=== PATIENT | female | born 1980 | race Hispanic/Latino ===

== ENCOUNTER 2018-10-26 09:06 | Emergency (ER) | payer SELFPAY ==
[2018-10-26 09:58] LABS: Absolute Lymphocytes (CBC) 1.9 K/uL (0.7-4.9); Absolute Monocytes 0.5 K/uL (0.1-1.3); Absolute Neutrophil 3.2 K/uL (1.8-8.0); Basophils % 0.5 % (0-1.3); Eosinophils % 2.7 % (0-4.4); Hematocrit 41.4 % (36.0-45.0); Lymphocytes % 33.4 % (15.3-44.8); MPV 6.9 fL (7.6-11.3); Monocytes % 7.8 % (3.3-12.3)
[2018-10-26 10:04] LABS: Urine Blood 2+ (NEG); Urine Glucose NEGATIVE (NEG); Urine Protein NEGATIVE (NEG); Urine Specific Gravity 1.025 (1.005-1.030); Urine pH 5.5 (5.0-7.0)
[2018-10-26] MEDS ORDERED: NA CHLORIDE 0.9% 1,000 ML ONE (10:11)
[2018-10-26] MEDS ORDERED: ONDANSETRON 4 MG/2 ML VIAL ONE (10:11)
[2018-10-26 10:15] LABS: ALT/SGPT 63 U/L (12-78); AST/SGOT 22 U/L (15-37); Albumin 4.3 g/dL (3.4-5.0); Alkaline Phosphatase 85 U/L (45-117); BUN Blood Urea Nitrogen 15 mg/dL (7-18); Bicarbonate 26 mmol/L (21-32); Bilirubin Direct < 0.1 mg/dL (0-0.2); Bilirubin Total 0.3 mg/dL (0.2-1.0); Glucose Level 91 mg/dL (74-106); Lipase 52 U/L (73-393); Potassium 3.7 mmol/L (3.5-5.1); Sodium Level 138 mmol/L (136-145)
[2018-10-26 10:16] LABS: Urine Bacteria 20-50 /HPF (<20); Urine Culture Reflex Order REFLEXED
--- NOTE | 2018-10-26 10:40 | RAD REPORT ---
EXAM DESCRIPTION: CTAbdomen Pelvis W Contrast - 10/26/2018 10:31 am CLINICAL HISTORY: Abdominal pain. ABD PAIN COMPARISON: Abdomen Pelvis W Contrast dated 08/23/2017 TECHNIQUE: Biphasic CT imaging of the abdomen and pelvis was performed with 100 ml non-ionic IV cont rast. All CT scans are performed using dose optimization technique as appropriate and may include automated exposure control or mA/KV adjustment according to patient size. FINDINGS: The lung bases are clear. The liver demonstrates diffuse fatty infiltration. The spleen, pancreas, adrenal glands and kidneys a re within normal limits. Small renal cysts are present bilaterally. No bowel obstruction, free air, free fluid or abscess. The appendix is normal. No evidence of signi ficant lymphadenopathy. Prominent L5-S1 degenerative changes. IMPRESSION: No acute intra-abdominal or pelvic finding. Mild fatty liver.
--- NOTE | 2018-10-26 11:13 | ER ---
Nurse's Notes [facility] Name: Mirna Allen Age: 37 yrs Sex: Female : 1980 Arrival Date: 10/26/2018 Time: 09:08 Bed 19 Private MD: None, None Diagnosis: Diarrhea, unspecified;Urinary tract infection, site not specified;Unspecified abdominal pain Presentation: 10/26 09:27 Presenting complaint: Patient states: abd pain and diarrhea since yesterday. Transition ss of care: patient was not received from another setting of care. Onset of symptoms was October 25, 2018. Risk Assessment: Do you want to hurt yourself or someone else? Patient reports no desire to harm self or others. Initial Sepsis Screen: Does the patient meet any 2 criteria? No. Patient's initial sepsis screen is negative. Does the patient have a suspected source of infection? No. Patient's initial sepsis screen is negative. Care prior to arrival: None. 09:27 Method Of Arrival: Ambulatory ss 09:27 Acuity: WILLIAM 3 ss Historical: - Allergies: 09:45 No Known Allergies; ss - Home Meds: 09:45 None [Active]; ss - PMHx: 09:45 None; ss - PSHx: 09:45 Tubal ligation; ss - Immunization history:: Adult Immunizations up to date. - Social history:: Smoking status: Patient/guardian denies using tobacco. - Ebola Screening: : Patient denies exposure to infectious person Patient denies travel to an Ebola-affected area in the 21 days before illness onset. Screenin:46 Abuse screen: Denies threats or abuse. Denies injuries from another. Nutritional ss screening: No deficits noted. Tuberculosis screening: No symptoms or risk factors identified. Never had TB. Fall Risk None identified. Assessment: 09:45 General: Appears uncomfortable, Behavior is calm, cooperative, Denies fever, feeling ss ill, fatigue, chills. Pain: Complains of pain in abdomen diffusely Pain currently is 8 out of 10 on a pain scale. Quality of pain is described as aching, Is continuous. Neuro: Level of Consciousness is awake, alert, obeys commands, Oriented to person, place, time, situation. Cardiovascular: Capillary refill < 3 seconds is brisk in bilateral fingers. Respiratory: Airway is patent Respiratory effort is even, unlabored, Respiratory pattern is regular, symmetrical. GI: Bowel sounds present X 4 quads. Abd is soft and non tender X 4 quads. Reports diarrhea, nausea. : No signs and/or symptoms were reported regarding the genitourinary system. Denies burning with urination, urinary frequency. EENT: Oral mucosa is moist. Throat is clear. Derm: Skin is intact, is healthy with good turgor, Skin is dry, Skin is pink, warm \T\ dry. normal. Musculoskeletal: Circulation, motion, and sensation intact. Range of motion: intact in all extremities, Swelling absent. 10:30 Reassessment: Patient appears in no apparent distress at this time. No changes from previously documented assessment. Patient and/or family updated on plan of care and expected duration. Pain level reassessed. 11:30 Reassessment: Patient appears in no apparent distress at this time. Patient and/or ss family updated on plan of care and expected duration. Pain level reassessed. Patient is alert, oriented x 3, equal unlabored respirations, skin warm/dry/pink. Patient states feeling better. Patient states symptoms have improved. Vital Signs: 09:30 BP 126 / 93; Pulse 87; Resp 16; Temp 98.3(O); Pulse Ox 100% on R/A; Weight 65.77 kg; ss Height 4 ft. 11 in. (149.86 cm); Pain 8/10; 11:46 BP 109 / 71; Pulse 65; Resp 15; Pulse Ox 100% on R/A; Pain 5/10; ss 09:30 Body Mass Index 29.29 (65.77 kg, 149.86 cm) ED Course: 09:08 Patient arrived in ED. mr 09:08 None, None is Private Physician. mr 09:24 Poli Alexander NP is PHCP. pm1 09:24 Dmitri Garcia MD is Attending Physician. pm1 09:28 Triage completed. ss 09:30 Arm band placed on right wrist. ss 09:42 Alma Adam, CASTRO is Primary Nurse. ss 09:46 Patient has correct armband on for positive identification. ss 09:46 Inserted saline lock: 20 gauge in right antecubital area, using aseptic technique. Blood collected. 10:27 CT completed. Patient tolerated procedure well. Patient moved to CT via wheelchair. [id number] Patient moved back from CT. 10:28 Urine collected: clean catch specimen, cloudy. mh5 10:32 CT Abd/Pelvis - W/Contrast: IV contrast only In Process Unspecified. EDMS 11:48 No provider procedures requiring assistance completed. IV discontinued, intact, ss bleeding controlled, No redness/swelling at site. Pressure dressing applied. Administered Medications: 10:09 Drug: NS 0.9% 1000 ml Route: IV; Rate: 1000 ml; Site: right antecubital; ss 11:48 Follow up: IV Status: Completed infusion ss 10:09 Drug: Zofran 4 mg Route: IVP; Site: right antecubital; ss 10:56 Follow up: Response: No adverse reaction; Nausea is decreased ss 11:13 Drug: TORadol 30 mg Route: IVP; Site: right antecubital; ss 11:50 Follow up: Response: No adverse reaction; Pain is decreased ss 11:15 Drug: Rocephin 1 grams Route: IV; Rate: calculated rate; Site: right antecubital; ss 11:15 Follow up: IV Status: Completed infusion ss Outcome: 11:12 Discharge ordered by . pm1 11:48 Discharged to home ambulatory, with family. ss 11:48 Condition: good 11:48 Discharge instructions given to patient, family, Instructed on discharge instructions, follow up and referral plans. medication usage, Demonstrated understanding of instructions, follow-up care, medications, Prescriptions given X 3. 11:49 Patient left the ED. ss Addendum: 10/29/2018 07:35 Addendum: Culture Results: Positive urine culture. No further action required. Bacteria s s sensitive to prescribed antibiotic. Signatures: Dispatcher [employer] EDIA XiaoCarla reyes Shelby, RN RN ss Poli Alexander, DARSHAN SOFTWARE QUALITY ASSURANCE ENGINEER pm1 Angelica Alcala Ramiro Anderson, Mirna jg6
--- NOTE | 2018-10-26 11:13 | EDPHYS ---
Physician Documentation [facility] Name: Mirna Allen Age: 37 yrs Sex: Female : 1980 Arrival Date: 10/26/2018 Time: 09:08 Bed 19 Private MD: None, None ED Physician Dmitri Garcia HPI: 10/26 11:07 This 37 yrs old Female presents to ER via Ambulatory with complaints of pm1 Abdominal Pain. 11:07 The patient presents with abdominal pain that is diffuse. Onset: The symptoms/episode pm1 began/occurred yesterday. The symptoms do not radiate. Associated signs and symptoms: Pertinent positives: diarrhea, nausea, Pertinent negatives: blood in stools, chest pain, dysuria, fever, headache, shortness of breath, vomiting. The symptoms are described as crampy. Modifying factors: The symptoms are alleviated by nothing, the symptoms are aggravated by bowel movement - diarrhea. Severity of pain: in the emergency department the pain is actually worse. The patient has not experienced similar symptoms in the past. The patient has not recently seen a physician. Historical: - Allergies: 09:45 No Known Allergies; ss - Home Meds: 09:45 None [Active]; ss - PMHx: 09:45 None; ss - PSHx: 09:45 Tubal ligation; ss - Immunization history:: Adult Immunizations up to date. - Social history:: Smoking status: Patient/guardian denies using tobacco. - Ebola Screening: : Patient denies exposure to infectious person Patient denies travel to an Ebola-affected area in the 21 days before illness onset. ROS: 11:07 Constitutional: Negative for fever, chills, and weight loss, Eyes: Negative for injury, pm1 pain, redness, and discharge, ENT: Negative for injury, pain, and discharge, Neck: Negative for injury, pain, and swelling, Cardiovascular: Negative for chest pain, palpitations, and edema, Respiratory: Negative for shortness of breath, cough, wheezing, and pleuritic chest pain. 11:07 Back: Negative for injury and pain, : Negative for injury, bleeding, discharge, and swelling, MS/Extremity: Negative for injury and deformity, Skin: Negative for injury, rash, and discoloration, Neuro: Negative for headache, weakness, numbness, tingling, and seizure. 11:07 Abdomen/GI: Positive for abdominal pain, nausea, diarrhea, abdominal cramps, Negative for vomiting, hematemesis. Exam: 11:07 Constitutional: This is a well developed, well nourished patient who is awake, alert, pm1 and in no acute distress. Head/Face: Normocephalic, atraumatic. Eyes: Pupils equal round and reactive to light, extra-ocular motions intact. Lids and lashes normal. Conjunctiva and sclera are non-icteric and not injected. Cornea within normal limits. Periorbital areas with no swelling, redness, or edema. ENT: Nares patent. No nasal discharge, no septal abnormalities noted. Tympanic membranes are normal and external auditory canals are clear. Oropharynx with no redness, swelling, or masses, exudates, or evidence of obstruction, uvula midline. Mucous membranes moist. Neck: Trachea midline, no thyromegaly or masses palpated, and no cervical lymphadenopathy. Supple, full range of motion without nuchal rigidity, or vertebral point tenderness. No Meningismus. Chest/axilla: Normal chest wall appearance and motion. Nontender with no deformity. No lesions are appreciated. Cardiovascular: Regular rate and rhythm with a normal S1 and S2. No gallops, murmurs, or rubs. No pulse deficits. Respiratory: Lungs have equal breath sounds bilaterally, clear to auscultation and percussion. No rales, rhonchi or wheezes noted. No increased work of breathing, no retractions or nasal flaring. Back: No spinal tenderness. No costovertebral tenderness. Full range of motion. Skin: Warm, dry with normal turgor. Normal color with no rashes, no lesions, and no evidence of cellulitis. MS/ Extremity: Pulses equal, no cyanosis. Neurovascular intact. Full, normal range of motion. 11:07 Abdomen/GI: Inspection: abdomen appears normal, Bowel sounds: normal, Palpation: soft, mild abdominal tenderness, in the abdomen diffusely, mass, is not appreciated, rebound tenderness, is not appreciated. 11:07 Neuro: Orientation: is normal, Motor: is normal. Vital Signs: 09:30 BP 126 / 93; Pulse 87; Resp 16; Temp 98.3(O); Pulse Ox 100% on R/A; Weight 65.77 kg; ss Height 4 ft. 11 in. (149.86 cm); Pain 8/10; 11:46 BP 109 / 71; Pulse 65; Resp 15; Pulse Ox 100% on R/A; Pain 5/10; ss 09:30 Body Mass Index 29.29 (65.77 kg, 149.86 cm) ss MDM: 09:27 Patient medically screened. pm1 09:27 Patient medically screened. nam 11:07 Data reviewed: vital signs. Data interpreted: Pulse oximetry: on room air is 100 %. pm1 Interpretation: normal. Counseling: I had a detailed discussion with the patient and/or guardian regarding: the historical points, exam findings, and any diagnostic results supporting the discharge/admit diagnosis, lab results, radiology results, the need for outpatient follow up, to return to the emergency department if symptoms worsen or persist or if there are any questions or concerns that arise at home. 10/26 09:28 Order name: Basic Metabolic Panel; Complete Time: 10:19 pm10/26 09:28 Order name: CBC with Diff; Complete Time: 10:11 pm10/26 09:28 Order name: Creatinine for Radiology; Complete Time: 10:19 pm10/26 09:28 Order name: Hepatic Function; Complete Time: 10:19 pm10/26 09:28 Order name: Lipase; Complete Time: 10:19 pm10/26 09:53 Order name: Urine Microscopic Only; Complete Time: 10:19 pm10/26 09:56 Order name: Urine Dipstick--Ancillary (enter results); Complete Time: 10:19 bd 10/26 09:56 Order name: Urine --Ancillary (enter results); Complete Time: 10:19 bd 10/26 10:02 Order name: CT Abd/Pelvis - W/Contrast: IV contrast only; Complete Time: 10:43 pm1 10/26 10:17 Order name: Urine Culture EDMS 10/26 09:28 Order name: IV Saline Lock; Complete Time: 09:53 pm10/26 09:28 Order name: Labs collected and sent; Complete Time: 09:53 pm10/26 09:28 Order name: Urine Dipstick-Ancillary (obtain specimen); Complete Time: 09:53 pm1 10/26 09:28 Order name: Urine Test (obtain specimen); Complete Time: 09:53 pm1 Administered Medications: 10:09 Drug: NS 0.9% 1000 ml Route: IV; Rate: 1000 ml; Site: right antecubital; ss 11:48 Follow up: IV Status: Completed infusion ss 10:09 Drug: Zofran 4 mg Route: IVP; Site: right antecubital; ss 10:56 Follow up: Response: No adverse reaction; Nausea is decreased ss 11:13 Drug: TORadol 30 mg Route: IVP; Site: right antecubital; ss 11:50 Follow up: Response: No adverse reaction; Pain is decreased ss 11:15 Drug: Rocephin 1 grams Route: IV; Rate: calculated rate; Site: right antecubital; ss 11:15 Follow up: IV Status: Completed infusion ss Disposition: 11:57 Co-signature as Attending Physician, Dmitri Garcia MD I agree with the assessment and nam plan of care. Disposition: 10/26/18 11:12 Discharged to Home. Impression: Unspecified abdominal pain, Diarrhea, unspecified, Urinary tract infection, site not specified. - Condition is Stable. - Discharge Instructions: Abdominal Pain, Adult, Food Choices to Help Relieve Diarrhea, Adult, Diarrhea, Adult, Urinary Tract Infection, Adult. - Prescriptions for Bentyl 20 mg Oral Tablet - take 1 tablet by ORAL route every 6 hours As needed; 20 tablet. Zofran 4 mg Oral Tablet - take 1 tablet by ORAL route every 12 hours As needed; 20 tablet. Bactrim DS 800- 160 mg Oral Tablet - take 1 tablet by ORAL route every 12 hours for 10 days; 20 tablet. - Work release form, Family Work Release, Medication Reconciliation Form, Thank You Letter, Antibiotic Education, Prescription Opioid Use form. - Follow up: Emergency Department; When: As needed; Reason: Worsening of condition. Follow up: Private Physician; When: 2 - 3 days; Reason: Recheck today's complaints, Continuance of care, Re-evaluation by your physician. - Problem is new. - Symptoms have improved. Signatures: Dispatcher [employer] Dmitri Alford MD MD cha Smirch, Shelby, RN RN ss Poli Alexander, DARSHAN GERIATRIC NURSE pm1 Corrections: (The following items were deleted from the chart) 11:49 11:12 10/26/2018 11:12 Discharged to Home. Impression: Unspecified abdominal ss painDiarrhea, unspecified; Urinary tract infection, site not specified. Condition is Stable. Forms are Medication Reconciliation Form, Thank You Letter, Antibiotic Education, Prescription Opioid Use. Follow up: Emergency Department; When: As needed; Reason: Worsening of condition. Follow up: Private Physician; When: 2 - 3 days; Reason: Recheck today's complaints, Continuance of care, Re-evaluation by your physician. Problem is new. Symptoms have improved. pm1
[2018-10-26] MEDS ORDERED: CEFTRIAXONE/SWI 1gm 1 GM/10 ML SYR ONE (11:14)
[2018-10-26] MEDS ORDERED: KETOROLAC 30 MG/ML INJ ONE (11:14)
== END 2018-10-26 11:49 | disposition home or self-care (01) ==
LOC: ER 09:06
DX: N39.0 Urinary tract infection, site not specified (principal); R19.7 Diarrhea, unspecified
CPT/HCPCS: 36415; 74177; 80048; 80076; 81003; 81015; 81025; 83690; 85025; 87077; 87086; 87088; 87186; 96361; 96374; 96375; 99284; J0696; J2405; J7030; Q9967

== ENCOUNTER 2018-11-14 07:56 | Emergency (ER) | payer SELFPAY ==
[2018-11-14] MEDS ORDERED: DEXAMETHASONE 10 MG/ML VIAL ONE (08:26)
[2018-11-14] MEDS ORDERED: KETOROLAC 30 MG/ML INJ ONE (08:26)
--- NOTE | 2018-11-14 08:28 | EDPHYS ---
Physician Documentation [facility] Name: Mirna Allen Age: 37 yrs Sex: Female : 1980 Arrival Date: 11/14/2018 Time: 07:59 Bed 5 Private MD: ED Physician Fortino Tidwell HPI: 11/14 08:17 This 37 yrs old Female presents to ER via Ambulatory with complaints of Low rn Back Pain, Leg Pain. 08:17 The patient presents with pain that is acute. The symptoms are located in the low back. rn The pain radiates to the right leg. Onset: The symptoms/episode began/occurred 2 day(s) ago. Modifying factors: The patient symptoms are alleviated by specific position, the patient symptoms are aggravated by any movement. Severity of symptoms: At their worst the symptoms were mild, in the emergency department the symptoms are unchanged. The patient has not experienced similar symptoms in the past. Reports Wednesday began with right lower back pain, now back pain has resolved but is experiencing right leg pain, feels "cold" and tingling. Fell recently but did not injure back. No bowel/bladder issues. No chest pain/abd pain. No weakness of affected leg. Reports chronic back pain. . Historical: - Allergies: 08:02 No Known Allergies; ss - Home Meds: 08:02 None [Active]; ss - PMHx: 08:02 None; ss - PSHx: 08:02 Tubal ligation; ss - Immunization history:: Adult Immunizations up to date. - Social history:: Smoking status: Patient uses tobacco products, smokes one-half pack cigarettes per day. - Ebola Screening: : Patient denies exposure to infectious person Patient denies travel to an Ebola-affected area in the 21 days before illness onset. - Family history:: not pertinent. - Hospitalizations: : No recent hospitalization is reported. ROS: 08:17 Constitutional: Negative for fever, chills, and weight loss, Eyes: Negative for injury, rn pain, redness, and discharge, Neck: Negative for injury, pain, and swelling, Cardiovascular: Negative for chest pain, palpitations, and edema, Respiratory: Negative for shortness of breath, cough, wheezing, and pleuritic chest pain, Abdomen/GI: Negative for abdominal pain, nausea, vomiting, diarrhea, and constipation, Back: Negative for injury and pain, MS/Extremity: + right leg pain Skin: Negative for injury, rash, and discoloration, Neuro: Negative for headache, weakness, and seizure. Exam: 08:17 Constitutional: This is a well developed, well nourished patient who is awake, alert, rn appears uncomfortable, ambulatory to room Head/Face: Normocephalic, atraumatic. Eyes: Pupils equal round and reactive to light, extra-ocular motions intact. Lids and lashes normal. Conjunctiva and sclera are non-icteric and not injected. Cornea within normal limits. Periorbital areas with no swelling, redness, or edema. Abdomen/GI: soft, non-tender Back: No spinal tenderness. No costovertebral tenderness. Full range of motion. Skin: Warm, dry with normal turgor. Normal color with no rashes, no lesions, and no evidence of cellulitis. MS/ Extremity: Pulses equal, no cyanosis. Neurovascular intact. Full, normal range of motion. Equal circumference. Neuro: Awake and alert, GCS 15, oriented to person, place, time, and situation. Cranial nerves II-XII grossly intact. Motor strength 5/5 in all extremities. Sensory grossly intact. Cerebellar exam normal. Normal gait. Vital Signs: 08:02 BP 125 / 86; Pulse 104; Resp 18; Temp 97.6(TE); Pulse Ox 98% on R/A; Weight 63.5 kg; ss Height 5 ft. 11 in. (180.34 cm); Pain 8/10; 08:02 Body Mass Index 19.53 (63.50 kg, 180.34 cm) MDM: 08:04 Patient medically screened. rn 08:26 Differential diagnosis: arthritis, strain, sciatica. Data reviewed: vital signs, nurses rn notes, and as a result, I will discharge patient. Counseling: I had a detailed discussion with the patient and/or guardian regarding: the historical points, exam findings, and any diagnostic results supporting the discharge/admit diagnosis, the need for outpatient follow up, to return to the emergency department if symptoms worsen or persist or if there are any questions or concerns that arise at home. Special discussion: I discussed with the patient/guardian in detail that at this point there is no indication for admission to the hospital. It is understood, however, that if the symptoms persist or worsen the patient needs to return immediately for re-evaluation. Based on the history and exam findings, there is no indication for further emergent testing or inpatient evaluation. I discussed with the patient/guardian the need to see the back specialist for further evaluation of the symptoms. I discussed with the patient/guardian the need to see the primary care provider for further evaluation of the symptoms. Administered Medications: 08: Drug: TORadol 60 mg Route: IM; Site: left gluteus; aa5 08:40 Follow up: Response: No adverse reaction; Pain is decreased aa5 08:19 Drug: Decadron 10 mg Route: IM; Site: right gluteus; aa5 08:40 Follow up: Response: No adverse reaction; Pain is decreased aa5 Disposition: 11/14/18 08:27 Discharged to Home. Impression: Radiculopathy, lumbosacral region. - Condition is Stable. - Discharge Instructions: Lumbosacral Radiculopathy. - Prescriptions for Cyclobenzaprine 10 mg Oral Tablet - take 1 tablet by ORAL route every 8-12 hours As needed; 20 tablet. Diclofenac Sodium 75 mg Oral Tablet, Delayed Release (E.C.) - take 1 tablet by ORAL route 2 times per day; 20 tablet. Medrol (Rusty) 4 mg Oral Tablets, Dose Pack - take 1 tablet by ORAL route as directed - follow package instructions; 1 packet. - Work release form, Medication Reconciliation Form, Thank You Letter, Antibiotic Education, Prescription Opioid Use form. - Follow up: Private Physician; When: As needed; Reason: Recheck today's complaints, Re-evaluation by your physician. - Problem is new. - Symptoms have improved. Signatures: Fortino Tidwell MD MD rn Calderon, Audri, RN RN aa5 Alma Adam RN RN ss Corrections: (The following items were deleted from the chart) 08:46 08:27 11/14/2018 08:27 Discharged to Home. Impression: Radiculopathy, lumbosacral aa5 region. Condition is Stable. Forms are Medication Reconciliation Form, Thank You Letter, Antibiotic Education, Prescription Opioid Use. Follow up: Private Physician; When: As needed; Reason: Recheck today's complaints, Re-evaluation by your physician. Problem is new. Symptoms have improved. rn
--- NOTE | 2018-11-14 08:28 | ER ---
Nurse's Notes [facility] Name: Mirna Allen Age: 37 yrs Sex: Female : 1980 Arrival Date: 11/14/2018 Time: 07:59 Bed 5 Private MD: Diagnosis: Radiculopathy, lumbosacral region Presentation: 11/14 08:01 Presenting complaint: Patient states: Pain to R buttock that radiates down R leg began ss 2 days ago. Transition of care: patient was not received from another setting of care. Onset of symptoms was November 12, 2018. Risk Assessment: Do you want to hurt yourself or someone else? Patient reports no desire to harm self or others. Initial Sepsis Screen: Does the patient meet any 2 criteria? No. Patient's initial sepsis screen is negative. Does the patient have a suspected source of infection? No. Patient's initial sepsis screen is negative. Care prior to arrival: None. 08:01 Method Of Arrival: Ambulatory ss 08:01 Acuity: WILLIAM 4 ss Historical: - Allergies: 08:02 No Known Allergies; ss - Home Meds: 08:02 None [Active]; ss - PMHx: 08:02 None; ss - PSHx: 08:02 Tubal ligation; ss - Immunization history:: Adult Immunizations up to date. - Social history:: Smoking status: Patient uses tobacco products, smokes one-half pack cigarettes per day. - Ebola Screening: : Patient denies exposure to infectious person Patient denies travel to an Ebola-affected area in the 21 days before illness onset. - Family history:: not pertinent. - Hospitalizations: : No recent hospitalization is reported. Screenin:15 Abuse screen: Denies threats or abuse. Nutritional screening: No deficits noted. aa5 Tuberculosis screening: No symptoms or risk factors identified. Fall Risk None identified. Assessment: 08:15 General: Appears uncomfortable, Behavior is calm, cooperative. Pain: Complains of pain aa5 in right gluteus mariely Pain radiates to right leg Pain currently is 8 out of 10 on a pain scale. Quality of pain is described as sharp, shooting, Pain began 2-3 days ago. Is continuous. Neuro: Level of Consciousness is awake, alert, obeys commands, Oriented to person, place, time, situation. Cardiovascular: Patient's skin is warm and dry. Respiratory: Airway is patent Respiratory effort is even, unlabored, Respiratory pattern is regular, symmetrical. GI: No signs and/or symptoms were reported involving the gastrointestinal system. : No signs and/or symptoms were reported regarding the genitourinary system. EENT: No signs and/or symptoms were reported regarding the EENT system. Derm: Skin is pink, warm \T\ dry. Musculoskeletal: Range of motion: intact in all extremities. 08:43 Reassessment: Patient is alert, oriented x 3, equal unlabored respirations, skin aa5 warm/dry/pink. Patient states feeling better. Vital Signs: 08:02 BP 125 / 86; Pulse 104; Resp 18; Temp 97.6(TE); Pulse Ox 98% on R/A; Weight 63.5 kg; ss Height 5 ft. 11 in. (180.34 cm); Pain 8/10; 08:02 Body Mass Index 19.53 (63.50 kg, 180.34 cm) ED Course: 07:59 Patient arrived in ED. rg4 08:02 Triage completed. ss 08:02 Arm band placed on right wrist. ss 08:03 Fortino Tidwell MD is Attending Physician. rn 08:04 Zahida Barber RN is Primary Nurse. aa5 08:15 Patient has correct armband on for positive identification. Bed in low position. Call aa5 light in reach. Side rails up X 1. 08:43 No provider procedures requiring assistance completed. Patient did not have IV access aa5 during this emergency room visit. Administered Medications: 08:19 Drug: TORadol 60 mg Route: IM; Site: left gluteus; aa5 08:40 Follow up: Response: No adverse reaction; Pain is decreased aa5 08:19 Drug: Decadron 10 mg Route: IM; Site: right gluteus; aa5 08:40 Follow up: Response: No adverse reaction; Pain is decreased aa5 Outcome: 08:27 Discharge ordered by . rn 08:43 Discharged to home ambulatory. aa5 08:43 Condition: improved 08:43 Discharge instructions given to patient, Instructed on discharge instructions, follow up and referral plans. medication usage, Demonstrated understanding of instructions, follow-up care, medications, Prescriptions given X 3. 08:46 Patient left the ED. aa5 Signatures: Fortino Tidwell MD MD rn Calderon, Audri, RN RN aa5 Alma Adam, CASTRO RN Nuzhat Perry 4
== END 2018-11-14 08:46 | disposition home or self-care (01) ==
LOC: ER 07:56
DX: M54.17 Radiculopathy, lumbosacral region (principal); F17.210 Nicotine dependence, cigarettes, uncomplicated
CPT/HCPCS: 96372; 99283; J1100

== ENCOUNTER 2019-03-05 09:47 | Emergency (ER) | payer OTHER, SELFPAY ==
[2019-03-05] MEDS ORDERED: ACETAMINOPHEN 325 MG TABLET ONE (10:39)
[2019-03-05] MEDS ORDERED: IBUPROFEN 400 MG TAB ONE (10:39)
[2019-03-05 10:50] LABS: Urine Blood 2+ (NEG); Urine Glucose NEGATIVE (NEG); Urine Protein NEGATIVE (NEG); Urine Specific Gravity >1.030 (1.005-1.030); Urine pH 5.5 (5.0-7.0)
--- NOTE | 2019-03-05 11:29 | RAD REPORT ---
EXAM DESCRIPTION: RAD - Knee Left 3 View - 03/05/2019 11:17 am CLINICAL HISTORY: Left knee pain COMPARISON: None. FINDINGS: No fracture, dislocation or periosteal reaction.No joint effusion seen. No joint space [place] rowing. No soft tissue abnormality. IMPRESSION: Negative left knee. Clinical concerns for internal derangement or occult bony injury could be further assessed with MR im aging.
--- NOTE | 2019-03-05 11:35 | EDPHYS ---
Physician Documentation [facility] Name: Mirna Allen Age: 38 yrs Sex: Female : 1980 Arrival Date: 03/05/2019 Time: 09:51 Bed 18 Private MD: FLORA Physician Dmitri Garcia HPI: 03/05 10:15 This 38 yrs old Female presents to ER via Ambulatory with complaints of Knee cp Injury. 10:15 The patient presents with an injury, pain, that is acute, swelling, tenderness. The cp complaints affect the left knee. Context: The problem was sustained at work, resulted from fall after stepping off lift that was 2-3 feet off ground at work. Patient reports she landed directly onto knee, the patient is not able to bear weight, must have assistance. Onset: The symptoms/episode began/occurred just prior to arrival. Associated signs and symptoms: Pertinent negatives numbness. Historical: - Allergies: 09:58 No Known Allergies; ss - Home Meds: 09:58 None [Active]; ss - PMHx: 09:58 None; ss - PSHx: 09:58 Tubal ligation; ss - Immunization history:: Adult Immunizations up to date. - Social history:: Smoking status: Patient/guardian denies using tobacco. - Ebola Screening: : Patient denies exposure to infectious person Patient denies travel to an Ebola-affected area in the 21 days before illness onset. ROS: 10:22 Constitutional: Negative for chills, fever, poor PO intake. cp 10:22 Cardiovascular: Negative for chest pain. 10:22 Respiratory: Negative for cough, shortness of breath, wheezing. 10:22 Abdomen/GI: Negative for abdominal pain, nausea, vomiting, and diarrhea. 10:22 MS/extremity: Positive for pain, tenderness, of the left knee. 10:22 Neuro: Negative for numbness. 10:22 All other systems are negative. Exam: 10:30 Constitutional: The patient appears in no acute distress, alert, awake, non-toxic, well cp developed, well nourished. 10:30 Head/Face: Normocephalic, atraumatic. cp 10:30 Eyes: Periorbital structures: appear normal, Conjunctiva: normal, Lids and lashes: appear normal, bilaterally. 10:30 ENT: External ear(s): are unremarkable, Nose: is normal, Mouth: is normal. 10:30 Chest/axilla: Inspection: normal. 10:30 Cardiovascular: Rate: normal, Rhythm: regular. 10:30 Respiratory: the patient does not display signs of respiratory distress, Respirations: normal, no use of accessory muscles, no retractions, no splinting, no tachypnea. 10:30 Abdomen/GI: Inspection: abdomen appears normal. 10:30 Musculoskeletal/extremity: Extremities: grossly normal except: noted in the left knee: pain, swelling, tenderness, There is no evidence of deformity, ROM: limited passive range of motion due to pain, in the left knee, Perfusion: the extremity is normally perfused throughout, Sensation intact. Vital Signs: 09:58 BP 110 / 83; Pulse 89; Resp 15; Temp 98.4(O); Pulse Ox 100% on R/A; Weight 65.77 kg; ss Height 4 ft. 11 in. (149.86 cm); Pain 10/10; 09:58 Body Mass Index 29.29 (65.77 kg, 149.86 cm) ss Procedures: 11:55 Splinting: Splint applied to left knee using knee immobilizer, applied by nurse. cp Examined by me, post splint application: neurovascular intact, Patient tolerated well. 11:55 Crutch training provided to patient and/or family. Return demonstration given. cp MDM: 09:57 Patient medically screened. nam 10:30 Differential diagnosis: dislocation, closed fracture, contusion. cp 11:35 Data reviewed: vital signs, nurses notes, radiologic studies, plain films. cp 11:35 Test interpretation: by ED physician or midlevel provider: xrays of left knee negative cp for fracture. Counseling: I had a detailed discussion with the patient and/or guardian regarding: the historical points, exam findings, and any diagnostic results supporting the discharge/admit diagnosis, radiology results, the need for outpatient follow up, a family practitioner, to return to the emergency department if symptoms worsen or persist or if there are any questions or concerns that arise at home. Response to treatment: the patient's symptoms have mildly improved after treatment, and as a result, I will discharge patient. 03/05 10:34 Order name: Urine Dipstick--Ancillary (enter results); Complete Time: 11:26 bd 03/05 11:25 Interpretation: Normal except: UBLD 2+; U NIT POSITIVE. cp 03/05 10:34 Order name: Urine --Ancillary (enter results); Complete Time: 11:26 bd 03/05 10:13 Order name: XRAY Knee LEFT 3 view; Complete Time: 11:30 cp 03/05 11:30 Interpretation: Report reviewed. cp 03/05 11:32 Order name: Crutches; Complete Time: 12:00 cp 03/05 11:32 Order name: Knee Immobilizer; Complete Time: 12:00 cp Administered Medications: 10:38 Drug: Ibuprofen 800 mg Route: PO; em 12:02 Follow up: Response: No adverse reaction; Pain is decreased em 10:38 Drug: Tylenol 650 mg Route: PO; em 12:02 Follow up: Response: No adverse reaction; Pain is decreased em Disposition: 12:15 Chart complete. 03/06 07:18 Co-signature as Attending Physician, Dmitri Garcia MD I agree with the assessment and nam plan of care. Disposition: 03/05/19 11:35 Discharged to Home. Impression: Pain in left knee - from fall. - Condition is Stable. - Discharge Instructions: Knee Immobilizer, Knee Pain. - Prescriptions for Naprosyn 500 mg Oral Tablet - take 1 tablet by ORAL route 2 times per day take with food; 20 tablet. - Work release form, Medication Reconciliation Form, Thank You Letter, Antibiotic Education, Prescription Opioid Use form. - Follow up: Nelson Carrizales MD; When: 2 - 3 days; Reason: Recheck today's complaints. - Problem is new. - Symptoms have improved. Signatures: Dispatcher [employer] Dmitri Alford MD MD cha Munoz, Edgar, [employer] MACHINE OPERATOR [employer] MACHINE OPERATOR Alma De Jesus RN RN Dmitri Gan PA PA cp Corrections: (The following items were deleted from the chart) 03/05 12:03 11:35 03/05/2019 11:35 Discharged to Home. Impression: Pain in left knee - from fall. em Condition is Stable. Forms are Medication Reconciliation Form, Thank You Letter, Antibiotic Education, Prescription Opioid Use. Follow up: Nelson Carrizales; When: 2 - 3 days; Reason: Recheck today's complaints. Problem is new. Symptoms have improved. cp
--- NOTE | 2019-03-05 11:35 | ER ---
Nurse's Notes [facility] Name: Mirna Allen Age: 38 yrs Sex: Female : 1980 Arrival Date: 03/05/2019 Time: 09:51 Bed 18 Private MD: Diagnosis: Pain in left knee-from fall Presentation: 03/05 09:56 Presenting complaint: Patient states: Fell off of lift at work 2-3 feet onto L knee. ss C/o L knee pain. No swelling noted. Transition of care: patient was not received from another setting of care. Onset of symptoms was March 05, 2019. Risk Assessment: Do you want to hurt yourself or someone else? Patient reports no desire to harm self or others. Initial Sepsis Screen: Does the patient meet any 2 criteria? No. Patient's initial sepsis screen is negative. Does the patient have a suspected source of infection? No. Patient's initial sepsis screen is negative. Care prior to arrival: None. 09:56 Method Of Arrival: Ambulatory ss 09:56 Acuity: WILLIAM 4 ss Historical: - Allergies: 09:58 No Known Allergies; ss - Home Meds: 09:58 None [Active]; ss - PMHx: 09:58 None; ss - PSHx: 09:58 Tubal ligation; ss - Immunization history:: Adult Immunizations up to date. - Social history:: Smoking status: Patient/guardian denies using tobacco. - Ebola Screening: : Patient denies exposure to infectious person Patient denies travel to an Ebola-affected area in the 21 days before illness onset. Screenin:03 Abuse screen: Denies threats or abuse. Nutritional screening: No deficits noted. em Tuberculosis screening: No symptoms or risk factors identified. Fall Risk None identified. Assessment: 10:04 General: Appears in no apparent distress. comfortable. Pain: Complains of pain in left em knee Pain currently is 10 out of 10 on a pain scale. Neuro: Level of Consciousness is awake, alert, obeys commands, Oriented to person, place, time, situation. Cardiovascular: Capillary refill < 3 seconds Patient's skin is warm and dry. Respiratory: Airway is patent Respiratory effort is even, unlabored, Respiratory pattern is regular, symmetrical. Derm: Skin is intact, is healthy with good turgor, Skin is pink, warm \T\ dry. Musculoskeletal: Capillary refill < 3 seconds, Range of motion: limited in left knee. 10:50 General: I agree with the previous assessment. Pt c/o L knee pain. NAD at this time. . ss 11:10 Reassessment: x-ray at bedside. Vital Signs: 09:58 BP 110 / 83; Pulse 89; Resp 15; Temp 98.4(O); Pulse Ox 100% on R/A; Weight 65.77 kg; ss Height 4 ft. 11 in. (149.86 cm); Pain 10; 09:58 Body Mass Index 29.29 (65.77 kg, 149.86 cm) ED Course: 09:51 Patient arrived in ED. as 09:56 Dmitri Slaughter PA is PHCP. cp 09:56 Dmitri Garcia MD is Attending Physician. cp 09:58 Triage completed. ss 09:58 Angel Medina LVN is Primary Nurse. em 09:58 Arm band placed on right wrist. ss 10:03 Patient has correct armband on for positive identification. Placed in gown. Bed in low em position. Call light in reach. 11:17 XRAY Knee LEFT 3 view In Process Unspecified. EDMS 11:34 Nelson Carrizales MD is Referral Physician. cp Administered Medications: 10:38 Drug: Ibuprofen 800 mg Route: PO; em 12:02 Follow up: Response: No adverse reaction; Pain is decreased em 10:38 Drug: Tylenol 650 mg Route: PO; em 12:02 Follow up: Response: No adverse reaction; Pain is decreased em Outcome: 11:35 Discharge ordered by . cp 12:03 Patient left the ED. em Signatures: Dispatcher [employer] EDMS Angel Medina LVN LVN em Amanda Alcala Shelby, RN RN Dmitri Slaughter PA PA cp
== END 2019-03-05 12:03 | disposition home or self-care (01) ==
LOC: ER 09:47
DX: M25.562 Pain in left knee (principal); W17.89XA Other fall from one level to another, initial encounter; Y93.89 Activity, other specified; Y92.89 Other specified places as the place of occurrence of the external cause; Y99.8 Other external cause status
CPT/HCPCS: 81003; 81025; 99283

== ENCOUNTER 2019-06-12 20:40 | Emergency (ER) | payer OTHER ==
[2019-06-12] MEDS ORDERED: KETOROLAC 30 MG/ML INJ ONE (21:11)
[2019-06-12] MEDS ORDERED: CYCLOBENZAPRINE 10 MG TAB ONE (21:11)
--- NOTE | 2019-06-12 21:25 | EDPHYS ---
Physician Documentation [facility] Name: Mirna Allen Age: 38 yrs Sex: Female : 1980 Arrival Date: 06/12/2019 Time: 20:44 Bed 14 Private MD: ED Physician Jd Miranda HPI: 06/13 01:34 This 38 yrs old Female presents to ER via Ambulatory with complaints of tw4 Shoulder Pain, Back Pain. 01:34 The patient or guardian complains of decreased range of motion, deformity. right tw4 shoulder. Context: The problem was sustained at an unknown site. Onset: The symptoms/episode began/occurred 2 week(s) ago. Modifying factors: the symptoms are alleviated by nothing. The symptoms are aggravated by nothing. Severity of symptoms: At their worst the symptoms were moderate, in the emergency department the symptoms are unchanged. The patient has not experienced similar symptoms in the past. Historical: - Allergies: 06/12 22:06 No Known Allergies; ea - Home Meds: 22:06 None [Active]; ea - Immunization history:: Adult Immunizations up to date. - Social history:: Smoking status: Patient uses tobacco products, smokes one pack cigarettes per day. - Ebola Screening: : No symptoms or risks identified at this time No symptoms or risks identified at this time. ROS: 06/13 01:34 Constitutional: Negative for fever, chills, and weight loss, Eyes: Negative for injury, tw4 pain, redness, and discharge, ENT: Negative for injury, pain, and discharge, Cardiovascular: Negative for chest pain, palpitations, and edema, Respiratory: Negative for shortness of breath, cough, wheezing, and pleuritic chest pain, Abdomen/GI: Negative for abdominal pain, nausea, vomiting, diarrhea, and constipation, Skin: Negative for injury, rash, and discoloration, Neuro: Negative for headache, weakness, numbness, tingling, and seizure. MS/extremity: Positive for pain, tenderness, of the anterior aspect of right shoulder. Exam: 01:34 Constitutional: This is a well developed, well nourished patient who is awake, alert, tw4 and in no acute distress. Head/Face: Normocephalic, atraumatic. Chest/axilla: Normal chest wall appearance and motion. Nontender with no deformity. No lesions are appreciated. Cardiovascular: Regular rate and rhythm with a normal S1 and S2. No gallops, murmurs, or rubs. Normal PMI, no JVD. No pulse deficits. Respiratory: Lungs have equal breath sounds bilaterally, clear to auscultation and percussion. No rales, rhonchi or wheezes noted. No increased work of breathing, no retractions or nasal flaring. Abdomen/GI: Soft, non-tender, with normal bowel sounds. No distension or tympany. No guarding or rebound. No evidence of tenderness throughout. Neuro: Awake and alert, GCS 15, oriented to person, place, time, and situation. Cranial nerves II-XII grossly intact. Motor strength 5/5 in all extremities. Sensory grossly intact. Cerebellar exam normal. Normal gait. Psych: Awake, alert, with orientation to person, place and time. Behavior, mood, and affect are within normal limits. 01:34 Musculoskeletal/extremity: Extremities: grossly normal except: noted in the anterior aspect of right shoulder: Vital Signs: 06/12 20:50 BP 142 / 97; Pulse 75; Resp 18; Pulse Ox 98% on R/A; ea 21:30 BP 111 / 81; Pulse 75; Resp 18; Pulse Ox 97% ; ea MDM: 20:55 Patient medically screened. tw4 06/13 01:34 Data reviewed: vital signs, nurses notes. Data interpreted: Pulse oximetry: tw4 Interpretation:. Counseling: I had a detailed discussion with the patient and/or guardian regarding: the historical points, exam findings, and any diagnostic results supporting the discharge/admit diagnosis. Medication response: Toradol markedly relieved the patient's pain. Response to treatment: and as a result, I will discharge patient. Administered Medications: 06/12 21:15 Drug: TORadol 60 mg Route: IM; Site: right gluteus; ea 22:19 Follow up: Response: No adverse reaction; Pain is decreased ea 21:16 Drug: Flexeril 10 mg Route: PO; ea 22:19 Follow up: Response: No adverse reaction; Pain is decreased ea Disposition: 06/12/19 21:24 Discharged to Home. Impression: Other sprain of right shoulder joint. - Condition is Stable. - Discharge Instructions: Shoulder Pain, Shoulder Sprain. - Prescriptions for Ibuprofen 800 mg Oral Tablet - take 1 tablet by ORAL route every 8 hours As needed take with food; 30 tablet. Tramadol 50 mg Oral Tablet - take 1 tablet by ORAL route every 8 hours as needed; 12 tablet. Cyclobenzaprine 5 mg Oral Tablet - take 1 tablet by ORAL route 3 times per day As needed; 15 tablet. - Work release form, Medication Reconciliation Form, Thank You Letter, Antibiotic Education, Prescription Opioid Use form. - Follow up: Private Physician; When: Upon discharge from the Emergency Department; Reason: Recheck today's complaints, Continuance of care. - Problem is new. - Symptoms have improved. Signatures: Char Evans RN RN ea Wadley, Terrence, MD MD tw4 Corrections: (The following items were deleted from the chart) 22:18 21:24 06/12/2019 21:24 Discharged to Home. Impression: Other sprain of right shoulder ea joint. Condition is Stable. Forms are Medication Reconciliation Form, Thank You Letter, Antibiotic Education, Prescription Opioid Use. Follow up: Private Physician; When: Upon discharge from the Emergency Department; Reason: Recheck today's complaints, Continuance of care. Problem is new. Symptoms have improved. tw4
--- NOTE | 2019-06-12 22:19 | ER ---
Nurse's Notes [facility] Name: Mirna Allen Age: 38 yrs Sex: Female : 1980 Arrival Date: 06/12/2019 Time: 20:44 Bed 14 Private MD: Diagnosis: Other sprain of right shoulder joint Presentation: 06/12 21:00 Presenting complaint: Patient states: Report right shoulder pain that has been going on ea for 3 to four weeks, pt reports the pain is at the shoulder, it hurts with movement of the arm. Transition of care: patient was not received from another setting of care. Onset of symptoms was June 12, 2019. Risk Assessment: Do you want to hurt yourself or someone else? Patient reports no desire to harm self or others. Initial Sepsis Screen: Does the patient meet any 2 criteria? No. Patient's initial sepsis screen is negative. Does the patient have a suspected source of infection? No. Patient's initial sepsis screen is negative. Care prior to arrival: None. 21:00 Method Of Arrival: Ambulatory ea 21:00 Acuity: WILLIAM 3 ea Triage Assessment: 21:00 General: Appears uncomfortable, Behavior is calm, cooperative. Pain: Complains of pain ea in anterior aspect of right shoulder and posterior aspect of right shoulder. Musculoskeletal: Circulation, motion, and sensation intact. Historical: - Allergies: 22:06 No Known Allergies; ea - Home Meds: 22:06 None [Active]; ea - Immunization history:: Adult Immunizations up to date. - Social history:: Smoking status: Patient uses tobacco products, smokes one pack cigarettes per day. - Ebola Screening: : No symptoms or risks identified at this time No symptoms or risks identified at this time. Screenin:00 Abuse screen: Denies threats or abuse. Nutritional screening: No deficits noted. ea Tuberculosis screening: No symptoms or risk factors identified. 21:00 Fall Risk None identified. ea Assessment: 22:10 Reassessment: Patient and/or family updated on plan of care and expected duration. Pain ea level reassessed. Patient is alert, oriented x 3, equal unlabored respirations, skin warm/dry/pink. Discharge instruction given to patient, verbalized the understanding of instruction. Pt left ED ambulatory accompanied by family. Tolerating well. Vital Signs: 20:50 BP 142 / 97; Pulse 75; Resp 18; Pulse Ox 98% on R/A; ea 21:30 BP 111 / 81; Pulse 75; Resp 18; Pulse Ox 97% ; ea ED Course: 20:44 Patient arrived in ED. cf2 20:50 Jd Miranda MD is Attending Physician. tw4 21:00 Patient has correct armband on for positive identification. Bed in low position. Call ea light in reach. 21:00 Arm band placed on right wrist. Patient placed in an exam room, on a stretcher, on ea pulse oximetry. 21:01 Char Evans, RN is Primary Nurse. ea 22:04 Triage completed. ea 22:07 No provider procedures requiring assistance completed. Patient did not have IV access ea during this emergency room visit. Administered Medications: 21:15 Drug: TORadol 60 mg Route: IM; Site: right gluteus; ea 22:19 Follow up: Response: No adverse reaction; Pain is decreased ea 21:16 Drug: Flexeril 10 mg Route: PO; ea 22:19 Follow up: Response: No adverse reaction; Pain is decreased ea Outcome: 21:24 Discharge ordered by . tw4 22:15 Discharged to home ambulatory, with family. ea 22:15 Condition: stable 22:15 Discharge instructions given to patient, Instructed on discharge instructions, follow up and referral plans. medication usage, Demonstrated understanding of instructions, follow-up care, medications, Prescriptions given X 3. 22:18 Patient left the ED. ea Signatures: Char Evans RN RN ea Wadley, Terrence, MD MD tw4 Og Davis cf2
[2019-06-12 23:28] VITALS: BP 111/81; O2SAT 97
== END 2019-06-12 22:18 | disposition home or self-care (01) ==
LOC: ER 20:40
DX: S43.491A Other sprain of right shoulder joint, initial encounter (principal); X58.XXXA Exposure to other specified factors, initial encounter; Y93.9 Activity, unspecified; Y92.9 Unspecified place or not applicable; F17.210 Nicotine dependence, cigarettes, uncomplicated
CPT/HCPCS: 96372; 99283

== ENCOUNTER 2019-09-23 11:29 | Emergency (ER) | payer OTHER ==
[2019-09-23] MEDS ORDERED: HYDROCODONE/APAP 10/325 TAB ONE (11:58)
--- NOTE | 2019-09-23 13:37 | RAD REPORT ---
EXAM DESCRIPTION: RAD - Foot Right 3 View - 09/23/2019 12:15 pm CLINICAL HISTORY: PAIN COMPARISON: No comparisons FINDINGS: No fracture, dislocation or periosteal reaction. No acute bone or joint finding. No air or foreign body in the soft tissues. IMPRESSION: Negative right foot examination. Repeat imaging in 7 days could be performed there are continued symptoms concerning for occult fractu re. MR imaging could be performed as well to evaluate for bone bruise or other radiographic occult fi ndings.
--- NOTE | 2019-09-23 13:58 | EDPHYS ---
Physician Documentation [facility] Name: Mirna Allen Age: 38 yrs Sex: Female : 1980 Arrival Date: 09/23/2019 Time: 11:33 Bed 19 Private MD: Dmitri Grubbs HPI: 09/23 11:49 This 38 yrs old Female presents to ER via Wheelchair with complaints of Right pm1 Foot Injury. 11:49 The patient presents with a crush injury, from a heavy object. The complaints affect pm1 the dorsum of right foot. Context: The problem was sustained at work, resulted from metal object that was standings on the floor fell over onto the top of her right foot, the patient can partially bear weight, the patient is able to ambulate, Problem is a result from a previous injury: No. Onset: The symptoms/episode began/occurred just prior to arrival. Modifying factors: The symptoms are alleviated by elevating leg, the symptoms are aggravated by weight bearing. Associated signs and symptoms: Pertinent negatives numbness, tingling. Treatment prior to arrival includes: no previous treatment. The patient has not experienced similar symptoms in the past. 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 tw2 Historical: - Allergies: 11:53 No Known Allergies; ss - Home Meds: 11:53 None [Active]; ss - PMHx: 11:53 None; ss - PSHx: 11:53 Tubal ligation; ss - Immunization history:: Adult Immunizations up to date. - Coronavirus screen:: The patient has NOT traveled to [place] in the past 14 days. - Social history:: Smoking status: Patient denies any tobacco usage or history of. - Ebola Screening: : Patient denies exposure to infectious person Patient denies travel to an Ebola-affected area in the 21 days before illness onset. ROS: 11:49 Constitutional: Negative for fever, chills, and weight loss, Cardiovascular: Negative pm1 for chest pain, palpitations, and edema, Respiratory: Negative for shortness of breath, cough, wheezing, and pleuritic chest pain, Back: Negative for injury and pain. 11:49 Skin: Negative for injury, rash, and discoloration, Neuro: Negative for headache, weakness, numbness, tingling, and seizure. 11:49 MS/extremity: Positive for pain, of the dorsum of right foot, Negative for decreased range of motion, paresthesias, tingling. 11:49 All other systems are negative. Exam: 11:49 Constitutional: This is a well developed, well nourished patient who is awake, alert, pm1 and in no acute distress. Head/Face: Normocephalic, atraumatic. Neck: Trachea midline, no thyromegaly or masses palpated, and no cervical lymphadenopathy. Supple, full range of motion without nuchal rigidity, or vertebral point tenderness. No Meningismus. Chest/axilla: Normal chest wall appearance and motion. Nontender with no deformity. No lesions are appreciated. Cardiovascular: Regular rate and rhythm with a normal S1 and S2. No gallops, murmurs, or rubs. No pulse deficits. Respiratory: Lungs have equal breath sounds bilaterally, clear to auscultation and percussion. No rales, rhonchi or wheezes noted. No increased work of breathing, no retractions or nasal flaring. Skin: Warm, dry with normal turgor. Normal color with no rashes, no lesions, and no evidence of cellulitis. 11:49 Musculoskeletal/extremity: Extremities: grossly normal except: noted in the dorsum of right foot: tenderness, There is no evidence of swelling, noted in the ball of right foot, arch of right foot and heel of right foot: no evidence of swelling, tenderness, patient able to move all right toes FROM, the right foot Sensation intact. Vital Signs: 11:53 BP 126 / 83; Pulse 89; Resp 19; Temp 98.1(TE); Pulse Ox 98% on R/A; Weight 72.57 kg; ss Pain 9/10; 13:04 BP 116 / 81; Pulse 73; Resp 17; Pulse Ox 97% on R/A; tw2 14:29 BP 100 / 55; Pulse 75; Resp 17; Pulse Ox 95% on R/A; Pain 4/10; tw2 MDM: 11:47 Patient medically screened. pm1 12:13 Data reviewed: vital signs. Data interpreted: Pulse oximetry: on room air is 98 %. pm1 Interpretation: normal. 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 09/23 11:49 Order name: Foot Right 3 View XRAY pm1 09/23 14:25 Order name: RAD; Complete Time: 15:28 EDMS 09/23 12:05 Order name: Ice pack; Complete Time: 12:05 tw2 09/23 14:01 Order name: Post-op Orthopedic Shoe; Complete Time: 14:29 pm1 09/23 14:01 Order name: Crutches; Complete Time: 14:29 pm1 Administered Medications: 12:03 Drug: [place] 10 mg-325 mg 1 tabs Route: PO; tw2 13:03 Follow up: Response: No adverse reaction; Pain is decreased; RASS: Drowsy (-1) tw2 Disposition: 09/23/19 13:57 Discharged to Home. Impression: Contusion of right foot. - Condition is Stable. - Discharge Instructions: Foot Contusion, Crutch Use. - Prescriptions for Tylenol- Codeine #3 300-30 mg Oral Tablet - take 2 tablets by ORAL route every 6 hours As needed; 20 tablet. - Work release form, Medication Reconciliation Form, Thank You Letter, Antibiotic Education, Prescription Opioid Use form. - Follow up: Emergency Department; When: As needed; Reason: Worsening of condition. Follow up: Private Physician; When: 2 - 3 days; Reason: Recheck today's complaints, Continuance of care, Re-evaluation by your physician. - Problem is new. - Symptoms have improved. Addendum: 09/25/2019 08:21 Co-signature as Attending Physician, Dmitri Garcia MD I agree with the assessment and c downs plan of care. Signatures: Dispatcher [employer] [facility] Dmitri Garcia MD MD cha Smirch, Shelby RN RN Poli Rubalcava NP INVOICE CODER pm1 Geneva Hurtado RN RN tw2 Corrections: (The following items were deleted from the chart) 09/23 14:30 13:57 09/23/2019 13:57 Discharged to Home. Impression: Contusion of right foot. tw2 Condition is Stable. Forms are Medication Reconciliation Form, Thank You Letter, Antibiotic Education, Prescription Opioid Use. Follow up: Emergency Department; When: As needed; Reason: Worsening of condition. Follow up: Private Physician; When: 2 - 3 days; Reason: Recheck today's complaints, Continuance of care, Re-evaluation by your physician. Problem is new. Symptoms have improved. pm1
--- NOTE | 2019-09-23 13:58 | ER ---
Nurse's Notes [facility] Name: Mirna Allen Age: 38 yrs Sex: Female : 1980 Arrival Date: 09/23/2019 Time: 11:33 Bed 19 Private MD: Diagnosis: Contusion of right foot Presentation: 09/23 11:50 Presenting complaint: Patient states: R foot pain after steel object fell over onto ss foot at work just prior to arrival. No swelling noted. Transition of care: patient was not received from another setting of care. Onset of symptoms was September 23, 2019. Risk Assessment: Do you want to hurt yourself or someone else? Patient reports no desire to harm self or others. Initial Sepsis Screen: Does the patient meet any 2 criteria? No. Patient's initial sepsis screen is negative. Does the patient have a suspected source of infection? No. Patient's initial sepsis screen is negative. Care prior to arrival: None. 11:50 Method Of Arrival: Wheelchair ss 11:50 Acuity: WILLIAM 4 ss Triage Assessment: 11:50 General: Appears in no apparent distress. tw2 13:25 Injury Description: Crush injury. 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 tw2 Historical: - Allergies: 11:53 No Known Allergies; ss - Home Meds: 11:53 None [Active]; ss - PMHx: 11:53 None; ss - PSHx: 11:53 Tubal ligation; ss - Immunization history:: Adult Immunizations up to date. - Coronavirus screen:: The patient has NOT traveled to [place] in the past 14 days. - Social history:: Smoking status: Patient denies any tobacco usage or history of. - Ebola Screening: : Patient denies exposure to infectious person Patient denies travel to an Ebola-affected area in the 21 days before illness onset. Screenin:54 Abuse screen: Denies threats or abuse. Nutritional screening: No deficits noted. tw2 Tuberculosis screening: No symptoms or risk factors identified. Fall Risk None identified. Assessment: 11:50 General: Appears in no apparent distress. slender, well groomed, Behavior is calm, tw2 cooperative, appropriate for age. Pain: Complains of pain in right foot and heel of right foot and arch of right foot and ball of right foot and dorsum of right foot. Neuro: Level of Consciousness is awake, alert, obeys commands, Oriented to person, place, time, situation. Cardiovascular: Patient's skin is warm and dry. Respiratory: Airway is patent Respiratory effort is even, unlabored, Respiratory pattern is regular, symmetrical. GI: No signs and/or symptoms were reported involving the gastrointestinal system. : No signs and/or symptoms were reported regarding the genitourinary system. Musculoskeletal: Circulation, motion, and sensation intact. Swelling present in dorsum of right foot Reports pain in dorsum of right foot. 12:04 Reassessment: xray at bedside at this time. tw2 13:03 Reassessment: Patient appears in no apparent distress at this time. Patient and/or tw2 family updated on plan of care and expected duration. Pain level reassessed. Patient is alert, oriented x 3, equal unlabored respirations, skin warm/dry/pink. Patient states feeling better. 14:29 Reassessment: Patient appears in no apparent distress at this time. Patient and/or tw2 family updated on plan of care and expected duration. Pain level reassessed. Patient is alert, oriented x 3, equal unlabored respirations, skin warm/dry/pink. Patient states feeling better. Vital Signs: 11:53 BP 126 / 83; Pulse 89; Resp 19; Temp 98.1(TE); Pulse Ox 98% on R/A; Weight 72.57 kg; ss Pain 9/10; 13:04 BP 116 / 81; Pulse 73; Resp 17; Pulse Ox 97% on R/A; tw2 14:29 BP 100 / 55; Pulse 75; Resp 17; Pulse Ox 95% on R/A; Pain 4/10; tw2 ED Course: 11:33 Patient arrived in ED. mr 11:46 Poli Alexander, DARSHAN is PHCP. pm1 11:47 Dmitri Garcia MD is Attending Physician. pm1 11:47 Bed in low position. Call light in reach. tw2 11:52 Triage completed. ss 11:53 Geneva Hurtado, CASTRO is Primary Nurse. tw2 11:53 Arm band placed on right wrist. ss 13:59 No provider procedures requiring assistance completed. IV discontinued, intact, tw2 bleeding controlled, No redness/swelling at site. Pressure dressing applied. Administered Medications: 12:03 Drug: [place] 10 mg-325 mg 1 tabs Route: PO; tw2 13:03 Follow up: Response: No adverse reaction; Pain is decreased; RASS: Drowsy (-1) tw2 Outcome: 13:57 Discharge ordered by . pm1 14:29 Discharged to home via wheelchair, with crutches, with significant other. tw2 14:29 Condition: stable 14:29 Discharge instructions given to patient, significant other, Instructed on discharge instructions, follow up and referral plans. no drinking with medication, no driving heavy equipment, medication usage, safety practices, crutch walking, Demonstrated understanding of instructions, follow-up care, medications, crutch walking, ortho shoe Prescriptions given X 1. 14:30 Patient left the ED. tw2 Signatures: Carla Xiao Shelby, RN RN ss Marinas, Patrick, NP ORTHOPAEDIC SURGEON pm1 Geneva Hurtado RN RN tw2
[2019-09-23 14:38] VITALS: TEMP 98.1
[2019-09-23 14:40] VITALS: BP 100/55; O2SAT 95
== END 2019-09-23 14:30 | disposition home or self-care (01) ==
LOC: ER 11:29
DX: S90.31XA Contusion of right foot, initial encounter (principal); W20.8XXA Other cause of strike by thrown, projected or falling object, initial encounter; Y93.89 Activity, other specified; Y92.89 Other specified places as the place of occurrence of the external cause; Y99.0 Civilian activity done for income or pay
CPT/HCPCS: 99283

== ENCOUNTER 2020-02-29 23:35 | Emergency (ER) | payer OTHER, SELFPAY ==
[2020-03-01] MEDS ORDERED: BUPIVACAINE 0.5% PF 10 ML VIAL ONE (00:03)
[2020-03-01] MEDS ORDERED: LIDOCAINE 1% 20 ML MDV ONE (00:03)
--- NOTE | 2020-03-01 01:06 | EDPHYS ---
Physician Documentation [facility] Name: Mirna Allen Age: 39 yrs Sex: Female : 1980 Arrival Date: 02/29/2020 Time: 23:38 Bed 17 Private MD: ED Physician Manuel Gaines HPI: 03/01 00:00 This 39 yrs old Female presents to ER via Ambulatory with complaints of FINGER cp SWELLING, NUMBNESS IN FINGER. 00:00 The patient or guardian reports pain, swelling, tenderness. The complaints affect the cp dorsum and ulna side of nail left index finger. Context: resulted from an unknown cause. 00:00 Onset: The symptoms/episode began/occurred this morning. 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 - Social history:: Smoking status: Patient reports the use of cigarette tobacco products, smokes one pack cigarettes per day. ROS: 03/01 00:05 MS/extremity: Positive for pain, swelling, tenderness, of the distal phalanx left index cp finger, Negative for injury or acute deformity, decreased range of motion. 00:05 Constitutional: Negative for body aches, chills, fever. cp 00:05 All other systems are negative. Exam: 00:10 Head/Face: Normocephalic, atraumatic. cp 00:10 Constitutional: The patient appears in no acute distress, alert, awake, non-toxic, well developed, well nourished. 00:10 Skin: abscess, that is small, of the dorsum and ulna side of nail left index finger, cp with fluctuance, that is mild, cellulitis, that is minimal, on the distal phalanx left index finger. 00:10 Neuro: Motor: is normal, Sensation: pin prick testing is normal. Vital Signs: 02/28 23:46 BP 133 / 87; Pulse 73; Resp 17; Temp 97.8; Pulse Ox 100% on R/A; Weight 72.57 kg; vc Height 4 ft. 11 in. (149.86 cm); Pain 8/10; 03/01 00:00 BP 121 / 94; Pulse 72; Resp 17; Pulse Ox 100% ; vc 01:00 BP 114 / 72; Pulse 71; Resp 18; Pulse Ox 100% on R/A; vc 02/28 23:46 Body Mass Index 32.32 (72.57 kg, 149.86 cm) Procedures: 01:10 I \T\ D: Incision and drainage was performed for an abscess of the dorsum and ulna side cp of nail left index finger Prepped with Betadine, Anesthetized with 5 ccs of 50/50 mixture 1% lidocaine and 0.5% marcaine. Incised with 18 gauge needle. Drained small amount purulent fluid. Dressing: sterile 4x4 gauze, the patient tolerated the procedure well. MDM: 02/28 23:44 Patient medically screened. cp 03/01 01:03 Differential diagnosis: open fracture, closed fracture, contusion, cellulitis, felon, cp abscess. Data reviewed: vital signs, nurses notes, and as a result, I will discharge patient. Response to treatment: the patient's symptoms have markedly improved after treatment. Administered Medications: 00:39 Drug: Lidocaine (1 %) 5 ml {Note: Administered by provider.} Volume: 20 ml; Route: wh Infiltration; 00:39 Drug: Marcaine (0.5 %) 5 ml {Note: Administered by provider.} Volume: 10 ml; Route: wh Infiltration; 01:24 Drug: Bactrim (160 mg-800 mg (DS) 1 tablet Route: PO; 01:26 Follow up: Response: No adverse reaction 01:25 Drug: Ibuprofen 800 mg Route: PO; 01:26 Follow up: Response: No adverse reaction Disposition: 01:30 Chart complete. cp 04:37 Co-signature as Attending Physician, Manuel Gaines MD. [email or web address] Disposition: 03/01/20 01:05 Discharged to Home. Impression: Cutaneous abscess of left upper limb - left index finger. - Condition is Stable. - Discharge Instructions: Paronychia. - Prescriptions for Bactrim DS 800- 160 mg Oral Tablet - take 1 tablet by ORAL route every 12 hours for 7 days; 14 tablet. Naprosyn 500 mg Oral Tablet - take 1 tablet by ORAL route 2 times per day take with food; 20 tablet. - Medication Reconciliation Form, Thank You Letter, Antibiotic Education, Prescription Opioid Use form. - Follow up: Private Physician; When: 1 - 2 days; Reason: Worsening of condition. - Problem is new. - Symptoms have improved. Signatures: Dmitri Slaughter PA PA cp Habalo, Winsy wh Cal[place]ote, Vanessa, RN RN Manuel Brown MD MD [email or web address] Corrections: (The following items were deleted from the chart) 01:27 01:05 03/01/2020 01:05 Discharged to Home. Impression: Cutaneous abscess of left upper wh limb - left index finger. Condition is Stable. Forms are Medication Reconciliation Form, Thank You Letter, Antibiotic Education, Prescription Opioid Use. Follow up: Private Physician; When: 1 - 2 days; Reason: Worsening of condition. Problem is new. Symptoms have improved. cp
--- NOTE | 2020-03-01 01:06 | ER ---
Nurse's Notes [facility] Name: Mirna Allen Age: 39 yrs Sex: Female : 1980 Arrival Date: 02/29/2020 Time: 23:38 Bed 17 Private MD: Diagnosis: Cutaneous abscess of left upper limb-left index finger Presentation: 02/28 23:46 Chief complaint: Patient states: "I woke up this morning and my left finger hurt, it's vc been getting worse and worse. I told my I feel like it's going to explode, not bust but explode. It feels tight, numb and it's throbbing.". Coronavirus screen: Patient denies a cough. Patient denies shortness of breath or difficulty breathing. Patient denies measured and/or subjective temperature greater than 100.4F prior to today's visit. Patient denies travel on a cruise ship or to a country the [facility] currently lists as an affected area. Patient denies contact with known and/or suspected case of COVID-19. Proceed with normal triage. Patient instructed to continue to wear a mask when interacting with others. Patient moved to private room, placed in contact and droplet isolation with eye protection until further assessment. Ebola Screen: No symptoms or risks identified at this time. Initial Sepsis Screen: Does the patient meet any 2 criteria? No. Patient's initial sepsis screen is negative. Does the patient have a suspected source of infection? Yes: Skin breakdown/wound. Risk Assessment: Do you want to hurt yourself or someone else? Patient reports no desire to harm self or others. Onset of symptoms was February 29, 2020. Care prior to arrival: None. 23:46 Method Of Arrival: Ambulatory vc 23:46 Acuity: WILLIAM 3 vc Triage Assessment: 23:50 General: Appears in no apparent distress. comfortable, Behavior is calm, cooperative, vc appropriate for age. Pain: Complains of pain in left index fingernail Pain does not radiate. Pain currently is 8 out of 10 on a pain scale. Quality of pain is described as throbbing, numb, "Tight" Pain began suddenly, Is continuous. 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 - Social history:: Smoking status: Patient reports the use of cigarette tobacco products, smokes one pack cigarettes per day. Screenin:49 Abuse screen: Denies threats or abuse. Nutritional screening: No deficits noted. vc Tuberculosis screening: No symptoms or risk factors identified. Fall Risk None identified. Assessment: 03/01 00:00 General: Appears in no apparent distress. comfortable, Behavior is calm, cooperative, vc appropriate for age. Pain: Complains of pain in left index finger. Neuro: Level of Consciousness is awake, alert, obeys commands, Oriented to person, place, time, situation, Appropriate for age. Cardiovascular: Capillary refill < 3 seconds Patient's skin is warm and dry. Respiratory: Airway is patent Respiratory effort is even, unlabored, Respiratory pattern is regular, symmetrical. GI: No signs and/or symptoms were reported involving the gastrointestinal system. : No signs and/or symptoms were reported regarding the genitourinary system. Derm: Swelling to left index finger to lateral sides of tip. 01:00 Reassessment: Patient appears in no apparent distress at this time. Patient and/or vc family updated on plan of care and expected duration. Pain level reassessed. Patient is alert, oriented x 3, equal unlabored respirations, skin warm/dry/pink. Patient states symptoms have improved. Vital Signs: 02/28 23:46 BP 133 / 87; Pulse 73; Resp 17; Temp 97.8; Pulse Ox 100% on R/A; Weight 72.57 kg; vc Height 4 ft. 11 in. (149.86 cm); Pain 8/10; 03/01 00:00 BP 121 / 94; Pulse 72; Resp 17; Pulse Ox 100% ; vc 01:00 BP 114 / 72; Pulse 71; Resp 18; Pulse Ox 100% on R/A; vc 02/28 23:46 Body Mass Index 32.32 (72.57 kg, 149.86 cm) vc ED Course: 02/28 23:38 Patient arrived in ED. cf2 23:40 Dmitri Slaughter PA is PHCP. cp 23:40 Manuel Gaines MD is Attending Physician. cp 23:49 Triage completed. vc 23:49 Arm band placed on. vc 23:49 Patient has correct armband on for positive identification. Bed in low position. Call light in reach. Pulse ox on. NIBP on. 03/01 00:01 Sanam Coffey is Primary Nurse. 01:26 No provider procedures requiring assistance completed. Patient did not have IV access during this emergency room visit. Administered Medications: 00:39 Drug: Lidocaine (1 %) 5 ml {Note: Administered by provider.} Volume: 20 ml; Route: Infiltration; 00:39 Drug: Marcaine (0.5 %) 5 ml {Note: Administered by provider.} Volume: 10 ml; Route: Infiltration; :24 Drug: Bactrim (160 mg-800 mg (DS) 1 tablet Route: PO; 01:26 Follow up: Response: No adverse reaction 01:25 Drug: Ibuprofen 800 mg Route: PO; 01:26 Follow up: Response: No adverse reaction Outcome: 01:05 Discharge ordered by MD. 01:26 Discharged to home ambulatory. 01:26 Condition: stable 01:26 Discharge instructions given to patient, Instructed on discharge instructions, follow up and referral plans. POC Demonstrated understanding of instructions, follow-up care, medications, POC Prescriptions given X 2. 01:27 Patient left the ED. Signatures: Dmitri Slaughter PA PA cp Habalo, Winsy Og Davis Vanessa, RN RN vc
[2020-03-01] MEDS ORDERED: SMZ./TMP. 800/160 MG TABLET ONE (01:27)
[2020-03-01] MEDS ORDERED: IBUPROFEN 400 MG TAB ONE (01:27)
[2020-03-01 01:33] VITALS: TEMP 97.8; O2SAT 100
[2020-03-01 01:36] VITALS: BP 114/72
== END 2020-03-01 01:27 | disposition home or self-care (01) ==
LOC: ER 23:35
PROC: 0H9GXZZ Drainage of Left Hand Skin, External Approach (ICD-10-PCS; principal; 2020-03-01)
DX: L02.512 Cutaneous abscess of left hand (principal); F17.210 Nicotine dependence, cigarettes, uncomplicated
CPT/HCPCS: 99283

== ENCOUNTER 2021-05-28 04:31 | Emergency (ER) | payer SELFPAY ==
[2021-05-28 05:48] LABS: Urine Blood 3+ (Negative); Urine Glucose Negative (Negative); Urine Protein 1+ (Negative); Urine Specific Gravity >=1.030 (1.005-1.030); Urine pH 5.5 (5.0-7.0)
[2021-05-28 06:02] LABS: Urine Specific Gravity/Preg >1.030 (1.005-1.030)
[2021-05-28 06:48] LABS: Absolute Lymphocytes (CBC) 1.6 K/uL (0.7-4.9); Basophils % 0.4 % (0-1.3); Hematocrit 40.7 % (36.0-45.0); Lymphocytes % 23.7 % (15.3-44.8); MPV 6.9 fL (7.6-11.3); RBC Red Blood Cell Count 4.11 M/uL (3.86-4.86)
[2021-05-28 07:17] LABS: ALT/SGPT 64 U/L (12-78); AST/SGOT 25 U/L (15-37); Alkaline Phosphatase 92 U/L (45-117); BUN Blood Urea Nitrogen 14 mg/dL (7-18); Bicarbonate 25 mmol/L (21-32); Bilirubin Direct < 0.1 mg/dL (0-0.2); Bilirubin Total 0.3 mg/dL (0.2-1.0); Glucose Level 129 mg/dL (74-106); Lipase 34 U/L (73-393); Potassium 3.7 mmol/L (3.5-5.1); Protein, Total 7.9 g/dL (6.4-8.2); Sodium Level 140 mmol/L (136-145)
--- NOTE | 2021-05-28 08:08 | RAD REPORT ---
EXAM DESCRIPTION: CT - Abdomen Pelvis W Contrast - 05/28/2021 7:56 am CLINICAL HISTORY: Abdominal pain COMPARISON: none. TECHNIQUE: Computed axial tomography of the abdomen pelvis was obtained. 100 cc Isovue-300 was admin istered intravenously. Oral contrast was not requested which limits evaluation of bowel. All CT scans are performed using dose optimization technique as appropriate and may include automated exposure control or mA/KV adjustment according to patient size. FINDINGS: Fatty liver. Spleen, pancreas and adrenals unremarkable. Pancreas unremarkable Small left renal cyst. Mild right hydronephrosis. 3 millimeter calculus mid right ureter. There is no evidence of diverticulitis. Nabothian cysts suspected within the cervix. Small umbilical hernia Normal appendix. No evidence of diverticulitis IMPRESSION: 3 millimeter calculus mid right ureter resulting in mild right hydronephrosis
[2021-05-28] MEDS ORDERED: MORPHINE 4 MG/ML SYR ONE (08:09)
[2021-05-28] MEDS ORDERED: ONDANSETRON 4 MG/2 ML VIAL ONE (08:09)
--- NOTE | 2021-05-28 08:27 | ER ---
Nurse's Notes [facility] Name: Mirna Allen Age: 40 yrs Sex: Female : 1980 Arrival Date: 05/28/2021 Time: 04:35 Bed 26 Private MD: Diagnosis: Hydronephrosis with renal and ureteral calculous obstruction Presentation: 05/28 04:49 Chief complaint: Patient states: WOKE UP AT 0200 RT FLANK PAIN THAT RADIATES TO RLQ AND sj1 BACK. REPORTS NAUSEA WITH VOMITING X 1 EPISODE. DENIES DIARRHEA AND URINARY SYMPTOMS. HX OF KIDNEY STONES. Coronavirus screen: Vaccine status: Patient reports receiving the 2nd dose of the covid vaccine. Ebola Screen: No symptoms or risks identified at this time. Initial Sepsis Screen: Does the patient meet any 2 criteria? No. Patient's initial sepsis screen is negative. Does the patient have a suspected source of infection? No. Patient's initial sepsis screen is negative. Risk Assessment: Do you want to hurt yourself or someone else? Patient reports no desire to harm self or others. Onset of symptoms was May 28, 2021 at 02:00. 04:49 Method Of Arrival: Wheelchair sj1 04:49 Acuity: WILLIAM 3 sj1 Triage Assessment: 04:52 General: Appears in no apparent distress. Behavior is cooperative, appropriate for age. sj1 Pain: Complains of pain in RT FLANK Pain radiates to BACK AND RLQ. EENT: No signs and/or symptoms were reported regarding the EENT system. Neuro: No deficits noted. Cardiovascular: No deficits noted. Respiratory: No deficits noted. GI: Reports lower abdominal pain, nausea, vomiting. : Reports urinary frequency, UNABLE TO VOID. Musculoskeletal: Reports pain in back. 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 - Social history:: Smoking status: Patient reports the use of cigarette tobacco products, smokes one pack cigarettes per day. Patient uses alcohol, but reports only rare drinking. Patient/guardian denies using street drugs. Screenin:55 Abuse screen: Denies threats or abuse. Denies injuries from another. Nutritional 1 screening: No deficits noted. Tuberculosis screening: No symptoms or risk factors identified. Fall Risk None identified. Assessment: 05:01 General: Appears distressed, Behavior is cooperative, anxious. cc4 05:01 Pain: Complains of pain in back. cc4 05:01 Pain: Radiates from right flank to right quad of abdomen/back. Pain currently is 10 out cc4 of 10 on a pain scale. Quality of pain is described as sharp, Pain began 3 hours ago. Is continuous. 05:01 Neuro: No deficits noted. Level of Consciousness is awake, alert, obeys commands, cc4 Oriented to person, place, time, situation. 05:01 Cardiovascular: No deficits noted. Cardiovascular: Denies chest pain. Respiratory: No cc4 deficits noted. Airway is patent. GI: No deficits noted. Abdomen is obese, soft/tender right quad of abd. Bowel sounds present X 4 quads. : Reports pain in right flank(s), lower quadrant(s) in lower back Pain is 10 out of 10 on a pain scale. urgency, since 0200. EENT: No deficits noted. No signs and/or symptoms were reported regarding the EENT system. Derm: No deficits noted. No signs and/or symptoms reported regarding the dermatologic system. Musculoskeletal: No deficits noted. Capillary refill < 3 seconds, Range of motion: Slow but equal of BLE. Vital Signs: 04:49 BP 120 / 83; Pulse 79; Resp 18; Temp 98.2(O); Pulse Ox 100% on R/A; Weight 72.57 kg [facility] (R); Height 4 ft. 11 in. (149.86 cm) (R); Pain 10/10; 05:01 BP 126 / 83; Pulse 75; Resp 22; Pulse Ox 100% on R/A; cc4 06:25 BP 111 / 74; Pulse 87; Resp 20; Pulse Ox 100% on R/A; cc4 08:22 BP 100 / 64; Pulse 80; Resp 18; Pulse Ox 100% on R/A; ch5 04:49 Body Mass Index 32.32 (72.57 kg, 149.86 cm) [facility] ED Course: 04:35 Patient arrived in ED. bp1 04:52 Triage completed. sj1 04:52 Arm band placed on left wrist. sj1 04:55 Patient has correct armband on for positive identification. sj1 04:57 Manuel Gaines MD is Attending Physician. mh7 05:09 Yenni Galvan, RN is Primary Nurse. cc4 06:08 Brian Elder PA is PHCP. jr8 06:35 CT Abd/Pelvis - IV Contrast Only Sent. cc4 06:35 Basic Metabolic Panel Sent. cc4 06:35 CBC with Diff Sent. cc4 06:35 Hepatic Function Sent. cc4 06:35 Lipase Sent. cc4 07:56 CT Abd/Pelvis - IV Contrast Only In Process Unspecified. EDMS 08:26 Marques Del Real MD is Referral Physician. jr8 Administered Medications: 07:51 Drug: morphine 4 mg Route: IVP; Site: left antecubital; ch5 08:36 Follow up: Response: Pain is decreased ch5 07:52 Drug: Zofran (Ondansetron) 4 mg Route: IVP; Site: right antecubital; ch5 08:37 Follow up: Response: Pain is decreased ch5 08:26 Drug: Ketorolac 15 mg Route: IVP; Site: right antecubital; ch5 08:37 Follow up: Response: No adverse reaction ch5 Outcome: 08:26 Discharge ordered by . jr8 08:46 Patient left the ED. ch5 Signatures: Dispatcher [employer] EDMS Brian Elder PA PA jr8 Tonya Odom bp1 Manuel Gaines MD MD 7 Alejo Glover, CASTRO RN ch5 Yenni Galvan, RN RN cc4 Michelle Miranda RN RN sj1
--- NOTE | 2021-05-28 08:27 | EDPHYS ---
Physician Documentation [facility] Name: Mirna Allen Age: 40 yrs Sex: Female : 1980 Arrival Date: 05/28/2021 Time: 04:35 Bed 26 Private MD: ED Physician Manuel Gaines HPI: 05/28 08:23 This 40 yrs old Female presents to ER via Wheelchair with complaints of Back jr8 Pain, Flank Pain, Abdominal Pain. 08:23 Onset: The symptoms/episode began/occurred acutely, today. Severity of symptoms: At jr8 their worst the symptoms were moderate, in the emergency department the symptoms are unchanged. The patient has not experienced similar symptoms in the past. The patient has not recently seen a physician. This is a [id number]-year-old female that had sudden onset of right flank pain with radiation to the abdomen that started this morning.. 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 - Social history:: Smoking status: Patient reports the use of cigarette tobacco products, smokes one pack cigarettes per day. Patient uses alcohol, but reports only rare drinking. Patient/guardian denies using street drugs. ROS: 08:23 Eyes: Negative for injury, pain, redness, and discharge, ENT: Negative for injury, jr8 pain, and discharge, Neck: Negative for injury, pain, and swelling, Cardiovascular: Negative for chest pain, palpitations, and edema, Respiratory: Negative for shortness of breath, cough, wheezing, and pleuritic chest pain, MS/Extremity: Negative for injury and deformity, Skin: Negative for injury, rash, and discoloration, Neuro: Negative for headache, weakness, numbness, tingling, and seizure. 08:23 Abdomen/GI: Positive for abdominal pain, Negative for nausea, vomiting, and diarrhea. 08:23 Back: Positive for flank pain, on the right. Exam: 08:23 Constitutional: This is a well developed, well nourished patient who is awake, alert, jr8 and in no acute distress. Cardiovascular: Regular rate and rhythm with a normal S1 and S2. No gallops, murmurs, or rubs. Normal PMI, no JVD. No pulse deficits. Respiratory: Lungs have equal breath sounds bilaterally, clear to auscultation and percussion. No rales, rhonchi or wheezes noted. No increased work of breathing, no retractions or nasal flaring. Abdomen/GI: Soft, non-tender, with normal bowel sounds. No distension or tympany. No guarding or rebound. No evidence of tenderness throughout. Skin: Warm, dry with normal turgor. Normal color with no rashes, no lesions, and no evidence of cellulitis. MS/ Extremity: Pulses equal, no cyanosis. Neurovascular intact. Full, normal range of motion. Neuro: Awake and alert, GCS 15, oriented to person, place, time, and situation. Cranial nerves II-XII grossly intact. Motor strength 5/5 in all extremities. Sensory grossly intact. Cerebellar exam normal. Normal gait. 08:23 Back: pain, that is moderate, of the right flank, ROM is normal, CVA tenderness, that is mild, is noted on the right, vertebral tenderness, is not appreciated. Vital Signs: 04:49 BP 120 / 83; Pulse 79; Resp 18; Temp 98.2(O); Pulse Ox 100% on R/A; Weight 72.57 kg [facility] (R); Height 4 ft. 11 in. (149.86 cm) (R); Pain 10/10; 05:01 BP 126 / 83; Pulse 75; Resp 22; Pulse Ox 100% on R/A; cc4 06:25 BP 111 / 74; Pulse 87; Resp 20; Pulse Ox 100% on R/A; cc4 08:22 BP 100 / 64; Pulse 80; Resp 18; Pulse Ox 100% on R/A; ch5 04:49 Body Mass Index 32.32 (72.57 kg, 149.86 cm) [facility] MDM: 06:08 Patient medically screened. jr8 08:23 Data reviewed: vital signs, nurses notes, lab test result(s), radiologic studies, CT jr8 scan. Data interpreted: Pulse oximetry: on room air is 100 %. Interpretation: normal. Counseling: I had a detailed discussion with the patient and/or guardian regarding: the historical points, exam findings, and any diagnostic results supporting the discharge/admit diagnosis, lab results, radiology results, the need for outpatient follow up, a urologist, to return to the emergency department if symptoms worsen or persist or if there are any questions or concerns that arise at home. ED course: Discussed with patient has positive nitrate and leukocyte in urine. We will put her on antibiotics so she does not become septic. Explained to her that she has a 3 mm stone right side. Should be able to be passed but if she were to have fever, increased pain, vomiting that would not allow her to keep her meds down that she needs to come back to the emergency room for further evaluation and possible stent placement with urology. Otherwise would like her to follow-up with urologist in the next week. Patient go with a plan at this time.. 05/28 05:48 Order name: Urine Dipstick-Ancillary; Complete Time: 06:09 EDMS 05/28 05:51 Order name: Urine --Ancillary (enter results); Complete Time: 06:09 tt3 05/28 06:04 Order name: Basic Metabolic Panel; Complete Time: 07:21 em 05/28 06:04 Order name: CBC with Diff; Complete Time: 07:04 em 05/28 06:04 Order name: Hepatic Function; Complete Time: 07:21 em 05/28 06:04 Order name: Lipase; Complete Time: 07:21 em 05/28 05:49 Order name: Urine Test (obtain specimen); Complete Time: 05:50 cc4 05/28 06:04 Order name: IV Saline Lock; Complete Time: 06:25 em 05/28 06:04 Order name: Labs collected and sent; Complete Time: 06:24 em 05/28 06:24 Order name: CT Abd/Pelvis - IV Contrast Only; Complete Time: 08:19 jr8 Administered Medications: 07:51 Drug: morphine 4 mg Route: IVP; Site: left antecubital; ch5 08:36 Follow up: Response: Pain is decreased ch5 07:52 Drug: Zofran (Ondansetron) 4 mg Route: IVP; Site: right antecubital; ch5 08:37 Follow up: Response: Pain is decreased ch5 08:26 Drug: Ketorolac 15 mg Route: IVP; Site: right antecubital; ch5 08:37 Follow up: Response: No adverse reaction ch5 Disposition Summary: 05/28/21 08:26 Discharge Ordered Location: Home jr8 Problem: new jr8 Symptoms: have improved jr8 Condition: Stable jr8 Diagnosis - Hydronephrosis with renal and ureteral calculous obstruction jr8 Followup: jr8 - With: Marques Del Real MD - When: 1 week - Reason: Recheck today's complaints, Continuance of care, Re-evaluation by your physician Discharge Instructions: - Discharge Summary Sheet jr8 - Kidney Stones jr8 Forms: - Medication Reconciliation Form jr8 - Thank You Letter jr8 - Antibiotic Education jr8 - Prescription Opioid Use jr8 - Work release form ch5 - Family Work Release 5 Prescriptions: - tamsulosin 0.4 mg Oral capsule - take 1 capsule by ORAL route At bedtime; 16 capsule; Refills: 0, Product jr8 Selection Permitted - Cipro 500 mg Oral Tablet - take 1 tablet by ORAL route every 12 hours for 10 days; 20 tablet; Refills: 0, jr8 Product Selection Permitted - Ibuprofen 800 mg Oral Tablet - take 1 tablet by ORAL route every 12 hours As needed take with food; 20 tablet; jr8 Refills: 0, Product Selection Permitted - Zofran 4 mg Oral Tablet - take 1 tablet by ORAL route every 12 hours As needed; 20 tablet; Refills: 0, jr8 Product Selection Permitted Signatures: Dispatcher [employer] Angel Bay RN RN Brian Parish PA PA jr8 Alejo Glover RN RN ch5 Yenni Galvan RN RN cc4 Michelle Miranda RN RN sj1
[2021-05-28] MEDS ORDERED: KETOROLAC 30 MG/ML INJ ONE (08:49)
[2021-05-28 09:01] VITALS: TEMP 98.2; O2SAT 100
[2021-05-28 09:06] VITALS: BP 100/64
== END 2021-05-28 08:46 | disposition home or self-care (01) ==
LOC: ER 04:31
DX: N13.2 Hydronephrosis with renal and ureteral calculous obstruction (principal); F17.210 Nicotine dependence, cigarettes, uncomplicated
CPT/HCPCS: 36415; 74177; 80048; 80076; 81003; 81025; 83690; 85025; J2405; Q9967

== ENCOUNTER 2021-11-10 13:55 | Inpatient (IN) | payer SELFPAY ==
[2021-11-10] MEDS ORDERED: ALTEPLASE 100 ML IV ONE (14:14)
--- NOTE | 2021-11-10 14:20 | RAD REPORT ---
EXAM DESCRIPTION: CT - Ct Stroke Brain Wo Cont - 11/10/2021 2:14 pm CLINICAL HISTORY: Numbness COMPARISON: none TECHNIQUE: Computed axial tomography of the head was obtained. All CT scans are performed using dose optimization technique as appropriate and may include automated exposure control or mA/KV adjustment according to patient size. FINDINGS: An intracranial bleed is not seen . The ventricles are normal in caliber. No extra-axial fluid collection is noted. Fluid within the sinuses/ mastoids is not seen. IMPRESSION: No acute intracranial abnormality is seen. If patient's symptoms persist MRI of the bra in would be recommended. Dr Tidwell of the emergency room was notified at 2:14 p.m. November 10, 2021
[2021-11-10 14:35] LABS: Absolute Lymphocytes (CBC) 2.5 K/uL (0.7-4.9); Hematocrit 37.1 % (36.0-45.0); Lymphocytes % 32.8 % (15.3-44.8); MPV 6.4 fL (7.6-11.3); RBC Red Blood Cell Count 3.83 M/uL (3.86-4.86)
[2021-11-10 14:45] LABS: Protime INR 1.04
[2021-11-10 14:49] LABS: BUN Blood Urea Nitrogen 14 mg/dL (7-18); Bicarbonate 26 mmol/L (21-32); Glucose Level 87 mg/dL (74-106); Potassium 3.3 mmol/L (3.5-5.1); Sodium Level 139 mmol/L (136-145)
--- NOTE | 2021-11-10 16:23 | RAD REPORT ---
EXAM DESCRIPTION: Julito Single View11/10/2021 3:56 pm CLINICAL HISTORY: Malaise/ numbness COMPARISON: none FINDINGS: The lungs appear clear of acute infiltrate. The heart is normal size IMPRESSION: No acute abnormalities displayed
--- NOTE | 2021-11-10 16:38 | RAD REPORT ---
EXAM DESCRIPTION: CTHead angio11/10/2021 4:24 pm CLINICAL HISTORY: cva/ numbness COMPARISON: None TECHNIQUE: CT angiogram of the head was obtained. 3D MIPS reconstruction performed. All CT scans are performed using dose optimization technique as appropriate and may include automated exposure control or mA/KV adjustment according to patient size. FINDINGS: The basilar, internal carotid, anterior cerebral, middle cerebral and posterior cerebral a rteries are normal caliber. An aneurysm is not seen. A significant stenosis is not noted. IMPRESSION: No acute abnormality is displayed
--- NOTE | 2021-11-10 16:46 | ER ---
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 Code stroke called overhead. Coronavirus screen: Vaccine status: Patient reports receiving the 1st dose of the Covid vaccine. Ebola Screen: No symptoms or risks identified at this time. Initial Sepsis Screen: Does the patient meet any 2 criteria? No. Patient's initial sepsis screen is negative. Does the patient have a suspected source of infection? No. Patient's initial sepsis screen is negative. Risk Assessment: Do you want to hurt yourself or someone else? Patient reports no desire to harm self or others. 14:16 Method Of Arrival: Ambulatory 14:16 Acuity: WILLIAM 2 ph 14:18 Onset of symptoms was November 10, 2021 at 13:00. ph Triage Assessment: 14:48 General: Appears in no apparent distress. Behavior is calm, cooperative. 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 - Social history:: Smoking status: Patient reports the use of cigarette tobacco products, smokes one pack cigarettes per day. - Family history:: not pertinent. - Hospitalizations: : No recent hospitalization is reported. Screenin:47 Abuse screen: Denies threats or abuse. Denies injuries from another. Nutritional downs screening: No deficits noted. Tuberculosis screening: No symptoms or risk factors identified. Fall Risk IV access (20 points). Assessment: 14:04 Reassessment: Code stroke called overhead, pt taken to CT via wheelchair by triage ph nurse. 14:46 Pain: Denies pain. 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 19:07 General: Appears in no apparent distress. Behavior is cooperative. Neuro: Level of sm5 Consciousness is awake, alert, obeys commands, Oriented to person, place, time, situation, Crap Game Box Person are equal bilaterally Moves all extremities. Full function Speech is normal, Facial symmetry appears normal, Intact. Cardiovascular: No deficits noted. Capillary refill < 3 seconds Patient's skin is warm and dry. Respiratory: No deficits noted. Airway is patent Trachea midline Respiratory effort is even, unlabored. GI:. 20:56 Reassessment: attempted report to floor, nurse unavailable. [facility] Vital Signs: 14:10 BP 149 / 98; Pulse 83; Resp 19; Pulse Ox 98% ; ww 14:16 BP 141 / 98; Pulse 82; Resp 18; Temp 98.3; Pulse Ox 98% on R/A; Weight 65.77 kg; Height ph 4 ft. 11 in. 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 mr 14:04 Fortino Tidwell MD is Attending Physician. rn 14:16 CT Stroke Brain w/o Contrast In Process Unspecified. EDMS 14:17 Triage completed. ph 14:17 Inserted saline lock: 20 gauge in right antecubital area, using aseptic technique. ww Blood collected. 14:18 Arm band placed on Patient placed in an exam room. ph 14:24 Inserted saline lock: 18 gauge in left antecubital area, using aseptic technique. ww 14:26 Patient has correct armband on for positive identification. Bed in low position. Call ww light in reach. Side rails up X 1. Adult w/ patient. hat presser on. Pulse ox on. NIBP on. 14:27 EKG done. ww 14:29 EKG done, by ED staff, reviewed by Fortino Tidwell MD. mbCandelaria 14:43 Shandra Mercado, RN is Primary Nurse. downs 14:48 Inserted. downs 14:49 No provider procedures requiring assistance completed. downs 15:56 X-ray completed. Portable x-ray completed in exam room. Patient tolerated procedure mh1 well. 15:57 Stroke CXR 1 View In Process Unspecified. EDMS 16:26 CT Head Angio In Process Unspecified. EDMS 16:44 Darrel Clark is Hospitalizing Provider. rn 19:19 Primary Nurse role handed off by Shandra Mercado, CASTRO mw2 19:33 May Arita, CASTRO is Primary Nurse. [facility] 21:46 Patient admitted, IV remains in place. [facility] Administered Medications: 14:43 Drug: ACTIvase (alteplase) {Co-Signature: roz (Jen Davies RN).} Route: IV downs Thrombolytics; Rate: calculated rate; Infused Over: 60 mins; 15:21 Follow up: Response: No adverse reaction downs 16:51 Follow up: Response: No adverse reaction downs 16:51 Follow up: Response: No adverse reaction downs Outcome: 16:45 Decision to Hospitalize by Provider. rn 21:46 Admitted to ICU accompanied by nurse, via stretcher, with chart, Report called to Patience escalante 21:46 Condition: stable 21:46 Instructed on the need for admit. 21:46 [address] ED[address] [facility] NIH Stroke Scale - NIH Stroke Score Date: 11/10/2021 Time: 14:22 Total Score = 7 1a. Level of Consciousness (LOC) - 0(Alert) 1b. Level of Consciousness (LOC) (Month \T\ Age) - 0(Both) 1c. LOC Commands (Open \T\ Closes Eyes/Stave Grader) - 0(Both) 2. Best Gaze (Lateral Gaze Paresis) - 0(Normal) 3. Visual Field Loss - 0(No visual loss) 4. Facial Palsy - 2(Partial paralysis) 5a. Left Arm: Motor (10-second hold) - 2(Drift, some effort against gravity) 5b. Right Arm: Motor (10-second hold) - 0(No drift) 6a. Left Leg: Motor (5-second hold - always test supine) - 2(Drift, some effort against gravity) 6b. Right Leg: Motor (5-second hold - always test supine) - 0(No drift) 7. Limb Ataxia (finger/nose \T\ heel/okeefe - test with eyes open) - 0(Absent) 8. Sensory Loss (pinprick arms/legs/face) - 1(Mild to moderate loss) 9. Best Language: Aphasia (description/naming/reading) - 0(No aphasia) 10. Dysarthria (speech clarity - read or repeat words) - 0(Normal) 11. Extinction and Inattention (visual/tactile/auditory/spatial/personal) - 0(No abnormality) Initials: rn Signatures: Dispatcher [employer] FLORAMS Xiao Carla CasillasNikki 1 Fortino Tidwell MD MD rn Hall, Patricia, RN RN Bao Baldwin [facility] Carla Vines 7 May Arita RN RN 5 Jen Davies RN RN ww Au-StagerShandra RN RN downs Jen courtney
--- NOTE | 2021-11-10 16:46 | EDPHYS ---
Physician Documentation [facility] Name: Mirna Allen Age: 40 yrs Sex: Female : 1980 Arrival Date: 11/10/2021 Time: 14:00 Bed 17 Private MD: ED Physician Fortino Tidwell HPI: 11/10 15:24 This 40 yrs old Female presents to ER via Ambulatory with complaints of rn Swelling Of Tongue, Numbness Of Face, Numbness Of Arm. 15:24 The patient's problem is reported as a facial droop, on left, paresthesias, in left rn upper extremity, in left lower extremity, in left side of face, weakness, in the left upper extremity, in the left lower extremity, in the left side of face. Onset: The symptoms/episode began/occurred 1 hour(s) ago. The symptoms are alleviated by nothing. The symptoms are aggravated by nothing. Associated signs and symptoms: Pertinent positives: headache, Pertinent negatives: abdominal pain, chest pain, seizure, vomiting. Severity of symptoms: At their worst the symptoms were moderate in the emergency department the symptoms are unchanged. The patient has not experienced similar symptoms in the past. The patient has not recently seen a physician. Pt states 1 hour prior to arrival, began with left sided weakness and numbness, + left facial droop, was at work, entirely normal prior to episode. No trauma. Has never happened before. . 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 - Social history:: Smoking status: Patient reports the use of cigarette tobacco products, smokes one pack cigarettes per day. - Family history:: not pertinent. - Hospitalizations: : No recent hospitalization is reported. ROS: 15:24 Constitutional: Negative for fever, chills, and weight loss, Eyes: Negative for injury, rn pain, redness, and discharge, Neck: Negative for injury, pain, and swelling, Cardiovascular: Negative for chest pain, palpitations, and edema, Respiratory: Negative for shortness of breath, cough, wheezing, and pleuritic chest pain, Abdomen/GI: Negative for abdominal pain, nausea, vomiting, diarrhea, and constipation, Back: Negative for injury and pain, MS/Extremity: Negative for injury and deformity, Skin: Negative for injury, rash, and discoloration, Neuro: Negative for seizure Exam: 15:24 Constitutional: This is a well developed, well nourished patient who is awake, alert, rn and in no acute distress. Head/Face: Normocephalic, atraumatic. Eyes: Periorbital areas with no swelling, redness, or edema. ENT: Mucous membranes moist. Neck: No Meningismus. Cardiovascular: Regular rate and rhythm. No pulse deficits. Respiratory: No increased work of breathing, no retractions or nasal flaring. Abdomen/GI: Soft, non-tender Skin: Warm, dry MS/ Extremity: Pulses equal, no cyanosis. Neuro: Awake, alert, tearful, + left lower facial droop, forehead sparing, + LUE and LLE weakness and numbness. Vital Signs: 14:10 BP 149 / 98; Pulse 83; Resp 19; Pulse Ox 98% ; ww 14:16 BP 141 / 98; Pulse 82; Resp 18; Temp 98.3; Pulse Ox 98% on R/A; Weight 65.77 kg; Height ph 4 ft. 11 in. (149.86 cm); 14:18 BP 140 / 92; Pulse 96; Resp 17; Pulse Ox 98% ; ww 14:27 Weight 75.5 kg; ww 15:00 BP 143 / 91; Pulse 75; Resp 18; Pulse Ox 99% on R/A; downs 16:00 BP 139 / 94; Pulse 79; Resp 18; Pulse Ox 100% on R/A; downs 14:27 Body Mass Index 33.62 (75.50 kg, 149.86 cm) NIH Stroke Scale Scores: 14:22 NIHSS Score: 7 rn MDM: 14:04 Patient medically screened. rn 14:15 ED course: CT head neg per Dr. Rosario. rn 15:15 ED course: Symptoms have mostly resolved, now reports only left great toe numb. NIH rn down from 7 to 1.. 16:43 Differential diagnosis: CVA, TIA, metabolic disorder. Data reviewed: vital signs, rn nurses notes, lab test result(s), EKG, radiologic studies, CT scan, and as a result, I will admit patient. Counseling: I had a detailed discussion with the patient and/or guardian regarding: the historical points, exam findings, and any diagnostic results supporting the discharge/admit diagnosis, lab results, radiology results, the need for further work-up and treatment in the hospital. Response to treatment: the patient's symptoms have markedly improved after treatment, and as a result, I will admit patient. Admission orders: after a detailed discussion of the patient's condition and case, the admit orders are written by me. ED course: CT angio neg for LVO, will admit to hospitalist service for CVA, improved markedly after TPA.. 11/10 14:10 Order name: Basic Metabolic Panel; Complete Time: 15: 11/10 14:10 Order name: CBC with Diff; Complete Time: 15: 11/10 14:10 Order name: Protime (+inr); Complete Time: 15: 11/10 14:10 Order name: Ptt, Activated; Complete Time: 15: 11/10 15:14 Order name: Glucose, Ancillary Testing; Complete Time: 15: [facility] 11/10 17:39 Order name: SARS-COV-2 RT PCR (Document "Date of Onset" if Symptomatic) 11/10 14:10 Order name: CT Stroke Brain w/o Contrast; Complete Time: 15: 11/10 14:10 Order name: Stroke CXR 1 View; Complete Time: 16:43 11/10 14:10 Order name: EKG; Complete Time: 14:11 11/10 14:10 Order name: Accucheck; Complete Time: 14: 11/10 14:10 Order name: Cardiac monitoring; Complete Time: 14: 11/10 14:35 Order name: CT Head Angio; Complete Time: 16:43 rn 11/10 20:19 Order name: RPR EDFL 11/10 14:10 Order name: EKG - Nurse/Tech; Complete Time: 14: iw 11/10 14:10 Order name: IV Saline Lock; Complete Time: : 11/10 14:10 Order name: Labs collected and sent; Complete Time: 14: 11/10 14:10 Order name: NPO; Complete Time: 14: iw 11/10 14:10 Order name: O2 Per Protocol; Complete Time: :26 iw 11/10 14:10 Order name: O2 Sat Monitoring; Complete Time: 14: iw 11/10 14:10 Order name: Stroke Swallow Screen; Complete Time: iw Administered Medications: 14:43 Drug: ACTIvase (alteplase) {Co-Signature: roz (Jen Davies RN).} Route: IV downs Thrombolytics; Rate: calculated rate; Infused Over: 60 mins; 15:21 Follow up: Response: No adverse reaction downs 16:51 Follow up: Response: No adverse reaction downs 16:51 Follow up: Response: No adverse reaction downs Disposition Summary: 11/10/21 16:45 Hospitalization Ordered Hospitalization Status: Inpatient Admission rn Provider: Darrel Clark rn Location: Intensive Care Unit rn Condition: Stable rn Problem: new rn Symptoms: have improved rn Bed/Room Type: Standard rn Room Assignment: 5-(11/10/21 20:27) cg Diagnosis - Cerebral infarction, unspecified rn - Weakness rn - Facial weakness rn - Paresthesia of skin rn Forms: - Medication Reconciliation Form rn - 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 Total time: 40 rn minutes NIH Stroke Scale - NIH Stroke Score Date: 11/10/2021 Time: Total Score = 7 1a. Level of Consciousness (LOC) - 0(Alert) 1b. Level of Consciousness (LOC) (Month \\T\\ Age) - 0(Both) 1c. LOC Commands (Open \\T\\ Closes Eyes/Rubber Goods Supervisor) - 0(Both) 2. Best Gaze (Lateral Gaze Paresis) - 0(Normal) 3. Visual Field Loss - 0(No visual loss) 4. Facial Palsy - 2(Partial paralysis) 5a. Left Arm: Motor (10-second hold) - 2(Drift, some effort against gravity) 5b. Right Arm: Motor (10-second hold) - 0(No drift) 6a. Left Leg: Motor (5-second hold - always test supine) - 2(Drift, some effort against gravity) 6b. Right Leg: Motor (5-second hold - always test supine) - 0(No drift) 7. Limb Ataxia (finger/nose \\T\\ heel/okeefe - test with eyes open) - 0(Absent) 8. Sensory Loss (pinprick arms/legs/face) - 1(Mild to moderate loss) 9. Best Language: Aphasia (description/naming/reading) - 0(No aphasia) 10. Dysarthria (speech clarity - read or repeat words) - 0(Normal) 11. Extinction and Inattention (visual/tactile/auditory/spatial/personal) - 0(No abnormality) Initials: rn Signatures: Dispatcher [employer] Annika Anguiano RN RN iw Nieto, Roman, MD MD rn Hall, Patricia, RN RN ph Garcia, Cindy, RN RN cg Au-Stager, Heather, RN RN ha Whitney Wood RN ww Corrections: (The following items were deleted from the chart) 20:27 16:45 katey casillas
--- NOTE | 2021-11-10 17:55 | P.HP ---
Certification for Inpatient Patient admitted to: Inpatient With expected LOS: >2 Midnights Practitioner: I am a practitioner with admitting privileges, knowledge of patient current condition, hospital course, and medical plan of care. Services: Services provided to patient in accordance with Admission requirements found in Title 42 Section 412.3 of the Code of Federal Regulations Patient History Date of Service: 11/10/21 Reason for admission: Left-sided numbness and weakness History of Present Illness: 40-year-old woman, known cigarette smoker, no other known medical disease was brought to the emergency department due to sudden onset left-sided weakness and numbness. According to the patient her symptoms started with numbness in the time, followed by numbness in the left hand and the left leg, later developed weakness to the point she could not walk, left her left arm or grasp anything with the left hand. Patient presented within 1 hour of symptoms onset. Stroke protocol was initiated in the ED, CT head did not show acute stroke, patient was given TPA. Left-sided weakness almost resolved after completing the TPA. Currently has a residual numbness on the left foot. Patient denied any speech problem or swallowing problem. Chest x-ray unremarkable. Patient is admitted for further management. Allergies NK Allergy (Uncoded 08/30/15 10:40) Unknown No Known Allergies Allergy (Uncoded 12/27/16 10:52) Unknown - Past Medical/Surgical History -: Tobacco use -: None - Family History Father -: Cancer Mother -: Hypertension - Social History Smoking Status: Current every day smoker Alcohol use: No CD- Drugs: No Place of Residence: Home Review of Systems Other: Except as documented, all other systems reviewed and negative. Physical Examination - Physical Exam General: Alert, In no apparent distress, Oriented x3 HEENT: PERRLA, Mucous membr. moist/pink, EOMI, Sclerae nonicteric Neck: Supple, JVD not distended Respiratory: Clear to auscultation bilaterally, Normal air movement Cardiovascular: No edema, Regular rate/rhythm, Normal S1 S2, No murmurs Capillary refill: <2 Seconds Gastrointestinal: Normal bowel sounds, Soft and benign, Non-distended, No tenderness Musculoskeletal: No swelling Integumentary: No rashes, No erythema Neurological: Normal speech, Normal strength at 5/5 x4 extr, Cranial nerves 3-12 intact Lymphatics: No axilla or inguinal lymphadenopathy - Studies Laboratory Data (last 24 hrs) 11/10/21 14:18: PT 11.5, INR 1.04, APTT 30.5 11/10/21 14:18: WBC 7.7, Hgb 12.9, Hct 37.1, Plt Count 458 H 11/10/21 14:18: Sodium 139, Potassium 3.3 L, BUN 14, Creatinine 0.67, Glucose 87 Assessment and Plan - Problems (Diagnosis) (1) Acute CVA (cerebrovascular accident) Current Visit: Yes Status: Acute (2) Tobacco use Current Visit: Yes Status: Acute - Plan Admit patient to the ICU for post TPA monitoring. Continue stroke protocol Neurochecks. Neurology consult Speech consult for swallow and speech evaluation PT consult Bedside swallow No aspirin for the next 24 hours given TPA. MRI of the brain Repeat CT head within 24 hours. Obtain echocardiogram. Blood pressure control-hydralazine as needed. Lipitor 40 mg daily Check lipid profile. Patient does not have any significant risk factors except smoking. Will obtain hypercoagulable studies. - Advance Directives Does patient have a Living Will: No Does patient have a Durable POA for Healthcare: No
[2021-11-10] MEDS ORDERED: ACETAMINOPHEN 500 MG TAB PO PRN (19:33)
[2021-11-10] MEDS: NA CHLORIDE 0.9% 1,000 ML IV SCH (19:33)
[2021-11-10] MEDS ORDERED: NA CHLORIDE 0.9% 1,000 ML ONE (20:08)
[2021-11-10] MEDS ORDERED: ATORVASTATIN 20 MG TAB PO SCH (21:00)
[2021-11-10 21:03] VITALS: BMI 29.2
[2021-11-10 22:34] LABS: Folic Acid, (Folate) 16.3 ng/mL (3.1-17.5)
[2021-11-11 00:45] VITALS: O2SAT 100
[2021-11-11 05:11] LABS: Protime INR 1.18
[2021-11-11 05:13] LABS: Absolute Lymphocytes (CBC) 2.3 K/uL (0.7-4.9); Hematocrit 35.2 % (36.0-45.0); MPV 6.6 fL (7.6-11.3); RBC Red Blood Cell Count 3.59 M/uL (3.86-4.86)
[2021-11-11 05:34] LABS: ALT/SGPT 143 U/L (12-78); AST/SGOT 41 U/L (15-37); Albumin 3.2 g/dL (3.4-5.0); Alkaline Phosphatase 90 U/L (45-117); BUN Blood Urea Nitrogen 14 mg/dL (7-18); Bicarbonate 24 mmol/L (21-32); Bilirubin Total 0.2 mg/dL (0.2-1.0); Glucose Level 121 mg/dL (74-106); HDL Cholesterol 29 mg/dL (40-60); LDL Cholesterol, Calculated 116 (<130); Magnesium 2.1 mg/dL (1.8-2.4); Phosphorus 3.3 mg/dL (2.5-4.9); Potassium 3.6 mmol/L (3.5-5.1); Protein, Total 6.5 g/dL (6.4-8.2); Sodium Level 140 mmol/L (136-145)
--- NOTE | 2021-11-11 08:31 | EKG ---
Test Date: 2021-11-10 Test Time: 14:27:26 After School Tutor: STACI MEASUREMENT RESULTS: Intervals: Rate: 82 MA: 182 QRSD: 78 QT: 392 QTc: 457 Levan: P: 58 MA: 182 QRS: 56 T: 50 INTERPRETIVE STATEMENTS: Normal sinus rhythm Normal ECG No previous ECG available for comparison Electronically Signed On 11-11-21 08:28:04 CDT by Javier Lee
--- NOTE | 2021-11-11 08:54 | P.DS ---
Admission Date: 11/10/21 Discharge Date: 11/11/21 Disposition: ROUTINE DISCHARGE Discharge Condition: FAIR Reason for Admission: Left-sided numbness and weakness - Problems (1) Acute CVA (cerebrovascular accident) Current Visit: Yes Status: Acute (2) Tobacco use Current Visit: Yes Status: Acute Brief History of Present Illness: 40-year-old woman, known cigarette smoker, no other known medical disease was brought to the emergency department due to sudden onset left-sided weakness and numbness. According to the patient her symptoms started with numbness in the time, followed by numbness in the left hand and the left leg, later developed weakness to the point she could not walk, left her left arm or grasp anything with the left hand. Patient presented within 1 hour of symptoms onset. Stroke protocol was initiated in the ED, CT head did not show acute stroke, patient was given TPA. Left-sided weakness almost resolved after completing the TPA. Currently has a residual numbness on the left foot. Patient denied any speech problem or swallowing problem. Chest x-ray unremarkable. Patient is admitted for further management. Hospital Course: Patient admitted to the ICU for post TPA monitoring. Patient had no neurologic symptoms. Her left-sided weakness resolved. No visual problems, no problem with swallowing. Echocardiogram done and... MRI of the brain, repeat CT head shows no.. Hypercoagulable work-up ordered and the results are pending. Patient with acute CVA. Started on Lipitor, folic acid. She is prescribed aspirin and Plavix. She needs to follow-up with neurology within 1 month. Vital Signs/Physical Exam: Temp Pulse Resp BP Pulse Ox 97.3 F 75 16 106/69 97 11/11/21 04:00 11/11/21 06:00 11/11/21 06:00 11/11/21 06:00 11/11/21 06:00 General: Alert, In no apparent distress, Oriented x3 HEENT: Mucous membr. moist/pink Neck: JVD not distended Respiratory: Clear to auscultation bilaterally, Normal air movement Cardiovascular: No edema, Regular rate/rhythm, Normal S1 S2, No murmurs Capillary refill: <2 Seconds Gastrointestinal: Normal bowel sounds, Soft and benign, Non-distended, No tenderness Musculoskeletal: No swelling Integumentary: No rashes Neurological: Normal gait, Normal speech, Normal strength at 5/5 x4 extr, Cranial nerves 3-12 intact Laboratory Data at Discharge: WBC 5.9 K/uL (4.3-10.9) D 11/11/21 04:43 Hgb 12.2 g/dL (12.0-15.0) 11/11/21 04:43 Hct 35.2 % (36.0-45.0) L 11/11/21 04:43 Plt Count 434 K/uL (152-406) H 11/11/21 04:43 PT 13.0 SECONDS (9.5-12.5) H 11/11/21 04:43 INR 1.18 11/11/21 04:43 APTT 30.5 SECONDS (24.3-36.9) 11/10/21 14:18 Sodium 140 mmol/L (136-145) 11/11/21 04:43 Potassium 3.6 mmol/L (3.5-5.1) 11/11/21 04:43 BUN 14 mg/dL (7-18) 11/11/21 04:43 Creatinine 0.53 mg/dL (0.55-1.3) L 11/11/21 04:43 Glucose 121 mg/dL (74-106) H 11/11/21 04:43 Phosphorus 3.3 mg/dL (2.5-4.9) 11/11/21 04:43 Magnesium 2.1 mg/dL (1.8-2.4) 11/11/21 04:43 Total Bilirubin 0.2 mg/dL (0.2-1.0) 11/11/21 04:43 AST 41 U/L (15-37) H 11/11/21 04:43 ALT 143 U/L (12-78) H 11/11/21 04:43 Alkaline Phosphatase 90 U/L (45-117) 11/11/21 04:43 Triglycerides 171 mg/dL (<150) H 11/11/21 04:43 Cholesterol 179 mg/dL (<200) 11/11/21 04:43 HDL Cholesterol 29 mg/dL (40-60) L 11/11/21 04:43 Cholesterol/HDL Ratio 6.17 11/11/21 04:43 Home Medications: Aspirin [Aspirin EC 81 MG] 81 mg PO DAILY #30 tablet.dr 11/11/21 Atorvastatin Calcium [Lipitor*] 40 mg PO BEDTIME #30 tab 11/11/21 Clopidogrel Bisulfate [Plavix] 75 mg PO DAILY #30 tablet 11/11/21 Folic Acid 1 mg PO DAILY #30 tablet 11/11/21 New Medications: Aspirin [Aspirin EC 81 MG] 81 mg PO DAILY #30 tablet. Folic Acid 1 mg PO DAILY #30 tablet Atorvastatin Calcium [Lipitor*] 40 mg PO BEDTIME #30 tab Clopidogrel Bisulfate [Plavix] 75 mg PO DAILY #30 tablet Diet: AHA Activity: Ad jerry Followup: NONE,NONE [Primary Care Provider] - Gustavo Lau MD [ASSOCIATE-ACTIVE - CAN ADMIT] - Time spent managing pt's care (in minutes): 34
[2021-11-11] MEDS ORDERED: POTASSIUM CL SA 10 MEQ TAB PO ONE (09:00)
[2021-11-11] MEDS: NA CHLORIDE 0.9% 1,000 ML IV SCH (09:24)
[2021-11-11 12:00] VITALS: TEMP 96.5
[2021-11-11 12:00] LABS: Barbiturates NEGATIVE (NEGATIVE); Benzodiazepines NEGATIVE (NEGATIVE); Cocaine NEGATIVE (NEGATIVE); METHAMPHETAM NEGATIVE (NEGATIVE); Methadone NEGATIVE (NEGATIVE); Opiates NEGATIVE (NEGATIVE); Phencyclidine NEGATIVE (NEGATIVE); THC Cannibis NEGATIVE (NEGATIVE)
--- NOTE | 2021-11-11 12:04 | RAD REPORT ---
EXAM DESCRIPTION: MRI - Brain Wo Cont - 11/11/2021 11:53 am CLINICAL HISTORY: CVA COMPARISON: Head CT November 10, 2021 TECHNIQUE: Axial, sagittal, and coronal magnetic resonance images of the brain were obtained. FINDINGS: No significant abnormal signal within the brain Diffusion-weighted/ADC mapping does not reveal evidence of acute infarction. The ventricles are normal caliber. An extra-axial fluid collection is not noted. Fluid within the sinuses/mastoids is not seen IMPRESSION: No acute intracranial abnormality noted
[2021-11-11 13:37] LABS: Urine Appearance Clear (Clear); Urine Bilirubin Negative (Negative); Urine Blood 2+ (Negative); Urine Color Yellow (Yellow); Urine Glucose Negative (Negative); Urine Microscopic Reflex ORDER UMIC; Urine Protein Negative (Negative)
--- NOTE | 2021-11-11 13:43 | ECHO ---
HEIGHT: 4 ft 11 in WEIGHT: 145 lb 0 oz DATE OF STUDY: 11/11/[address]: erick washington 2-DIMENSIONAL: YES M.MODE: YES DOPPLER: YES COLOR FLOW: YES TDS: NO PORTABLE: YES DEFINITY: NO BUBBLE STUDY: NO DIAGNOSIS: STROKE CARDIAC HISTORY: CATHERIZATION: NO SURGERY: NO PROSTHETIC VALVE: NO PACEMAKER: NO MEASUREMENTS (cm) DIASTOLIC (NORMALS) SYSTOLIC (NORMALS) IVSd 0.8 (0.6-1.2) LA Diam 3.0 (1.9-4.0) LVEF 72% LVIDd 4.4 (3.5-5.7) LVIDs 2.6 (2.0-3.5) %FS 41% LVPWd 1.0 (0.6-1.2) Ao Diam 2.6 (2.0-3.7) 2 DIMENSIONAL ASSESSMENT: RIGHT ATRIUM: NORMAL LEFT ATRIUM: NORMAL RIGHT VENTRICLE: NORMAL LEFT VENTRICLE: NORMAL TRICUSPID VALVE: NORMAL MITRAL VALVE: NORMAL PULMONIC VALVE: NORMAL AORTIC VALVE: NORMAL PERICARDIAL EFFUSION: NONE AORTIC ROOT: NORMAL LEFT VENTRICULAR WALL MOTION: NORMAL DOPPLER/COLOR FLOW: NORMAL COMMENTS: NORMAL 2D ECHOCARDIOGRAM WITH DOPPLER. NO VEGETATION. NO ATRIAL SEPTUM DEFECT. TECHNOLOGIST: Charles MORALES
[2021-11-11 13:58] LABS: Urine Bacteria <20 /HPF (<20)
[2021-11-11 14:20] VITALS: BP 115/68
[2021-11-12 00:27] LABS: RPR (Rapid Plasma Reagin) NON-REACT (NON-REACT)
[2021-11-13 12:51] LABS: Protein C Antigen 103 % (70-140)
== END 2021-11-11 15:40 | disposition home or self-care (01) | DRG 62 ==
LOC: ER 13:55 → ERHOLD 17:42 → 3RD-ICU 21:10
PROVIDERS: ADMIT Internal Medicine; ATTEND Internal Medicine
DX: I63.9 Cerebral infarction, unspecified (principal); G81.94 Hemiplegia, unspecified affecting left nondominant side; R29.711 NIHSS score 11; Z72.0 Tobacco use; Z80.9 Family history of malignant neoplasm, unspecified; Z82.49 Family history of ischemic heart disease and other diseases of the circulatory system; Z20.822 Contact with and (suspected) exposure to COVID-19
CPT/HCPCS: 36415; 70450; 70496; 70551; 71045; 80048; 80053; 80061; 80307; 81003; 81015; 81025; 81240; 81241; 82306; 82607; 82746; 82947; 83090; 83735; 84100; 84165; 84443; 85025; 85300; 85302; 85305; 85306; 85610; 85652; 85730; 86021; 86146; 86147; 86148; 86592; 92977; 93005; 93306; 97116; 97161; 99291; 99292; J2997; J7030; Q9967; U0003

== ENCOUNTER 2022-04-15 09:22 | Inpatient (IN) | payer OTHER, SELFPAY ==
[2022-04-15 09:49] LABS: Absolute Lymphocytes (CBC) 2.1 K/uL (0.7-4.9); Hematocrit 39.3 % (36.0-45.0); Lymphocytes % 33.7 % (15.3-44.8); MCV 96.2 fL (80-100); MPV 6.1 fL (7.6-11.3); RBC Red Blood Cell Count 4.09 M/uL (3.86-4.86)
--- NOTE | 2022-04-15 09:58 | RAD REPORT ---
EXAM DESCRIPTION: CT - Ct Stroke Brain Wo Cont - 04/15/2022 9:48 am CLINICAL HISTORY: Headache COMPARISON: No comparisonsHead angio dated 11/10/2021; Ct Stroke Brain Wo Cont dated 11/10/2021 TECHNIQUE: All CT scans are performed using dose optimization technique as appropriate and may inclu de automated exposure control or mA/KV adjustment according to patient size. FINDINGS: No intracranial hemorrhage, hydrocephalus or extra-axial fluid collection.No areas of brai n edema or evidence of midline shift. The paranasal sinuses and mastoids are clear. The calvarium is intact. IMPRESSION: No acute intracranial abnormality. Called to Dr. Antunez by Dr. Israel at [id number] on 04/15/22
--- NOTE | 2022-04-15 10:02 | RAD REPORT ---
EXAM DESCRIPTION: RAD - Chest Single View - 04/15/2022 9:57 am CLINICAL HISTORY: headache, near syncope COMPARISON: Chest Single View dated 11/10/2021 FINDINGS: Lines: None. Lungs: No evidence of edema or pneumonia. Pleural: No significant pleural effusions or pneumothorax. Cardiac: The heart size is within normal limits. Mediastinum: Within normal limits. Bones: No acute fractures. Other: None IMPRESSION: No acute cardiopulmonary disease.
[2022-04-15 10:04] LABS: Potassium 3.7 mmol/L (3.5-5.1)
--- NOTE | 2022-04-15 10:41 | EDPHYS ---
Physician Documentation [facility] Name: Mirna Allen Age: 41 yrs Sex: Female : 1980 Arrival Date: 04/15/2022 Time: 09:26 Bed 25 Private MD: ED Physician Rai Antunez HPI: 04/15 09:30 This 41 yrs old Female presents to ER via Unassigned with complaints of ms3 headache, near syncope. 09:30 41-year-old female with past medical history of seizures in her 20s, CVA a few months ms3 ago presents via [facility] for headache and near syncope. Patient was working at [employer] when she collapsed and coworkers lowered her to the ground at 8:45 AM. Coworkers state patient did have shaking. EMS states patient's blood glucose level was 145, blood pressure 126/84. Patient endorses headache and dizziness that began last night. Patient rates her headache a 10/10 and describes the pain as throbbing and located in the right frontal portion of her head. Patient denies alleviating or inciting factors.. 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 - Social history:: Smoking status: Patient reports the use of cigarette tobacco products, smokes one pack cigarettes per day. ROS: 09:30 Constitutional: Negative for fever, and chills. Neck: Negative for injury, pain, and ms3 swelling, Cardiovascular: Negative for chest pain, and palpitations. Respiratory: Negative for shortness of breath, cough, wheezing, and pleuritic chest pain, Abdomen/GI: Negative for abdominal pain, nausea, vomiting, diarrhea, and constipation, MS/Extremity: Negative for injury and deformity. 09:30 Neuro: Positive for headache, near syncope, weakness. 09:30 All other systems are negative. Exam: 09:30 Constitutional: This is a well developed, well nourished patient who is awake, alert, ms3 and in no acute distress. Head/Face: Normocephalic, atraumatic. Neck: Trachea midline, no cervical lymphadenopathy. Supple, full range of motion without nuchal rigidity, or vertebral point tenderness. No Meningismus. Chest/axilla: Normal chest wall appearance and motion. Nontender with no deformity. Cardiovascular: Regular rate and rhythm with a normal S1 and S2. No gallops, murmurs, or rubs. Normal PMI, no JVD. No pulse deficits. Respiratory: Lungs have equal breath sounds bilaterally, clear to auscultation and percussion. No rales, rhonchi or wheezes noted. No increased work of breathing, no retractions or nasal flaring. Abdomen/GI: Soft, non-tender, with normal bowel sounds. No distension or tympany. No guarding or rebound. No evidence of tenderness throughout. Skin: Warm, dry with normal turgor. Normal color with no rashes, no lesions, and no evidence of cellulitis. Psych: Awake, alert, with orientation to person, place and time. Behavior, mood, and affect are within normal limits. 09:30 Neuro: Orientation: is normal, Mentation: is normal, Memory: is normal, Cranial nerves: grossly normal, Cerebellar function: is grossly normal, Motor: Strength is 2/5 in the left arm. 09:30 ECG was reviewed by the Attending Physician. ms3 Vital Signs: 09:22 BP 140 / 90; Pulse 104; Resp 16; Temp 98.4(O); Pulse Ox 98% on R/A; Weight 74.84 kg; vg1 Height 4 ft. 11 in. (149.86 cm); Pain 10/10; 10:00 BP 125 / 80; Pulse 87; Resp 17; Pulse Ox 97% on R/A; vg1 11:45 BP 127 / 82; Pulse 70; Resp 17; Pulse Ox 99% on R/A; vg1 12:45 BP 111 / 70; Pulse 72; Resp 14; Pulse Ox 98% on R/A; eh3 13:45 BP 113 / 84; Pulse 73; Resp 18; Pulse Ox 98% on R/A; eh3 09:22 Body Mass Index 33.33 (74.84 kg, 149.86 cm) vg1 NIH Stroke Scale Scores: 10:36 NIHSS Score: 2 ms3 MDM: 09:26 Patient medically screened. ms3 09:30 Differential diagnosis: cluster headache, Seizure. ED course: Patient with movement of ms3 bilateral arms for RN. 10:28 ED course: Discussed case with Dr Lau. Recommends TNKase and CTA.. ms3 10:37 Data reviewed: vital signs, nurses notes, lab test result(s), EKG, radiologic studies, ms3 CT scan. 04/15 09:29 Order name: Basic Metabolic Panel; Complete Time: 10:15 ms3 04/15 09:29 Order name: CBC with Diff; Complete Time: 10:15 ms3 04/15 10:16 Order name: Troponin HS; Complete Time: 11:10 ms3 04/15 10:58 Order name: SARS RAPID bd 04/15 13:01 Order name: T4 Free EDMS 04/15 13:01 Order name: Thyroid Stimulating Hormone EDMS 04/15 09:29 Order name: CT Stroke Brain w/o Contrast; Complete Time: 10:15 ms3 04/15 13:01 Order name: Urinalysis EDMS 04/15 13:01 Order name: Basic Metabolic Panel EDMS 04/15 13:01 Order name: Basic Metabolic Panel EDMS 04/15 13:01 Order name: CBC with Automated Diff EDMS 04/15 13:01 Order name: CBC with Automated Diff EDMS 04/15 20:13 Order name: Hemoglobin A1c EDMS 04/15 20:47 Order name: Lipid Profile EDMS 04/15 09:29 Order name: Stroke CXR 1 View; Complete Time: 10:15 ms3 04/15 09:29 Order name: EKG; Complete Time: 09:31 ms3 04/15 09:29 Order name: Accucheck; Complete Time: 09:53 ms3 04/15 09:29 Order name: Cardiac monitoring; Complete Time: 09:37 ms3 04/15 09:29 Order name: EKG - Nurse/Tech; Complete Time: 09:37 ms3 04/15 09:29 Order name: IV Saline Lock; Complete Time: 09:41 ms3 04/15 09:29 Order name: Labs collected and sent; Complete Time: 09:41 ms3 04/15 09:29 Order name: NPO; Complete Time: 09:41 ms3 04/15 09:29 Order name: O2 Per Protocol; Complete Time: 09:42 ms3 04/15 10:38 Order name: CT Head Angio; Complete Time: 12:03 ms3 04/15 10:39 Order name: CT Neck Angio; Complete Time: 12:03 ms3 04/15 11:40 Order name: Ankle Left 3 View XRAY; Complete Time: 12:03 vg1 04/15 13:01 Order name: Regular EDMS 04/15 13:07 Order name: Brain Wo Cont EDMS 04/15 18:42 Order name: US EDMS 04/15 09:29 Order name: O2 Sat Monitoring; Complete Time: :42 ms3 EC:30 Rate is 86 beats/min. Rhythm is regular. QRS [place] is Normal. WI interval is normal. ms3 Clinical impression: Normal ECG. Interpreted by me. Reviewed by me. Administered Medications: 10:58 Drug: TNK FOR STROKE - Tenecteplase 0.25 mg/kg {Co-Signature: iw (Annika greenwood1 RN).} Route: IV; Rate: per protocol; Site: right antecubital; 11:52 Follow up: IV Status: Completed infusion; IV Intake: 3.8ml vg1 Disposition Summary: 04/15/22 10:40 Hospitalization Ordered Hospitalization Status: Inpatient Admission ms3 Condition: Stable ms3 Problem: new ms3 Symptoms: are unchanged ms3 Bed/Room Type: Standard ms3 Provider: Yamilka Andrews(04/15/22 12:06) ms3 Location: Intensive Care Unit(04/15/22 19:24) dw Room Assignment: 2-(04/15/22 19:24) dw Diagnosis - Ischemic CVA ms3 - Left upper extremity weakness ms3 - Left lower extremity weakness ms3 - Headache ms3 Forms: - Medication Reconciliation Form ms3 - SBAR form ms3 Critical care time excluding procedures: 15:01 Critical care time: Bedside Care: 30 minutes, Consultation: 10 minutes, Family ms3 Intervention: 10 minutes. Total time: 50 minutes NIH Stroke Scale - NIH Stroke Score Date: 04/15/2022 Time: 10:36 Total Score = 2 1a. Level of Consciousness (LOC) - 0(Alert) 1b. Level of Consciousness (LOC) (Month \T\ Age) - 0(Both) 1c. LOC Commands (Open \T\ Closes Eyes/Screw Remover) - 0(Both) 2. Best Gaze (Lateral Gaze Paresis) - 0(Normal) 3. Visual Field Loss - 0(No visual loss) 4. Facial Palsy - 0(Normal) 5a. Left Arm: Motor (10-second hold) - 1(Drift) 5b. Right Arm: Motor (10-second hold) - 0(No drift) 6a. Left Leg: Motor (5-second hold - always test supine) - 1(Drift) 6b. Right Leg: Motor (5-second hold - always test supine) - 0(No drift) 7. Limb Ataxia (finger/nose \T\ heel/okeefe - test with eyes open) - 0(Absent) 8. Sensory Loss (pinprick arms/legs/face) - 0(Normal) 9. Best Language: Aphasia (description/naming/reading) - 0(No aphasia) 10. Dysarthria (speech clarity - read or repeat words) - 0(Normal) 11. Extinction and Inattention (visual/tactile/auditory/spatial/personal) - 0(No abnormality) Initials: ms3 Signatures: Dispatcher [employer] Jayla Banerjee RN RN dw Jess Anderson RN RN vg1 Rai Antunez DO DO ms3 Annika Garcia RN iw Corrections: (The following items were deleted from the chart) 12:06 10:40 Darrel Clark ms3 ms3 19:24 10:40 Telemetry/MedSurg (Inpatient) ms3 dw 19:24 10:40 ms3 dw
--- NOTE | 2022-04-15 10:41 | ER ---
Nurse's Notes [facility] Name: Mirna Allen Age: 41 yrs Sex: Female : 1980 Arrival Date: 04/15/2022 Time: 09:26 Bed 25 Private MD: Diagnosis: Ischemic CVA;Left upper extremity weakness;Left lower extremity weakness;Headache Presentation: 04/15 09:22 Chief complaint: EMS states: Pt was at work at [employer] when walked up to employee vg1 stating "Im not feeling too good" Pt employee stated pt looked pale and passed out; pt was caught by employee and did not hit head, pt was placed on floor and it appear pt was having a seizure; pt states is on a blood thinner but unsure which one. 09:22 Coronavirus screen: Vaccine status: Patient reports receiving the 2nd dose of the covid vg1 vaccine. Client denies travel out of the [place] in the last 14 days. Ebola Screen: Patient denies exposure to infectious person. Patient denies travel to an Ebola-affected area in the 21 days before illness onset. Initial Sepsis Screen: Does the patient meet any 2 criteria? HR > 90 bpm. Does the patient have a suspected source of infection? No. Patient's initial sepsis screen is negative. Risk Assessment: Do you want to hurt yourself or someone else? Patient reports no desire to harm self or others. Onset of symptoms was April 15, 2022. 09:22 Method Of Arrival: EMS: [facility] 09:22 Acuity: WILLIAM 3 vg1 09:22 Care prior to arrival: Glucose check: 145. vg1 09:41 Care prior to arrival: IV initiated. 20 GA, in the right antecubital area. vg1 Triage Assessment: 09:36 General: Appears in no apparent distress. uncomfortable, Behavior is calm, cooperative. vg1 Pain: Complains of pain in head Pain currently is 10 out of 10 on a pain scale. EENT: No signs and/or symptoms were reported regarding the EENT system. Neuro: Kirk Agitation-Sedation Scale (RASS): 0 - Alert and Calm Level of Consciousness is awake, alert, obeys commands, Oriented to person, place, time, situation, Commercial Installer are equal bilaterally Moves all extremities. Gait is unsteady, Speech is normal, Facial symmetry appears normal, Facial symmetry: tongue is midline, Reports dizziness, headache paresthesias in left arm and left leg photophobia a syncopal episode. Cardiovascular: Patient's skin is warm and dry. Respiratory: Airway is patent Respiratory effort is even, unlabored. GI: No signs and/or symptoms were reported involving the gastrointestinal system. : No signs and/or symptoms were reported regarding the genitourinary system. Derm: Skin is pink, warm \\T\\ dry. Musculoskeletal: Circulation, motion, and sensation intact. 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 - Social history:: Smoking status: Patient reports the use of cigarette tobacco products, smokes one pack cigarettes per day. Screenin:40 Abuse screen: Denies threats or abuse. Nutritional screening: No deficits noted. vg1 Tuberculosis screening: No symptoms or risk factors identified. Fall Risk No fall in past 12 months (0 pts). No secondary diagnosis (0 pts). IV access (20 points). Ambulatory Aid- None/Bed Rest/Nurse Assist (0 pts). Gait- Weak (10 pts.). Mental Status- Oriented to own ability (0 pts). Total Mayes Fall Scale indicates No Risk (0-24 pts). Assessment: 09:40 Reassessment: SEE TRIAGE. vg1 10:58 Reassessment: TNK administered at 1058; please refer to 'IV Thrombolytic Vital Sign and vg1 Neurological Flowsheet' for further information. 11:45 Reassessment: Patient appears in no apparent distress at this time. Patient and/or vg1 family updated on plan of care and expected duration. Pain level reassessed. Patient is alert, oriented x 3, equal unlabored respirations, skin warm/dry/pink. pt c/o Left ankle pain Patient states feeling better. 12:15 Reassessment: Patient and/or family updated on plan of care and expected duration. Pain eh3 level reassessed. Patient is alert, oriented x 3, equal unlabored respirations, skin warm/dry/pink. General: Appears in no apparent distress. comfortable, Behavior is calm, cooperative, appropriate for age. Pain: Complains of pain in left lateral ankle, left Achilles, left medial ankle and anterior aspect of left ankle Pain does not radiate. Pain currently is 7 out of 10 on a pain scale. Quality of pain is described as aching, sharp, Pain began 4 hours ago. Is continuous, Alleviated by rest, Aggravated by weight bearing. Neuro: Level of Consciousness is awake, alert, obeys commands, Oriented to person, place, time, situation, Commercial Installer are equal bilaterally Moves all extremities. Speech is normal, Facial symmetry appears normal, Pupils are PERRLA, Intact. Cardiovascular: Capillary refill < 3 seconds Patient's skin is warm and dry. Rhythm is sinus rhythm. Respiratory: Airway is patent Respiratory effort is even, unlabored. Musculoskeletal: Circulation, motion, and sensation intact. 12:51 Reassessment: Ambulated without assistance to restroom, nurse was not aware of pt eh3 ambulating until seeing pt return to room. Pt educated to call for assistance before ambulating because a fall may result in excessive bleeding due to TNK. Pt verbalized understanding and stated she will call for assistance next time. 14:00 Reassessment: Patient and/or family updated on plan of care and expected duration. Pain eh3 level reassessed. Patient is alert, oriented x 3, equal unlabored respirations, skin warm/dry/pink. 15:00 Reassessment: Patient and/or family updated on plan of care and expected duration. Pain eh3 level reassessed. Pt complains of headache with 8/10 pain. Provider notified. Vital Signs: 09:22 BP 140 / 90; Pulse 104; Resp 16; Temp 98.4(O); Pulse Ox 98% on R/A; Weight 74.84 kg; vg1 Height 4 ft. 11 in. (149.86 cm); Pain 10/10; 10:00 BP 125 / 80; Pulse 87; Resp 17; Pulse Ox 97% on R/A; vg1 11:45 BP 127 / 82; Pulse 70; Resp 17; Pulse Ox 99% on R/A; vg1 12:45 BP 111 / 70; Pulse 72; Resp 14; Pulse Ox 98% on R/A; eh3 13:45 BP 113 / 84; Pulse 73; Resp 18; Pulse Ox 98% on R/A; eh3 09:22 Body Mass Index 33.33 (74.84 kg, 149.86 cm) vg1 NIH Stroke Scale Scores: 10:36 NIHSS Score: 2 ms3 ED Course: 09:26 Patient arrived in ED. ms3 09:26 Rai Antunez DO is Attending Physician. ms3 09:30 Jess Anderson RN is Primary Nurse. vg1 09:36 Triage completed. vg1 09:36 Arm band placed on. EKG completed in triage. Results shown to MD. vg1 09:37 EKG done, by ED staff, reviewed by Rai Antunez DO. em1 09:41 Patient has correct armband on for positive identification. Bed in low position. Call vg1 light in reach. Side rails up X2. Client placed on continuous cardiac and pulse oximetry monitoring. NIBP monitoring applied. 09:50 CT Stroke Brain w/o Contrast In Process Unspecified. EDMS 09:59 Stroke CXR 1 View In Process Unspecified. EDMS 10:39 Darrel Clark is Hospitalizing Provider. ms3 11:35 CT Head Angio In Process Unspecified. EDMS 11:35 CT Neck Angio In Process Unspecified. EDMS 11:58 Ankle Left 3 View XRAY In Process Unspecified. EDMS 12:00 Report given to Andria ERAZO. vg1 12:06 Yamilka Andrews MD is Hospitalizing Provider. ms3 17:08 Primary Nurse role handed off by Jess Anderson, CASTRO eh3 17:29 Andria Rosas, RN is Primary Nurse. eh3 18:49 No provider procedures requiring assistance completed. Converted IV to saline lock on 3 left antecubital area. 18:50 Patient admitted, IV remains in place. eh3 Administered Medications: 10:58 Drug: TNK FOR STROKE - Tenecteplase 0.25 mg/kg {Co-Signature: adrian (Annika greenwood1 RN).} Route: IV; Rate: per protocol; Site: right antecubital; 11:52 Follow up: IV Status: Completed infusion; IV Intake: 3.8ml vg1 Medication: 09:40 VIS not applicable for this client. vg1 Intake: 11:52 IV: 4ml; Total: 4ml. vg1 Outcome: 10:40 Decision to Hospitalize by Provider. ms3 17:07 Patient left the ED. eh3 18:49 Admitted to ER Hold. Please see [facility] for further documentation. eh3 18:49 Condition: stable 18:49 Instructed on the need for admit. 21:31 Patient left the ED. eh3 NIH Stroke Scale - NIH Stroke Score Date: 04/15/2022 Time: 10:36 Total Score = 2 1a. Level of Consciousness (LOC) - 0(Alert) 1b. Level of Consciousness (LOC) (Month \\T\\ Age) - 0(Both) 1c. LOC Commands (Open \\T\\ Closes Eyes/Road Roller Operator) - 0(Both) 2. Best Gaze (Lateral Gaze Paresis) - 0(Normal) 3. Visual Field Loss - 0(No visual loss) 4. Facial Palsy - 0(Normal) 5a. Left Arm: Motor (10-second hold) - 1(Drift) 5b. Right Arm: Motor (10-second hold) - 0(No drift) 6a. Left Leg: Motor (5-second hold - always test supine) - 1(Drift) 6b. Right Leg: Motor (5-second hold - always test supine) - 0(No drift) 7. Limb Ataxia (finger/nose \\T\\ heel/okeefe - test with eyes open) - 0(Absent) 8. Sensory Loss (pinprick arms/legs/face) - 0(Normal) 9. Best Language: Aphasia (description/naming/reading) - 0(No aphasia) 10. Dysarthria (speech clarity - read or repeat words) - 0(Normal) 11. Extinction and Inattention (visual/tactile/auditory/spatial/personal) - 0(No abnormality) Initials: ms3 Signatures: Dispatcher [employer] EDBigg Alejandro em1 Jess Anderson, RN RN vg1 Rai Antunez DO DO ms3 Andrai Rosas, CASTRO ERAZO 3 Annika Garcia RN Corrections: (The following items were deleted from the chart) 09:48 09:36 Neuro: Kirk Agitation-Sedation Scale (RASS): 0 - Alert and Calm Level vg1 of Consciousness is awake, alert, obeys commands, Oriented to person, place, time, situation, Commercial Installer are equal bilaterally Moves all extremities. Gait is unsteady, Speech is normal, Facial symmetry appears normal, Facial symmetry: tongue is midline, Reports dizziness, headache photophobia a syncopal episode vg1
[2022-04-15] MEDS ORDERED: TENECTEPLASE 50 MG/10 ML VIAL IV ONE (10:59)
--- NOTE | 2022-04-15 11:39 | RAD REPORT ---
EXAM DESCRIPTION: CT - Neck Angio - 04/15/2022 11:33 am CLINICAL HISTORY: Left sided weakness COMPARISON: No comparisons TECHNIQUE: CT angiography of the neck vessels was performed with MIPs. All CT scans are performed using dose optimization technique as appropriate and may include automated exposure control or mA/KV adjustment according to patient size. FINDINGS: A left aortic arch is identified with normal three vessel configuration of the great vesse ls. No significant flow abnormality is seen of the common carotid bilaterally. No significant stenosis is identified involving the cervical segments of both internal carotid arteri es. Normal flow is seen within both vertebral arteries. Right dominant vertebral artery. IMPRESSION: No significant flow abnormality of the neck vessels is identified.
--- NOTE | 2022-04-15 11:41 | RAD REPORT ---
EXAM DESCRIPTION: CT - Head angio - 04/15/2022 11:33 am CLINICAL HISTORY: left sided weakness COMPARISON: Ct Stroke Brain Wo Cont dated 04/15/2022; Head angio dated 11/10/2021 TECHNIQUE: CT angiography of the head was performed with MIPs. All CT scans are performed using dose optimization technique as appropriate and may include automated exposure control or mA/KV adjustment according to patient size. FINDINGS: Anterior circulation: No aneurysm or large vessel occlusion. No hemodynamically significant stenosis. No arteriovenous malf ormation identified. Posterior circulation: No aneurysm or large vessel occlusion. No hemodynamically significant stenosis. No arteriovenous malf ormation identified. 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 IMPRESSION: No significant flow abnormality is detected.
--- NOTE | 2022-04-15 12:01 | RAD REPORT ---
EXAM DESCRIPTION: RAD - Ankle Left 3 View - 04/15/2022 11:56 am CLINICAL HISTORY: PAIN COMPARISON: <Comparisons> FINDINGS/IMPRESSION: No acute fracture. No malalignment. No significant focal degenerative changes. Soft tissue swelling is present laterally.
[2022-04-15 12:08] LABS: SARS-CoV-2 Antigen Rapid Res Negative (Negative)
[2022-04-15] MEDS ORDERED: ACETAMINOPHEN 500 MG TAB PO PRN (12:56)
[2022-04-15] MEDS ORDERED: ONDANSETRON 4 MG/2 ML VIAL IV PRN (12:57)
[2022-04-15 13:31] LABS: Thyroid Stimulating Hormone 0.813 uIU/mL (0.360-3.740)
[2022-04-15 14:53] VITALS: BMI 33.1
[2022-04-15] MEDS ORDERED: HYDROCODONE/APAP 5/325 MG TAB ONE (15:50)
[2022-04-15] MEDS: HYDROCODONE/APAP 5/325 MG TAB PO PRN ×2 (15:51→21:42)
--- NOTE | 2022-04-15 17:02 | RAD REPORT ---
EXAM DESCRIPTION: MRI - Brain Wo Cont - 04/15/2022 4:43 pm CLINICAL HISTORY: r o cva Headache, drowsiness, CVA symptomology COMPARISON: <Comparisons> TECHNIQUE: Multi-sequence, multiplanar MR imaging of the brain was performed without contrast. FINDINGS: No intracranial hemorrhage, hydrocephalus or extra-axial fluid collections. No edema or sh ift of midline structures. No findings to suspect brain mass. DWI is negative for acute CVA. Midline structures are normally formed. Mastoid air cells and paranasal sinuses are clear. IMPRESSION: Negative for acute CVA or other acute intracranial abnormality.
--- NOTE | 2022-04-15 17:19 | P.HP ---
Certification for Inpatient Patient admitted to: Observation With expected LOS: <2 Midnights Patient will require the following post-hospital care: None Practitioner: I am a practitioner with admitting privileges, knowledge of patient current condition, hospital course, and medical plan of care. Services: Services provided to patient in accordance with Admission requirements found in Title 42 Section 412.3 of the Code of Federal Regulations Patient History Date of Service: 04/15/22 Reason for admission: Syncope. Left sided weakness History of Present Illness: Patient is a 41-year-old female with a past medical history significant for seizures, CVA, migraine headache, nicotine dependence, obesity who presents with complaint of syncope. Patient indicated that she does not remember anything that happened until she was in the ambulance. Per medical records patient was at work when she suddenly collapsed. Patient was lowered to the ground and EMS was called. Patient reports associated signs and symptoms of left-sided weakness, headache and dizziness. Patient denies any other signs or symptoms. Symptoms are aggravated or relieved by nothing. Patient was brought to the hospital for medical evaluation. Allergies NK Allergy (Uncoded 08/30/15 10:40) Unknown No Known Allergies Allergy (Uncoded 12/27/16 10:52) Unknown Home Medications: Aspirin [Aspirin EC 81 MG] 81 mg PO DAILY #30 tablet. 11/11/21 Atorvastatin Calcium [Lipitor*] 40 mg PO BEDTIME #30 tab 11/11/21 Clopidogrel Bisulfate [Plavix] 75 mg PO DAILY #30 tablet 11/11/21 Folic Acid 1 mg PO DAILY #30 tablet 11/11/21 - Past Medical/Surgical History -: Tobacco use -: Seizure -: CVA -: Obesity. -: Tubal Ligation - Family History Father -: Cancer Mother -: Hypertension - Social History Smoking Status: Current every day smoker Counseled patient to stop smoking for: less than 10 minutes Smoking therapy provided: Yes Patient receptive to therapy: Yes Alcohol use: No CD- Drugs: No Place of Residence: Home Review of Systems General: Weakness Eyes: As per HPI ENT: Unremarkable Respiratory: Unremarkable Cardiovascular: Unremarkable Gastrointestinal: Unremarkable Genitourinary: Unremarkable Musculoskeletal: Unremarkable Integumentary: Unremarkable Neurological: Weakness, Other (Dizziness. [place]) Lymphatics: Unremarkable Physical Examination - Vital Signs Respirations: 18 Pulse Ox (%): 100 - Physical Exam General: Alert, Oriented x3, Cooperative HEENT: Atraumatic, Normocephalic, PERRLA Neck: Supple, 2+ carotid pulse no bruit, JVD not distended, No Thyromegaly Respiratory: Clear to auscultation bilaterally, Normal air movement Cardiovascular: No edema, Normal pulses, Regular rate/rhythm Capillary refill: <2 Seconds Gastrointestinal: Normal bowel sounds, Soft and benign Musculoskeletal: No clubbing, No swelling, No contractures Integumentary: No rashes, No breakdown, No significant lesion Neurological: Normal gait, Normal speech, Normal tone Lymphatics: No axilla or inguinal lymphadenopathy - Studies Laboratory Data (last 24 hrs) 04/15/22 09:35: WBC 6.40, Hgb 13.8, Hct 39.3, Plt Count 425 H 04/15/22 09:35: Sodium 136, Potassium 3.7, BUN 14, Creatinine 0.63, Glucose 170 H Assessment and Plan - Plan --Syncope. Echocardiogram and carotid Doppler pending. We will get some orthostatic vital signs. Fall precautions. Continue supportive care. --Left-sided weakness. Neurology consulted. Patient had a TNKase. MRI Brain does not indicate any acute intracranial abnormality. We will await further recommendation from neurologist. --History of CVA. Will hold off on blood thinners. Continue statin. --Nicotine dependence. Patient counseled on tobacco cessation. Refuses nicotine patch. --Obesity. Likely secondary to excess calories intake. Patient counseled on weight reduction, diet and exercise therapy. --Migraine headache. Tylenol as needed. --Hyperlipidemia. Continue statin. --History of seizures. Continue home medications when available. Seizure precautions. --DVT prophylaxis with SCDs. Plan to discharge in: 48 Hours - Advance Directives Does patient have a Living Will: No Does patient have a Durable POA for Healthcare: No Physician Review: Patient Assessed, Agree with Above Assessment and Plan Critical Care: No
--- NOTE | 2022-04-15 18:41 | RAD REPORT ---
EXAM DESCRIPTION: US - CP - 04/15/2022 6:31 pm CLINICAL HISTORY: Syncope Headache, drowsiness, syncope COMPARISON: Neck Angio dated 04/15/2022 TECHNIQUE: Real-time sonographic evaluation of both carotid systems was performed. Doppler interroga tion was performed with waveform tracing bilaterally. FINDINGS: Normal high resistance waveforms are noted in both external carotid arteries. The common c arotid arteries and internal carotid arteries show normal low resistance waveforms. No significant plaque formation is seen. Peak systolic and end diastolic velocity values and the ICA/ CCA ratios are in the non-hemodynamically significant range. Antegrade flow seen in both vertebral arteries. IMPRESSION: No significant atherosclerotic changes noted. No evidence of a hemodynamically significant stenosis.
[2022-04-15] MEDS ORDERED: ATORVASTATIN 20 MG TAB PO SCH (21:00)
[2022-04-16 05:04] LABS: Absolute Lymphocytes (CBC) 2.7 K/uL (0.7-4.9); Hematocrit 37.8 % (36.0-45.0); Lymphocytes % 41.1 % (15.3-44.8); MCV 97.6 fL (80-100); MPV 6.3 fL (7.6-11.3); RBC Red Blood Cell Count 3.87 M/uL (3.86-4.86)
[2022-04-16 05:13] LABS: Potassium 3.9 mmol/L (3.5-5.1)
[2022-04-16 07:09] LABS: Specific Gravity 1.012 (1.005-1.030); Urine Bilirubin NEGATIVE (Negative); Urine Blood 3+ (OVER) (Negative); Urine Clarity Clear (Clear); Urine Color Colorless (Yellow); Urine Glucose NEGATIVE (Negative); Urine Mucus Slight /HPF (None Seen); Urine Protein NEGATIVE (Negative); Urine RBC 21-50 /HPF (None Seen); Urine Urobilinogen Normal (Normal); Urine WBC Clump Occasional /HPF (None Seen); Urine pH 5.5 (5.0-7.0)
[2022-04-16] MEDS ORDERED: POTASSIUM CL SA 10 MEQ TAB PO ONE (08:00)
[2022-04-16 08:54] VITALS: O2SAT 100
[2022-04-16] MEDS ORDERED: FOLIC ACID 1 MG TABLET PO SCH (09:00)
[2022-04-16] MEDS ORDERED: ENOXAPARIN 40 MG/0.4 ML SQ SCH (09:00)
[2022-04-16] MEDS: HYDROCODONE/APAP 5/325 MG TAB PO PRN (10:00)
--- NOTE | 2022-04-16 10:54 | EKG ---
Test Date: 2022-04-15 Test Time: 09:27:18 Vinyl Installer: JUAN MEASUREMENT RESULTS: Intervals: Rate: 86 HI: 180 QRSD: 84 QT: 368 QTc: 440 [place]: P: 66 HI: 180 QRS: 65 T: 64 INTERPRETIVE STATEMENTS: Normal sinus rhythm Normal ECG Compared to ECG 11/10/2021 14:27:26 No significant changes Electronically Signed On 04-16-22 10:50:32 CDT by Javier Lee
[2022-04-16] MEDS ORDERED: CLOPIDOGREL 75 MG TABLET PO SCH (11:30)
[2022-04-16] MEDS ORDERED: ASPIRIN 81 MG CHEWABLE TABLET PO SCH (11:30)
--- NOTE | 2022-04-16 11:43 | RAD REPORT ---
EXAM DESCRIPTION: CT - Head Brain Wo Cont - 04/16/2022 11:37 am CLINICAL HISTORY: 24 hours post TNK COMPARISON: Head angio dated 04/15/2022; Ct Stroke Brain Wo Cont dated 04/15/2022; Brain Wo Cont dated TECHNIQUE: All CT scans are performed using dose optimization technique as appropriate and may inclu de automated exposure control or mA/KV adjustment according to patient size. FINDINGS: No intracranial hemorrhage, hydrocephalus or extra-axial fluid collection.No areas of brai n edema or evidence of midline shift. The paranasal sinuses and mastoids are clear. The calvarium is intact. IMPRESSION: No acute intracranial abnormality.
[2022-04-16 13:51] VITALS: TEMP 96.7
[2022-04-16 14:24] VITALS: BP 135/84
--- NOTE | 2022-04-16 14:40 | ECHO ---
HEIGHT: 4 ft 11 in WEIGHT: 165 lb 0 oz DATE OF STUDY: 04/16/[address]: Janelle Vyas 2-DIMENSIONAL: YES M.MODE: YES DOPPLER: YES COLOR FLOW: YES TDS: NO PORTABLE: YES DEFINITY: NO BUBBLE STUDY: NO DIAGNOSIS: SYNCOPE CARDIAC HISTORY: CATHERIZATION: SURGERY: PROSTHETIC VALVE: PACEMAKER: MEASUREMENTS (cm) DIASTOLIC (NORMALS) SYSTOLIC (NORMALS) IVSd 0.7 (0.6-1.2) LA Diam 2.8 (1.9-4.0) LVEF 68% LVIDd 4.2 (3.5-5.7) LVIDs 2.7 (2.0-3.5) %FS 37% LVPWd 1.0 (0.6-1.2) Ao Diam 2.4 (2.0-3.7) 2 DIMENSIONAL ASSESSMENT: RIGHT ATRIUM: NORMAL LEFT ATRIUM: NORMAL RIGHT VENTRICLE: NORMAL LEFT VENTRICLE: NORMAL TRICUSPID VALVE: MITRAL VALVE: NORMAL PULMONIC VALVE: NORMAL AORTIC VALVE: NORMAL PERICARDIAL EFFUSION: NONE AORTIC ROOT: NORMAL LEFT VENTRICULAR WALL MOTION: NORMAL DOPPLER/COLOR FLOW: MILD TRICUSPID REGURGITATION. COMMENTS: NORMAL LEFT VENTRICULAR EJECTION FRACTION 60-65%. NORMAL WALL MOTION. MILD TRICUSPID REGURGITATION. NORMAL DIASTOLIC FUNCTION. TECHNOLOGIST: Charles MORALES
== END 2022-04-16 14:07 | disposition home or self-care (01) | DRG 312 ==
LOC: ER 09:22 → ERHOLD 12:45 → 3RD-ICU 20:51
PROVIDERS: ADMIT Hospitalist; ATTEND Hospitalist
DX: R55 Syncope and collapse (principal); E78.5 Hyperlipidemia, unspecified; F17.210 Nicotine dependence, cigarettes, uncomplicated; E66.9 Obesity, unspecified; G43.909 Migraine, unspecified, not intractable, without status migrainosus; R53.1 Weakness; Z68.33 Body mass index [BMI] 33.0-33.9, adult; Z79.82 Long term (current) use of aspirin; Z86.73 Personal history of transient ischemic attack (TIA), and cerebral infarction without residual deficits; Z79.02 Long term (current) use of antithrombotics/antiplatelets; Z98.51 Tubal ligation status; Z79.899 Other long term (current) drug therapy; Z20.822 Contact with and (suspected) exposure to COVID-19
CPT/HCPCS: 36415; 70450; 70496; 70498; 70551; 71045; 80048; 80061; 81001; 83036; 84439; 84443; 84484; 85025; 87086; 87088; 87811; 92977; 93005; 93306; 93880; 96365; 99285; J3101; Q9967

== ENCOUNTER 2022-05-06 19:26 | Emergency (ER) | payer OTHER, SELFPAY ==
[2022-05-06 20:44] LABS: Absolute Lymphocytes (CBC) 2.4 K/uL (0.7-4.9); Hematocrit 29.1 % (36.0-45.0); Lymphocytes % 34.2 % (15.3-44.8); MCV 95.4 fL (80-100); MPV 6.4 fL (7.6-11.3); RBC Red Blood Cell Count 3.05 M/uL (3.86-4.86)
[2022-05-06 21:09] LABS: Albumin 3.7 g/dL (3.4-5.0); Bilirubin Total 0.1 mg/dL (0.2-1.0); Potassium 3.4 mmol/L (3.5-5.1); Protein, Total 7.6 g/dL (6.4-8.2)
--- NOTE | 2022-05-06 22:01 | ER ---
Nurse's Notes [facility] Name: Mirna Allen Age: 41 yrs Sex: Female : 1980 Arrival Date: 05/06/2022 Time: 19:33 Bed 14 Private MD: Diagnosis: Abnormal uterine and vaginal bleeding, unspecified Presentation: 05/06 19:36 Chief complaint: Heavy vaginal bleeding since 04/15, intermittent headaches x 2 weeks, hb and extreme fatigue x 2-3 days. Coronavirus screen: At this time, the client does not indicate any symptoms associated with coronavirus-19. Ebola Screen: No symptoms or risks identified at this time. Onset of symptoms was April 2022. 19:36 Method Of Arrival: Ambulatory hb 19:36 Acuity: WILLIAM 3 hb 19:38 Initial Sepsis Screen: Does the patient meet any 2 criteria? No. Patient's initial hb sepsis screen is negative. Does the patient have a suspected source of infection? No. Patient's initial sepsis screen is negative. Risk Assessment: Do you want to hurt yourself or someone else? Patient reports no desire to harm self or others. BUS GIRL: 20:15 LMP 04/15/2022 jj7 Historical: - Allergies: 19:38 No Known Allergies; hb - PMHx: 19:38 Migraine; Seizure; hb - PSHx: 19:38 tubal ligation; hb - Immunization history:: Adult Immunizations up to date. - Social history:: Smoking status: Patient denies any tobacco usage or history of. Screenin:10 Abuse screen: Denies threats or abuse. Nutritional screening: No deficits noted. jj7 Tuberculosis screening: No symptoms or risk factors identified. Fall Risk None identified. Assessment: 20:10 General: Appears in no apparent distress. uncomfortable, Behavior is calm, cooperative, jj7 Reports fatigue for STATES SHE HAS BEEN BLEEDING SINCE 04/15 AND HAD BEEN FEELING FATIGUE FOR WEEKS. Pain: Denies pain. : Reports vaginal bleeding that is bright red, with clots, heavy flow. Vital Signs: 19:36 BP 147 / 91; Pulse 99; Resp 16; Temp 98.3; Pulse Ox 100% on R/A; Weight 72.57 kg; hb Height 4 ft. 11 in. (149.86 cm); 20:15 BP 104 / 86; Pulse 93; Resp 17; Pulse Ox 100% ; jj7 21:15 BP 110 / 80; Pulse 91; Resp 17; Pulse Ox 100% ; Pain 0/10; jj7 22:20 BP 108 / 82; Pulse 94; Resp 17; Pulse Ox 100% ; Pain 0/10; jj7 19:36 Body Mass Index 32.32 (72.57 kg, 149.86 cm) ED Course: 19:33 Patient arrived in ED. [facility] 19:38 Triage completed. 19:38 Arm band placed on. 19:55 Rodrigo Thomas PA is PHCP. [facility] 19:55 Diego Topete MD is Attending Physician. [facility] 20:10 Patient has correct armband on for positive identification. Bed in low position. Call j7 light in reach. Side rails up X 1. Adult w/ patient. 20:10 Assist provider with bone marrow aspiration. Inserted saline lock: 18 gauge in right j7 antecubital area, using aseptic technique. 20:34 CMP Sent. jj7 20:34 Type And Screen Sent. jj7 20:34 CBC with Diff Sent. jj7 21:56 Assist provider with pelvic exam: Set up pelvic tray. Performed by Rodrigo HANLEY jj7 Patient tolerated well. 22:00 Julieta Olvera MD is Referral Physician. [facility] 22:28 Patient did not have IV access during this emergency room visit. intact, bleeding jj7 controlled, No redness/swelling at site. Administered Medications: No medications were administered Medication: 20:10 VIS not applicable for this client. jj7 Outcome: 22:00 Discharge ordered by . [facility] 22:28 Discharged to home ambulatory, with significant other. jj7 22:28 Condition: stable 22:28 Discharge instructions given to patient, Instructed on medication usage, Demonstrated understanding of instructions, Prescriptions given X 1. 22:29 Patient left the ED. jj7 Signatures: Rodrigo Thomas PA PA jmm Baxter, Heather, RN RN Mirna Garcia Zay Miranda RN RN jj7
--- NOTE | 2022-05-06 22:01 | EDPHYS ---
Physician Documentation [facility] Name: Mirna Allen Age: 41 yrs Sex: Female : 1980 Arrival Date: 05/06/2022 Time: 19:33 Bed 14 Private MD: ED Physician Diego Topete HPI: 05/06 20:56 This 41 yrs old Female presents to ER via Ambulatory with complaints of jmm Vaginal Bleeding, General Weakness. 20:56 The patient presents with vaginal bleeding that is. Onset: The symptoms/episode jmm began/occurred gradually, 3 week(s) ago. Modifying factors: The symptoms are alleviated by nothing, the symptoms are aggravated by nothing. This is a 41 year old female with a history of migraines, recent cva that presents to the ED with complaints of vaginal bleeding. Beginning earlier this month. Patient does take plavix and aspirin. . EKG MANAGER: 20:15 LMP 04/15/2022 jj7 Historical: - Allergies: 19:38 No Known Allergies; hb - PMHx: 19:38 Migraine; Seizure; hb - PSHx: 19:38 tubal ligation; hb - Immunization history:: Adult Immunizations up to date. - Social history:: Smoking status: Patient denies any tobacco usage or history of. ROS: 20:56 Cardiovascular: Negative for chest pain, palpitations, and edema, Respiratory: Negative jmm for shortness of breath, cough, wheezing, and pleuritic chest pain. 20:56 Constitutional: Positive for fatigue. 20:56 Neuro: Positive for weakness. 20:56 All other systems are negative. Exam: 20:56 Constitutional: This is a well developed, well nourished patient who is awake, alert, jmm and in no acute distress. Head/Face: atraumatic. Eyes: EOMI, no conjunctival erythema appreciated ENT: Moist Mucus Membranes Neck: Trachea midline, Supple Chest/axilla: Normal chest wall appearance and motion. Cardiovascular: Regular rate and rhythm. No edema appreciated Respiratory: Normal respirations, no respiratory distress appreciated Abdomen/GI: Non distended Back: Normal ROM Skin: General appearance color normal 20:56 Musculoskeletal/extremity: ROM: intact in all extremities. 20:56 Skin: Appearance: Color: normal in color. 20:56 Neuro: Orientation: is normal, Mentation: is normal, Memory: is normal. 21:57 : Pelvic Exam: Speculum exam: mild bleeding, blood clots in vaginal vault. [facility] Vital Signs: 19:36 BP 147 / 91; Pulse 99; Resp 16; Temp 98.3; Pulse Ox 100% on R/A; Weight 72.57 kg; hb Height 4 ft. 11 in. (149.86 cm); 20:15 BP 104 / 86; Pulse 93; Resp 17; Pulse Ox 100% ; jj7 21:15 BP 110 / 80; Pulse 91; Resp 17; Pulse Ox 100% ; Pain 0/10; jj7 22:20 BP 108 / 82; Pulse 94; Resp 17; Pulse Ox 100% ; Pain 0/10; jj7 19:36 Body Mass Index 32.32 (72.57 kg, 149.86 cm) hb MDM: 19:56 Patient medically screened. [facility] 21:57 Data reviewed: vital signs, nurses notes. [facility] 21:57 Counseling: I had a detailed discussion with the patient and/or guardian regarding: the [facility] historical points, exam findings, and any diagnostic results supporting the discharge/admit diagnosis, lab results, the need for outpatient follow up, to return to the emergency department if symptoms worsen or persist or if there are any questions or concerns that arise at home. ED course: I discused the patient with Dr. Lau recommends d/ plavix. Continues aspirin. Advised to follow up with carpentry professional for further evaluation. patient otherwise given strct return precautions. patient understood and agrees with the plan of care. . 05/06 20:03 Order name: CBC with Diff; Complete Time: 20:47 [facility] 05/06 20:03 Order name: CMP; Complete Time: 21:19 [facility] 05/06 20:03 Order name: Type And Screen; Complete Time: 21:28 [facility] 05/06 20:03 Order name: Saline Lock; Complete Time: 20:34 [facility] 05/06 20:47 Order name: Pelvic Exam Setup; Complete Time: 21:19 [facility] Administered Medications: No medications were administered Disposition Summary: 05/06/22 22:00 Discharge Ordered Location: Home [facility] Condition: Stable [facility] Diagnosis - Abnormal uterine and vaginal bleeding, unspecified [facility] Followup: [facility] - With: Julieta Olvera MD - When: 1 - 2 days - Reason: Recheck today's complaints, Continuance of care, Re-evaluation by your physician Discharge Instructions: - Discharge Summary Sheet margaux - Abnormal Uterine Bleeding margaux Forms: - Medication Reconciliation Form margaux - Thank You Letter margaux - Antibiotic Education margaux - Prescription Opioid Use margaux Prescriptions: - Ferrous Sulfate 325 mg (65 mg Iron) Oral Tablet - take 1 tablet by ORAL route every 8 hours; 90 tablet; Refills: 0, Product [facility] Selection Permitted Signatures: Dispatcher [employer] Rodrigo Cervantes PA PA Shandra Pate, RN RN hb
[2022-05-08 12:57] VITALS: TEMP 98.3; O2SAT 100
[2022-05-08 13:01] VITALS: BP 108/82
== END 2022-05-06 22:29 | disposition home or self-care (01) ==
LOC: ER 19:26
DX: N93.9 Abnormal uterine and vaginal bleeding, unspecified (principal); R53.1 Weakness; R53.83 Other fatigue
CPT/HCPCS: 36415; 80053; 85025; 86850; 86900; 86901; 99284

== ENCOUNTER 2022-06-07 17:30 | Emergency (ER) | payer OTHER, SELFPAY ==
[2022-06-07] MEDS ORDERED: ONDANSETRON 4 MG/2 ML VIAL ONE (20:10)
[2022-06-07] MEDS ORDERED: MORPHINE 4 MG/ML SYR ONE (20:10)
[2022-06-07 20:37] LABS: Urine Blood 3+ (Negative); Urine Glucose Negative (Negative); Urine Protein Negative (Negative); Urine Specific Gravity >=1.030 (1.005-1.030); Urine pH 5.5 (5.0-7.0)
[2022-06-07 20:47] LABS: Absolute Lymphocytes (CBC) 1.6 K/uL (0.7-4.9); Hematocrit 29.4 % (36.0-45.0); Lymphocytes % 20.6 % (15.3-44.8); MCV 85.8 fL (80-100); MPV 6.2 fL (7.6-11.3); RBC Red Blood Cell Count 3.42 M/uL (3.86-4.86)
[2022-06-07 20:51] LABS: Protime INR 1.12
[2022-06-07] MEDS ORDERED: NA CHLORIDE 0.9% 1,000 ML ONE (20:55)
[2022-06-07 20:59] LABS: ALT/SGPT 86 U/L (12-78); AST/SGOT 42 U/L (15-37); Albumin 4.2 g/dL (3.4-5.0); Alkaline Phosphatase 142 U/L (45-117); BUN Blood Urea Nitrogen 13 mg/dL (7-18); Bicarbonate 26 mmol/L (21-32); Bilirubin Total 0.3 mg/dL (0.2-1.0); Glomerular Filtration Rate 114 ml/min (=/>90); Glucose Level 96 mg/dL (74-106); Lipase 50 U/L (73-393); Potassium 3.4 mmol/L (3.5-5.1); Protein, Total 8.6 g/dL (6.4-8.2); Sodium Level 136 mmol/L (136-145)
[2022-06-07 21:24] LABS: Bilirubin Direct < 0.1 mg/dL (0-0.2)
--- NOTE | 2022-06-07 21:54 | RAD REPORT ---
EXAM DESCRIPTION: US - Pelvis Complete - 06/07/2022 9:41 pm CLINICAL HISTORY: Abdominal pain/vaginal bleeding COMPARISON: 2017 FINDINGS: The uterus measures 9 x 4 x 5 cm. The endometrial stripe measures 2.2 centimeters. A fibro id is not seen. 3.4 centimeter right ovarian cyst. Blood flow is present to the right ovary. Left ovary normal in size and echotexture Right and left adnexal unremarkable No significant free fluid IMPRESSION: Prominence of the endometrium. This may be normal finding related to the menstrual cycle . Pathology such as polyp, neoplasm and hyperplasia can also result in this appearance. Followup ultr asound in a couple months would be helpful for re-evaluation 3.4 centimeter right ovarian cyst
--- NOTE | 2022-06-07 21:54 | RAD REPORT ---
EXAM DESCRIPTION: US - Transvaginal Study Probe - 06/07/2022 9:08 pm CLINICAL HISTORY: Abdominal pain/vaginal bleeding COMPARISON: none FINDINGS: The uterus measures 9 x 4 x 5 cm. The endometrial stripe measures 2.2 centimeters. A fibro id is not seen. 3.4 centimeter right ovarian cyst. Blood flow is present to the right ovary. Left ovary normal in size and echotexture Right and left adnexal unremarkable No significant free fluid IMPRESSION: Prominence of the endometrium. This may be normal finding related to the menstrual cycle . Pathology such as polyp, neoplasm and hyperplasia can also result in this appearance. Followup ult rasound in a couple months would be helpful for re-evaluation 3.4 centimeter right ovarian cyst
--- NOTE | 2022-06-07 22:36 | RAD REPORT ---
EXAM DESCRIPTION: CT - Abdomen Pelvis W Contrast - 06/07/2022 10:18 pm CLINICAL HISTORY: Abdominal pain COMPARISON: Ultrasound June 07, 2022 TECHNIQUE: Computed axial tomography of the abdomen pelvis was obtained. 100 cc Isovue-300 was admin istered intravenously. Oral contrast was not requested which limits evaluation of bowel and appendix All CT scans are performed using dose optimization technique as appropriate and may include automated exposure control or mA/KV adjustment according to patient size. FINDINGS: Fatty liver. Liver is mildly enlarged Spleen, pancreas, and adrenals unremarkable. Small left renal cysts. Tiny nonobstructing right renal calculus Normal appendix. No evidence of diverticulitis. A 3.8 centimeter right ovarian cyst without significant free fluid Thickening of the endometrial stripe cervical nabothian cysts There is no evidence of diverticulitis. Small umbilical hernia IMPRESSION: Mild hepatomegaly with fatty infiltration A 3.8 centimeter right ovarian cyst without significant free fluid Thickening of the endometrial stripe may be related to the normal menstrual cycle. Pathology such as a polyp, neoplasm or endometrial hyperplasia can also result in this appearance. Followup ultrasound in a couple months recommended for re-evaluation
--- NOTE | 2022-06-07 23:18 | ER ---
Nurse's Notes [facility] Name: Mirna Allen Age: 41 yrs Sex: Female : 1980 Arrival Date: 06/07/2022 Time: 17:33 Bed 18 Private MD: Diagnosis: Anemia, unspecified;Abnormal uterine and vaginal bleeding, unspecified Presentation: 06/07 17:39 Chief complaint: Patient states: Vaginal bleeding for 60 days, real heavy with clots ll1 for 4 days. + weak, dizzy. Coronavirus screen: Vaccine status: Patient reports receiving the 2nd dose of the covid vaccine. Client denies travel out of the [place] in the last 14 days. At this time, the client does not indicate any symptoms associated with coronavirus-19. Ebola Screen: Patient denies travel to an Ebola-affected area in the 21 days before illness onset. Initial Sepsis Screen: Does the patient meet any 2 criteria? HR > 90 bpm. No. Patient's initial sepsis screen is negative. Does the patient have a suspected source of infection? Yes: Other: vaginal bleeding. Risk Assessment: Do you want to hurt yourself or someone else? Patient reports no desire to harm self or others. Onset of symptoms was April 07, 2022. 17:39 Method Of Arrival: Ambulatory ll1 17:39 Acuity: WILLIAM 3 ll1 Triage Assessment: 17:41 General: Appears uncomfortable, ill, Behavior is cooperative, appropriate for age. ll1 Pain: Complains of pain in pelvis Pain currently is 10 out of 10 on a pain scale. Quality of pain is described as aching, crampy, throbbing. : Reports vaginal bleeding that is bright red, with clots, heavy flow. 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 - Social history:: Smoking status: Patient reports the use of cigarette tobacco products, smokes one pack cigarettes per day. Screenin:00 Abuse screen: Denies threats or abuse. Denies injuries from another. Nutritional eh3 screening: No deficits noted. Tuberculosis screening: No symptoms or risk factors identified. Fall Risk Fall in past 12 months (25 points). IV access (20 points). Gait- Weak (10 pts.). Total Mayes Fall Scale indicates High Risk Score (45 or more points). Fall prevention measures have been instituted. Side Rails Up X 2 Placed Close to Nursing Station Frequent Obs/Assessments Occuring As available patient and family educated on Fall Prevention Program and Strategies. Assessment: 20:00 General: Appears distressed, uncomfortable, Behavior is cooperative, appropriate for eh3 age, anxious. Pain: Complains of pain in pelvis Pain currently is 10 out of 10 on a pain scale. Neuro: Level of Consciousness is awake, alert, obeys commands, Oriented to person, place, time, situation. Cardiovascular: Capillary refill < 3 seconds Patient's skin is warm and dry. Respiratory: Airway is patent Respiratory effort is even, unlabored, Respiratory pattern is regular, symmetrical. GI: Abdomen is round non-distended. : Urine is blood tinged, Reports vaginal bleeding that is bright red, with clots, heavy flow since 04/15/22. Pt states sometimes it is just spotting, but other times it is very heavy using up to 4-5 overnight pads per day. The current heavy flow started 3 days ago. EENT: No signs and/or symptoms were reported regarding the EENT system. Derm: No signs and/or symptoms reported regarding the dermatologic system. Musculoskeletal: No signs and/or symptoms reported regarding the musculoskeletal system. 21:00 Reassessment: Patient and/or family updated on plan of care and expected duration. Pain eh3 level reassessed. Patient is alert, oriented x 3, equal unlabored respirations, skin warm/dry/pink. 21:49 General: Appears in no apparent distress. comfortable, Behavior is calm, cooperative. tp1 Pain: Complains of pain in pelvis Pain radiates to left leg Pain currently is 8 out of 10 on a pain scale. Quality of pain is described as crampy, Is continuous. Neuro: Level of Consciousness is awake, alert, obeys commands, Oriented to person, place, time, situation. Cardiovascular: Capillary refill < 3 seconds in bilateral fingers Patient's skin is warm and dry. Respiratory: Airway is patent Respiratory effort is even, unlabored. :. : Reports vaginal bleeding has decreased. Derm: Skin is pink, warm \T\ dry. Musculoskeletal: Circulation, motion, and sensation intact. 23:03 Reassessment: Patient appears in no apparent distress at this time. No changes from tp1 previously documented assessment. Patient is alert, oriented x 3, equal unlabored respirations, skin warm/dry/pink. Vital Signs: 17:39 BP 138 / 83; Pulse 98; Resp 17; Temp 97.5; Pulse Ox 100% ; Weight 72.57 kg; Height 4 ll1 ft. 11 in. (149.86 cm); Pain 10/10; 20:00 BP 116 / 72; Pulse 85; Resp 16; Pulse Ox 97% on R/A; eh3 20:02 BP 121 / 71; Pulse 109; Resp 18; Pulse Ox 99% on R/A; eh3 20:04 BP 117 / 76; Pulse 101; Resp 18; Pulse Ox 99% on R/A; eh3 20:04 Temp 98.3(O); eh3 20:30 BP 107 / 59; Pulse 87; Resp 18; Pulse Ox 97% on R/A; eh3 21:00 BP 106 / 67; Pulse 76; Resp 18; Pulse Ox 100% on R/A; eh3 21:51 BP 101 / 61; Pulse 76; Resp 16; Pulse Ox 100% on R/A; tp1 23:06 BP 101 / 50; Pulse 84; Resp 16; Pulse Ox 100% on R/A; tp1 17:39 Body Mass Index 32.32 (72.57 kg, 149.86 cm) ll1 ED Course: 17:33 Patient arrived in ED. as 17:40 Triage completed. ll1 17:42 Arm band placed on. ll1 18:03 Dmitri Slaughter PA is PHCP. cp 18:03 Tico Read MD is Attending Physician. cp 19:50 Andria Rosas RN is Primary Nurse. eh3 20:00 Patient has correct armband on for positive identification. Placed in gown. Bed in low eh3 position. Call light in reach. Side rails up X2. Adult w/ patient. Client placed on continuous cardiac and pulse oximetry monitoring. NIBP monitoring applied. Door closed. Noise minimized. Lights dimmed. Warm blanket given. 20:15 Inserted saline lock: 20 gauge in right antecubital area, using aseptic technique. eh3 Blood collected. 21:48 Assist provider with pelvic exam: Set up pelvic tray. Performed by Dmitri HANLEY tp1 Patient tolerated well. 23:16 Julieta Olvera MD is Referral Physician. cp 23:31 IV discontinued, intact, bleeding controlled, No redness/swelling at site. Pressure tp1 dressing applied. 06/08 01:30 US In Process Unspecified. EDMS 01:30 US In Process Unspecified. EDMS 01:35 CT In Process Unspecified. EDMS Administered Medications: 06/07 20:17 Drug: morphine 4 mg Route: IVP; Infused Over: 4 mins; Site: right antecubital; eh3 21:07 Follow up: Response: Pain is decreased eh3 20:17 Drug: Zofran (Ondansetron) 4 mg Route: IVP; Site: right antecubital; eh3 21:07 Follow up: Response: Nausea is decreased eh3 21:07 Drug: NS 0.9% 1000 ml Route: IV; Rate: 1 bolus; Site: right antecubital; eh3 23:30 Follow up: IV Status: Completed infusion; IV Intake: 1000ml tp1 23:30 Drug: Potassium Effervescent Tablet 50 mEq Route: PO; tp1 23:30 Follow up: Response: Medication administered at discharge. tp1 Medication: 23:30 VIS not applicable for this client. tp1 Intake: 23:30 IV: 1000ml; Total: 1000ml. tp1 Outcome: 23:17 Discharge ordered by . cp 23:30 Discharged to home ambulatory, with family. tp1 23:30 Condition: good 23:30 Discharge instructions given to patient, Instructed on discharge instructions, follow up and referral plans. medication usage, Demonstrated understanding of instructions, follow-up care, medications, Prescriptions given X 2. 23:31 Patient left the ED. tp1 Signatures: Dispatcher [employer] Amanda Watson Corey, PA PA cp Vita Vega RN RN ll1 Elise Schuler RN RN tp1 Andria Rosas RN RN eh3
--- NOTE | 2022-06-07 23:18 | EDPHYS ---
Physician Documentation [facility] Name: Mirna Allen Age: 41 yrs Sex: Female : 1980 Arrival Date: 06/07/2022 Time: 17:33 Bed 18 Private MD: ED Physician Tico Read HPI: 06/07 19:45 This 41 yrs old Female presents to ER via Ambulatory with complaints of cp Vaginal Bleeding. 19:45 The patient presents with vaginal bleeding that is heavy, with clots. Onset: The cp symptoms/episode began/occurred 60 day(s) ago. Associated signs and symptoms: Pertinent positives: cramping, Pertinent negatives: dysuria, fever, vomiting. Severity of symptoms: in the emergency department the symptoms are unchanged, despite home interventions. 19:45 The patient's method of control includes nothing. 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 - Social history:: Smoking status: Patient reports the use of cigarette tobacco products, smokes one pack cigarettes per day. ROS: 19:50 Constitutional: Negative for body aches, chills, fever, poor PO intake. cp 19:50 Cardiovascular: Negative for chest pain. cp 19:50 Respiratory: Negative for cough, shortness of breath, wheezing. 19:50 Abdomen/GI: Positive for abdominal cramps, Negative for vomiting, diarrhea, constipation. 19:50 : Positive for pelvic pain, vaginal bleeding. 19:50 Neuro: Negative for altered mental status, dizziness, headache, syncope, weakness. Exam: 19:55 Constitutional: The patient appears in no acute distress, alert, awake, non-toxic, well cp developed, well nourished, uncomfortable. 19:55 Head/Face: Normocephalic, atraumatic. cp 19:55 Eyes: Periorbital structures: Conjunctiva: normal, no exudate, no injection, Sclera: no appreciated abnormality, Lids and lashes: appear normal, bilaterally. 19:55 ENT: External ear(s): are unremarkable, Nose: is normal, Mouth: Lips: moist, Posterior cp pharynx: Airway: no evidence of obstruction, patent. 19:55 Chest/axilla: Inspection: normal. 19:55 Cardiovascular: Rate: normal, Rhythm: regular, Edema: is not appreciated, JVD: is not appreciated. 19:55 Respiratory: the patient does not display signs of respiratory distress, Respirations: normal, no use of accessory muscles, no retractions, labored breathing, is not present, Breath sounds: are clear throughout, no decreased breath sounds, no stridor, no wheezing. 19:55 Abdomen/GI: Inspection: abdomen appears normal, Bowel sounds: active, all quadrants, Palpation: soft, in all quadrants, moderate abdominal tenderness, in the right lower quadrant and left lower quadrant, rebound tenderness, is not appreciated, voluntary guarding, is elicited in the right lower quadrant and left lower quadrant. 19:55 Back: CVA tenderness, is absent. 19:55 Skin: no rash present. 19:55 Neuro: Orientation: to person, place \T\ time. Mentation: is normal, Motor: moves all fours, strength is normal, Gait: is steady. 22:00 : Pelvic Exam: External exam: is normal, Speculum exam: mild bleeding, no cervicitis, cp os that is closed, discharge, bloody, the nurse was present for the exam. Vital Signs: 17:39 BP 138 / 83; Pulse 98; Resp 17; Temp 97.5; Pulse Ox 100% ; Weight 72.57 kg; Height 4 ll1 ft. 11 in. (149.86 cm); Pain 10/10; 20:00 BP 116 / 72; Pulse 85; Resp 16; Pulse Ox 97% on R/A; eh3 20:02 BP 121 / 71; Pulse 109; Resp 18; Pulse Ox 99% on R/A; eh3 20:04 BP 117 / 76; Pulse 101; Resp 18; Pulse Ox 99% on R/A; eh3 20:04 Temp 98.3(O); eh3 20:30 BP 107 / 59; Pulse 87; Resp 18; Pulse Ox 97% on R/A; eh3 21:00 BP 106 / 67; Pulse 76; Resp 18; Pulse Ox 100% on R/A; eh3 21:51 BP 101 / 61; Pulse 76; Resp 16; Pulse Ox 100% on R/A; tp1 23:06 BP 101 / 50; Pulse 84; Resp 16; Pulse Ox 100% on R/A; tp1 17:39 Body Mass Index 32.32 (72.57 kg, 149.86 cm) ll1 MDM: 18:06 Patient medically screened. cp 20:00 Differential diagnosis: ectopic , molar preganancy, Neoplasm pelvic cp inflammatory disease, ruptured ectopic , uterine fibroids, urinary tract infection, anemia. 23:15 Data reviewed: vital signs, nurses notes, lab test result(s), radiologic studies, CT cp scan, plain films. 23:15 Counseling: I had a detailed discussion with the patient and/or guardian regarding: the cp historical points, exam findings, and any diagnostic results supporting the discharge/admit diagnosis, lab results, radiology results, the need for outpatient follow up, for definitive care, an OB/Gyne specialist, to return to the emergency department if symptoms worsen or persist or if there are any questions or concerns that arise at home. Response to treatment: the patient's symptoms have markedly improved after treatment, Pain improved. H/H stable. VSS. Patient reports vaginal bleeding decreased while in ED. Will discharge to home for continued monitoring. 06/07 19:28 Order name: Basic Metabolic Panel; Complete Time: 21:48 cp 06/07 21:48 Interpretation: Normal except: K 3.4. cp 06/07 19:28 Order name: CBC with Diff; Complete Time: 20:53 cp 06/07 20:53 Interpretation: Normal except: RBC 3.42; HGB 9.7; HCT 29.4; PLT 610; RDW 17.9; MPV 6.2. cp 06/07 19:28 Order name: PT-INR; Complete Time: 20:53 cp 06/07 19:28 Order name: Ptt, Activated; Complete Time: 20:53 cp 06/07 19:28 Order name: LFT's; Complete Time: 21:48 cp 06/07 21:49 Interpretation: AST 42; ALT 86; ALK 142; TP 8.6; GLOB 4.4; A/G 1.0. cp 06/07 19:28 Order name: US Pelvis Complete cp 06/07 19:28 Order name: Lipase; Complete Time: 21:48 cp 06/07 20:37 Order name: Urine Dipstick-Ancillary; Complete Time: 20:53 EDMS 06/07 21:48 Order name: Wet Prep cp 06/07 21:48 Order name: GC (GONORR/CHLAMYDIA) Probe cp 06/07 21:52 Order name: CT Abd/Pelvis - IV Contrast Only cp 06/07 22:20 Order name: Wet Prep EDMS 06/07 23:10 Interpretation: Reviewed. 06/07 19:28 Order name: IV Saline Lock; Complete Time: 20:37 cp 06/07 19:28 Order name: Labs collected and sent; Complete Time: 20:37 cp 06/07 19:28 Order name: NPO; Complete Time: 19:51 cp 06/07 19:28 Order name: Urine Dipstick-Ancillary (obtain specimen); Complete Time: 20:37 cp 06/07 19:28 Order name: Urine Test (obtain specimen); Complete Time: 20:37 cp 06/07 19:38 Order name: Orthostatics; Complete Time: 20:08 cp 06/07 19:50 Order name: Pelvic Exam Setup; Complete Time: 21:07 cp 06/07 21:55 Order name: EDNE 06/07 21:56 Order name: [facility] 06/07 23:10 Interpretation: Report reviewed. 06/07 22:37 Order name: CT EDMS Administered Medications: 20:17 Drug: morphine 4 mg Route: IVP; Infused Over: 4 mins; Site: right antecubital; eh3 21:07 Follow up: Response: Pain is decreased eh3 20:17 Drug: Zofran (Ondansetron) 4 mg Route: IVP; Site: right antecubital; eh3 21:07 Follow up: Response: Nausea is decreased eh3 21:07 Drug: NS 0.9% 1000 ml Route: IV; Rate: 1 bolus; Site: right antecubital; eh3 23:30 Follow up: IV Status: Completed infusion; IV Intake: 1000ml tp1 23:30 Drug: Potassium Effervescent Tablet 50 mEq Route: PO; tp1 23:30 Follow up: Response: Medication administered at discharge. tp1 Disposition: 06/08 14:17 Co-signature as Attending Physician, Tico Read MD I agree with the assessment and kdr plan of care. Disposition Summary: 06/07/22 23:17 Discharge Ordered Location: Home cp Problem: an ongoing problem cp Symptoms: have improved cp Condition: Stable cp Diagnosis - Anemia, unspecified cp - Abnormal uterine and vaginal bleeding, unspecified cp Followup: cp - With: Julieta Olvera MD - When: 2 - 3 days - Reason: Recheck today's complaints Discharge Instructions: - Discharge Summary Sheet cp - Abnormal Uterine Bleeding cp - Anemia cp - Iron-Rich Diet cp - Dysfunctional Uterine Bleeding cp Forms: - Medication Reconciliation Form cp - Thank You Letter cp - Antibiotic Education cp - Prescription Opioid Use cp Prescriptions: - Ferrous Sulfate 325 mg (65 mg Iron) Oral Tablet - take 1 tablet by ORAL route every 12 hours; 30 tablet; Refills: 0, Product cp Selection Permitted - Ibuprofen 800 mg Oral Tablet - take 1 tablet by ORAL route every 8 hours As needed take with food; 30 tablet; cp Refills: 0, Product Selection Permitted Signatures: Dispatcher [employer] EDTico Vu MD MD [facility] Dmitri Slaughter PA PA Vita John RN RN ll1 Elise Schuler RN RN tp1 Andria Rosas RN RN eh3
[2022-06-07] MEDS ORDERED: POTASSIUM 25 MEQ EFFERV TAB ONE (23:24)
[2022-06-07 23:40] VITALS: TEMP 98.3
[2022-06-07 23:43] VITALS: O2SAT 100
[2022-06-07 23:45] VITALS: BP 101/50
[2022-06-10 20:27] LABS: C.trachomatis RNA,TMA Not Detected (Not Detected)
== END 2022-06-07 23:31 | disposition home or self-care (01) ==
LOC: ER 17:30
DX: D64.9 Anemia, unspecified (principal); F17.210 Nicotine dependence, cigarettes, uncomplicated
CPT/HCPCS: 36415; 74177; 76830; 76856; 80048; 80076; 81003; 83690; 85025; 85610; 85730; 87210; 87490; 87590; 96361; 96374; 96375; 99284; J2405; J7030; Q9967

== ENCOUNTER 2022-12-27 19:23 | Emergency (ER) | payer SELFPAY ==
--- NOTE | 2022-12-27 20:14 | EDPHYS ---
Physician Documentation [facility] Name: Mirna Allen Age: 42 yrs Sex: Female : 1980 Arrival Date: 12/27/2022 Time: 19:23 Bed 10 Private MD: ED Physician Chalo Lopez HPI: 12/27 20:11 This 42 yrs old Female presents to ER via Unassigned with complaints of Ear snw Pain, Headache. 20:11 This 42 yrs old Female presents to ER via Unassigned with complaints of Ear snw Pain, Headache. 20:11 The patient presents with swelling and tenderness to left ear, + tug test, tender snw anterior cervical lymph nodes. Onset: The symptoms/episode began/occurred 2 week(s) ago, and became worse 2 day(s) ago. Associated signs and symptoms: Pertinent positives: muffled hearing, sore throat. Severity of symptoms: At their worst the symptoms were moderate severe. The patient has not experienced similar symptoms in the past. It is unknown whether or not the patient has recently seen a physician. 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 - Social history:: Smoking status: Patient reports the use of cigarette tobacco products, smokes one-half pack cigarettes per day. ROS: 20:11 Constitutional: Negative for fever, chills, and weight loss, Eyes: Negative for injury, snw pain, redness, and discharge, Neck: Negative for injury, pain, and swelling, Cardiovascular: Negative for chest pain, palpitations, and edema, Respiratory: Negative for shortness of breath, cough, wheezing, and pleuritic chest pain, Abdomen/GI: Negative for abdominal pain, nausea, vomiting, diarrhea, and constipation, Back: Negative for injury and pain, : Negative for injury, bleeding, discharge, and swelling, MS/Extremity: Negative for injury and deformity, Skin: Negative for injury, rash, and discoloration, Neuro: Negative for headache, weakness, numbness, tingling, and seizure, Psych: Negative for depression, anxiety, suicide ideation, homicidal ideation, and hallucinations. 20:11 ENT: Positive for ear pain, sore throat. Exam: 20:09 Constitutional: This is a well developed, well nourished patient who is awake, alert, snw and in no acute distress. Head/Face: Normocephalic, atraumatic. Eyes: Pupils equal round and reactive to light, extra-ocular motions intact. Lids and lashes normal. Conjunctiva and sclera are non-icteric and not injected. Cornea within normal limits. Periorbital areas with no swelling, redness, or edema. Chest/axilla: Normal chest wall appearance and motion. Nontender with no deformity. No lesions are appreciated. Cardiovascular: Regular rate and rhythm with a normal S1 and S2. No gallops, murmurs, or rubs. Normal PMI, no JVD. No pulse deficits. Respiratory: Lungs have equal breath sounds bilaterally, clear to auscultation and percussion. No rales, rhonchi or wheezes noted. No increased work of breathing, no retractions or nasal flaring. Abdomen/GI: Soft, non-tender, with normal bowel sounds. No distension or tympany. No guarding or rebound. No evidence of tenderness throughout. Back: No spinal tenderness. No costovertebral tenderness. Full range of motion. Skin: Warm, dry with normal turgor. Normal color with no rashes, no lesions, and no evidence of cellulitis. MS/ Extremity: Pulses equal, no cyanosis. Neurovascular intact. Full, normal range of motion. Neuro: Awake and alert, GCS 15, oriented to person, place, time, and situation. Cranial nerves II-XII grossly intact. Motor strength 5/5 in all extremities. Sensory grossly intact. Cerebellar exam normal. Normal gait. 20:09 ENT: External ear(s): are unremarkable, Ear canal(s): swelling, that is moderate, of the left canal, TM's: not visable, left 2nd to edema, Examination of the other ear shows no obvious abnormality, Nose: is normal, Mouth: is normal, Posterior pharynx: erythema, that is mild, Voice: is normal. 20:09 Neck: External neck: is normal, Lymph nodes: lymphadenopathy is appreciated, anterior cervical nodes, tender to left. Vital Signs: 20:33 BP 142 / 94; Pulse 99; Resp 17 S; Temp 100.1(O); Pulse Ox 99% on R/A; Weight 68.04 kg lg3 (R); Height 4 ft. 11 in. (R); 20:33 Body Mass Index 30.30 (68.04 kg, 149.86 cm) lg3 MDM: 20:09 Differential diagnosis: otitis media, otitis externa, ruptured TM, foreign body, acute snw otalgia. Data reviewed: vital signs, nurses notes. Counseling: I had a detailed discussion with the patient and/or guardian regarding: the historical points, exam findings, and any diagnostic results supporting the discharge/admit diagnosis, the need for outpatient follow up, for definitive care, an ENT specialist. Special discussion: Based on the history and exam findings, there is no indication for further emergent testing or inpatient evaluation. I discussed with the patient/guardian the need to see the ENT specialist for further evaluation of the symptoms. I discussed with the patient/guardian the need to see the primary care provider for further evaluation of the symptoms. 20:14 Patient medically screened. snw Administered Medications: 21:03 Drug: Yunsbcgf-Zcfljbpzj-OS Otic Drops 4 drops Route: Otic; Site: both ears; kd3 21:03 Drug: Hydrocodone-Acetaminophen PO (7.5 mg-325 mg) 1 tabs Route: PO; kd3 21:04 Follow up: Response: No adverse reaction kd3 21:03 Drug: Rocephin (cefTRIAXone) IM 1 grams Route: IM; Site: right gluteus; kd3 21:04 Follow up: Response: No adverse reaction kd3 21:03 Drug: predniSONE PO 20 mg Route: PO; kd3 21:05 Follow up: Response: No adverse reaction kd3 21:03 Drug: Famotidine PO 20 mg Route: PO; kd3 21:05 Follow up: Response: No adverse reaction kd3 Disposition Summary: 12/27/22 20:14 Discharge Ordered Location: Home snw Condition: Stable snw Diagnosis - Acute serous otitis media, right ear snw - Unspecified otitis externa, left ear snw Followup: snw - With: Emergency Department - When: As needed - Reason: Worsening of condition Followup: snw - With: Private Physician - When: 1 - 2 days - Reason: Recheck today's complaints, Continuance of care, Re-evaluation by your physician Discharge Instructions: - Discharge Summary Sheet snw - Ear Drops, Adult snw - Otitis Externa snw - Form - Blood Pressure Record Sheet snw - How to Take Your Blood Pressure snw Forms: - Medication Reconciliation Form snw - Thank You Letter snw - Antibiotic Education snw - Prescription Opioid Use snw Prescriptions: - Augmentin 875-125 mg Oral Tablet - take 1 tablet by ORAL route every 12 hours for 10 days; 20 tablet; Refills: 0, snw Product Selection Permitted - Cortisporin-TC 3.3-3-10-0.5 mg/mL Otic drops,suspension - instill 4 drops by OTIC route every 6 hours left ear canal; 1 unit; Refills: 0, snw Product Selection Permitted - Tramadol 50 mg Oral Tablet - take 1 tablet by ORAL route every 8 hours as needed; 12 tablet; Refills: 0, snw Product Selection Permitted - Prednisone 20 mg Oral Tablet - take 2 tablets by ORAL route once daily for 5 days; 10 tablet; Refills: 0, snw Product Selection Permitted Signatures: Eulalia Layton, PROJECT FINANCIAL ANALYST-C PROJECT FINANCIAL ANALYST-Csnw Tiffanie Rangel, RN RN lg3 Olena Lopez, RN RN kd3
[2022-12-27] MEDS ORDERED: NEOMY/POLY/HC 1% OTIC DROPS ONE (20:57)
[2022-12-27] MEDS ORDERED: HYDROCODONE/APAP 7.5/325 MG TAB ONE (20:58)
[2022-12-27] MEDS ORDERED: CEFTRIAXONE 1000 MG/VIAL ONE (20:58)
[2022-12-27] MEDS ORDERED: FAMOTIDINE 20 MG TAB ONE (20:58)
[2022-12-27] MEDS ORDERED: predniSONE 20 MG TAB ONE (20:58)
[2022-12-27] MEDS ORDERED: LIDOCAINE 1% MPF 5 ML VIAL ONE (20:59)
--- NOTE | 2022-12-27 21:16 | ER ---
Nurse's Notes [facility] Name: Mirna Allen Age: 42 yrs Sex: Female : 1980 Arrival Date: 12/27/2022 Time: 19:23 Bed 10 Private MD: Diagnosis: Acute serous otitis media, right ear;Unspecified otitis externa, left ear Presentation: 12/27 20:33 Chief complaint: Patient states: left ear pain [id number]. Coronavirus screen: Client lg3 denies travel out of the [place] in the last 14 days. At this time, the client does not indicate any symptoms associated with coronavirus-19. Ebola Screen: No symptoms or risks identified at this time. Initial Sepsis Screen: Does the patient meet any 2 criteria? No. Patient's initial sepsis screen is negative. Does the patient have a suspected source of infection? No. Patient's initial sepsis screen is negative. Risk Assessment: Do you want to hurt yourself or someone else? Patient reports no desire to harm self or others. Onset of symptoms is unknown. 20:33 Method Of Arrival: Ambulatory lg3 20:33 Acuity: WILLIAM 4 lg3 Triage Assessment: 20:33 General: Appears in no apparent distress. uncomfortable, Behavior is calm, cooperative. lg3 Pain: Complains of pain in left ear. EENT: No deficits noted. Neuro: No deficits noted. Kirk Agitation-Sedation Scale (RASS): 0 - Alert and Calm Level of Consciousness is awake, alert, obeys commands, Oriented to person, place, time, situation. Cardiovascular: No deficits noted. Respiratory: No deficits noted. Airway is patent Respiratory effort is even, unlabored, Respiratory pattern is regular, symmetrical. GI: No deficits noted. No signs and/or symptoms were reported involving the gastrointestinal system. : No deficits noted. No signs and/or symptoms were reported regarding the genitourinary system. Derm: No deficits noted. No signs and/or symptoms reported regarding the dermatologic system. Skin is intact, Skin is dry, Skin is normal, Skin temperature is warm. Musculoskeletal: No deficits noted. No signs and/or symptoms reported regarding the musculoskeletal system. Circulation, motion, and sensation intact. Range of motion: intact in all extremities. 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 - Social history:: Smoking status: Patient reports the use of cigarette tobacco products, smokes one-half pack cigarettes per day. Screenin:06 [facility] ED Fall Risk Assessment (Adult) History of falling in the last 3 months, kd3 including since admission No falls in past 3 months (0 pts) Confusion or Disorientation No (0 pts) Intoxicated or Sedated No (0 pts) Impaired Gait No (0 pts) Mobility Assist Device Used No (0 pt) Altered Elimination No (0 pt) Score/Fall Risk Level 0 - 2 = Low Risk Maintained a safe environment. Abuse screen: Denies threats or abuse. Denies injuries from another. Nutritional screening: No deficits noted. Tuberculosis screening: No symptoms or risk factors identified. Assessment: 21:05 General: Appears uncomfortable, Behavior is calm, cooperative. Pain: Complains of pain kd3 in left ear. Neuro: Level of Consciousness is awake, alert, obeys commands, Oriented to person, place, time, situation. Cardiovascular: Patient's skin is warm and dry. Respiratory: Airway is patent Trachea midline Respiratory effort is even, unlabored, Respiratory pattern is regular, symmetrical. Vital Signs: 20:33 BP 142 / 94; Pulse 99; Resp 17 S; Temp 100.1(O); Pulse Ox 99% on R/A; Weight 68.04 kg lg3 (R); Height 4 ft. 11 in. (R); 20:33 Body Mass Index 30.30 (68.04 kg, 149.86 cm) lg3 ED Course: 19:24 Patient arrived in ED. mr 19:48 Eulalia Layton [facility]-C [facility]. snw 19:48 Chalo Lopez MD is Attending Physician. snw 20:33 Triage completed. lg3 20:33 Arm band placed on right wrist. lg3 21:03 Olena Lopez, RN is Primary Nurse. kd3 21:06 Patient has correct armband on for positive identification. kd3 21:06 No provider procedures requiring assistance completed. Patient did not have IV access kd3 during this emergency room visit. Administered Medications: 21:03 Drug: Syehmahg-Igkxtbueg-VQ Otic Drops 4 drops Route: Otic; Site: both ears; kd3 21:03 Drug: Hydrocodone-Acetaminophen PO (7.5 mg-325 mg) 1 tabs Route: PO; kd3 21:04 Follow up: Response: No adverse reaction kd3 21:03 Drug: Rocephin (cefTRIAXone) IM 1 grams Route: IM; Site: right gluteus; kd3 21:04 Follow up: Response: No adverse reaction kd3 21:03 Drug: predniSONE PO 20 mg Route: PO; kd3 21:05 Follow up: Response: No adverse reaction kd3 21:03 Drug: Famotidine PO 20 mg Route: PO; kd3 21:05 Follow up: Response: No adverse reaction kd3 Medication: 21:06 VIS not applicable for this client. kd3 Outcome: 20:14 Discharge ordered by . deana 21:06 Discharged to home ambulatory. kd3 21:06 Condition: stable 21:06 Discharge instructions given to patient, Instructed on discharge instructions, follow up and referral plans. Demonstrated understanding of instructions, follow-up care, medications. 21:16 Patient left the ED. kd3 Signatures: Eulalia Layton, MURIEL-C QUALITY CONTROL CHEMIST-Carla Aguirre Lacie RN RN lg3 Olena Lopez RN RN kd3
[2022-12-27 21:30] VITALS: BP 142/94; TEMP 100.1; O2SAT 99
== END 2022-12-27 21:16 | disposition home or self-care (01) ==
LOC: ER 19:23
DX: H60.92 Unspecified otitis externa, left ear (principal); H65.01 Acute serous otitis media, right ear
CPT/HCPCS: J0696; J2001; J7512

== ENCOUNTER 2023-01-24 07:45 | Emergency (ER) | payer SELFPAY ==
[2023-01-24 08:23] LABS: Absolute Lymphocytes (CBC) 2.1 K/uL (0.7-4.9); Hematocrit 39.3 % (36.0-45.0); Lymphocytes % 31.4 % (15.3-44.8); MCV 95.7 fL (80-100); MPV 6.6 fL (7.6-11.3); RBC Red Blood Cell Count 4.11 M/uL (3.86-4.86)
[2023-01-24 08:40] LABS: Albumin 3.7 g/dL (3.4-5.0); Bilirubin Total 0.2 mg/dL (0.2-1.0); Potassium 3.3 mEq/L (3.5-5.1); Protein, Total 7.7 g/dL (6.4-8.2)
[2023-01-24] MEDS ORDERED: NA CHLORIDE 0.9% 1,000 ML ONE (08:40)
--- NOTE | 2023-01-24 08:58 | RAD REPORT ---
EXAM DESCRIPTION: CT - Head Brain Wo Cont - 01/24/2023 8:34 am CLINICAL HISTORY: VISUAL DISTURBANCES COMPARISON: Head Brain Wo Cont dated 04/16/2022; Head angio dated 04/15/2022 TECHNIQUE: Noncontrast head CT images ad were obtained without IV contrast. Multiplanar reformats we re generated and reviewed. All CT scans are performed using dose optimization technique as appropriate and may include automated exposure control or mA/KV adjustment according to patient size. FINDINGS: No intracranial hemorrhage, mass, or edema. Midline structures are unremarkable. Normal ventricular caliber for age. Perea-white matter differentiation is preserved, without evidence of acute infarct. No abnormal extra- axial fluid collections. Mastoid air cells and visualized portions of the paranasal sinuses are clear. No acute bony findings. IMPRESSION: No evidence of an acute intracranial process.
--- NOTE | 2023-01-24 09:05 | RAD REPORT ---
EXAM DESCRIPTION: US - Abdomen Exam Limited - 01/24/2023 8:45 am CLINICAL HISTORY: ABD PAIN COMPARISON: Abdomen Pelvis W Contrast dated 06/07/2022 TECHNIQUE: Sonographic grayscale and color flow images of the right upper abdominal quadrant were obtained. FINDINGS: The gallbladder demonstrates no gallstones. No pericholecystic fluid or gallbladder wall t hickening. The common bile duct is normal measuring 7 millimeter proximally. The liver demonstrates no findings of intrahepatic biliary dilatation. Diffuse hepatic parenchymal hy perechogenicity suggesting steatosis, with geographic subcapsular region of fatty sparing adjacent to the liver hilum. IMPRESSION: No acute gallbladder findings. Nonspecific prominence of the common bile duct, measuring up to 7 millimeter. Please correlate clinic ally and with bilirubin levels. Diffuse hepatic steatosis with focal fatty sparing adjacent to the liver hilum.
[2023-01-24 09:55] LABS: Specific Gravity 1.025 (1.005-1.030); Urine Bacteria None Seen /HPF (<20); Urine Bilirubin NEGATIVE (Negative); Urine Blood Negative (Negative); Urine Clarity Clear (Clear); Urine Color Yellow (Yellow); Urine Glucose NEGATIVE (Negative); Urine Mucus 2+ /HPF (None Seen); Urine Protein TRACE (Negative); Urine RBC <5 /HPF (None Seen); Urine Urobilinogen Normal (Normal); Urine pH 5.5 (5.0-7.0)
[2023-01-24 09:58] LABS: Specific Gravity 1.025 (1.005-1.030)
--- NOTE | 2023-01-24 11:07 | ER ---
Nurse's Notes [facility] Name: Mirna Allen Age: 42 yrs Sex: Female : 1980 Arrival Date: 01/24/2023 Time: 07:45 Bed 7 Private MD: Diagnosis: Upper abdominal pain, unspecified;Diarrhea, unspecified;Weakness Presentation: 01/24 07:51 Chief complaint: Patient states: upper ABD pain, blurred vision, dizziness, dry mouth, vg1 and Left arm 'shakiness' that began about an hour ago. Also stated nausea. Coronavirus screen: Vaccine status: Patient reports receiving the 2nd dose of the covid vaccine. Client denies travel out of the [place] in the last 14 days. Ebola Screen: Patient negative for fever greater than or equal to 101.5 degrees Fahrenheit, and additional compatible Ebola Virus Disease symptoms Patient denies exposure to infectious person. Patient denies travel to an Ebola-affected area in the 21 days before illness onset. Initial Sepsis Screen: Does the patient meet any 2 criteria? HR > 90 bpm. Does the patient have a suspected source of infection? No. Patient's initial sepsis screen is negative. Risk Assessment: Do you want to hurt yourself or someone else? Patient reports no desire to harm self or others. Onset of symptoms was January 24, 2023. 07:51 Method Of Arrival: Ambulatory vg1 07:51 Acuity: WILLIAM 3 vg1 Triage Assessment: 07:53 Pain: Complains of pain in right upper quadrant and left upper quadrant Pain currently vg1 is 8 out of 10 on a pain scale. Pain began 1 hour ago. Neuro: Level of Consciousness is awake, alert, obeys commands, Oriented to person, place, time, situation. Cardiovascular: Patient's skin is warm and dry. Respiratory: Airway is patent Respiratory effort is even, unlabored. GI: Reports diarrhea, nausea, Patient currently denies vomiting. Musculoskeletal: Range of motion: intact in all extremities. 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 - Social history:: Smoking status: Patient reports the use of cigarette tobacco products, smokes one pack cigarettes per day. Screenin:55 [facility] ED Fall Risk Assessment (Adult) History of falling in the last 3 months, ko1 including since admission No falls in past 3 months (0 pts) Confusion or Disorientation No (0 pts) Intoxicated or Sedated No (0 pts) Impaired Gait No (0 pts) Mobility Assist Device Used No (0 pt) Altered Elimination No (0 pt) Score/Fall Risk Level 0 - 2 = Low Risk Oriented to surroundings, Maintained a safe environment, Educated pt \T\ family on fall prevention, incl call for assistance when getting out of bed, Assessed \T\ reinforced patient's understanding of fall precautions, Provided non-skid footwear, Hourly rounding (assess needs \T\ fall precautionary measures) done, Used ambulatory aids as needed (educated on \T\ assisted with), Used gait belt as appropriate. Abuse screen: Denies threats or abuse. Denies injuries from another. Nutritional screening: No deficits noted. Tuberculosis screening: No symptoms or risk factors identified. Assessment: 08:10 General: Appears in no apparent distress. uncomfortable, Behavior is calm, cooperative, ko1 appropriate for age. Pain: Complains of pain in epigastric area and left arm and abdomen and left upper quadrant and right upper quadrant. Neuro: No deficits noted. Cardiovascular: No deficits noted. Respiratory: No deficits noted. GI: Reports lower abdominal pain, upper abdominal pain. : No deficits noted. EENT: No deficits noted. Derm: No deficits noted. Musculoskeletal: No deficits noted. Vital Signs: 07:51 BP 114 / 102; Pulse 94; Resp 16; Temp 98.1; Pulse Ox 100% ; Weight 74.84 kg; Height 4 vg1 ft. 11 in. ; Pain 8/10; 08:10 BP 135 / 85; Pulse 83; Resp 16; Pulse Ox 98% ; ko1 09:27 BP 114 / 75; Pulse 73; Resp 15; Pulse Ox 99% ; ko1 10:32 BP 118 / 74; Pulse 75; Resp 16; Pulse Ox 99% ; ko1 07:51 Body Mass Index 33.33 (74.84 kg, 149.86 cm) vg1 07:51 Pain Scale: Adult vg1 ED Course: 07:46 Patient arrived in ED. ts1 07:53 Triage completed. vg1 07:53 Arm band placed on. vg1 07:59 Ambreen Riggs FNP-C is PSYCHIATRICP. kb 08:00 Diego Topete MD is Attending Physician. kb 08:04 Abigail Valdez, RN is Primary Nurse. ko1 08:15 Inserted saline lock: 20 gauge in right antecubital area, using aseptic technique. ko1 Blood collected. 08:20 Troponin HS Sent. ko1 08:21 CBC with Diff Sent. ko1 08:21 CMP Sent. ko1 08:21 Lipase Sent. ko1 08:36 CT Head Brain wo Cont In Process Unspecified. EDMS 08:47 Abdomen Limited US In Process Unspecified. EDMS 08:55 Patient has correct armband on for positive identification. Placed in gown. Bed in low ko1 position. Call light in reach. Side rails up X 1. Client placed on continuous cardiac and pulse oximetry monitoring. NIBP monitoring applied. electromechanical equipment tester on. Door closed. Noise minimized. Lights dimmed. Warm blanket given. 09:47 Test, Urine Sent. ko1 09:47 Urinalysis w/ reflexes Sent. ko1 10:06 Troponin High Sensitivity Sent. ko1 10:32 No provider procedures requiring assistance completed. ko1 11:12 IV discontinued, intact, bleeding controlled, No redness/swelling at site. Pressure ko1 dressing applied. Administered Medications: 08:53 Drug: NS 0.9% IV 1000 ml Route: IV; Rate: 1 bolus; Site: right antecubital; ko1 Medication: 08:55 VIS not applicable for this client. ko1 Outcome: 11:07 Discharge ordered by . kb 11:12 Discharged to home ambulatory. ko1 11:12 Condition: improved 11:12 Discharge instructions given to patient, Instructed on discharge instructions, follow up and referral plans. Demonstrated understanding of instructions, follow-up care, Prescriptions given X 11:17 Patient left the ED. ko1 Signatures: Dispatcher [employer] EDCO Ambreen Riggs FNP-C FNP-Jess Rodriguez, RN RN vg1 Abigail Valdez, RN RN ko1 Shellie Avina, MARIA ANTONIA PAS ts1
--- NOTE | 2023-01-24 11:07 | EDPHYS ---
Physician Documentation [facility] Name: Mirna Allen Age: 42 yrs Sex: Female : 1980 Arrival Date: 01/24/2023 Time: 07:45 Bed 7 Private MD: ED Physician Diego Topete HPI: 01/24 08:06 This 42 yrs old Female presents to ER via Ambulatory with complaints of kb Blurred Vision, abd pain, diarrhea. 08:06 The patient presents with abdominal pain in the upper abdomen. Onset: The kb symptoms/episode began/occurred yesterday. The symptoms do not radiate. Associated signs and symptoms: Pertinent positives: diarrhea. The symptoms are described as constant. Modifying factors: The symptoms are alleviated by nothing, the symptoms are aggravated by pressure. Severity of pain: At its worst the pain was mild moderate in the emergency department the pain is unchanged. The patient has not experienced similar symptoms in the past. The patient has not recently seen a physician. Pt reports upper abd pain and diarrhea that started yesterday. Reports blurred vision, shakiness to left arm and dry mouth that started this morning. . 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 - Social history:: Smoking status: Patient reports the use of cigarette tobacco products, smokes one pack cigarettes per day. ROS: 08:06 Constitutional: Negative for fever, chills, and weight loss. kb 08:06 Eyes: Positive for blurry vision. 08:06 Abdomen/GI: Positive for abdominal pain, diarrhea, Negative for nausea and vomiting. 08:06 Neuro: Positive for tremor, of the left arm. 08:06 All other systems are negative. Exam: 08:06 Constitutional: This is a well developed, well nourished patient who is awake, alert, kb and in no acute distress. Head/Face: Normocephalic, atraumatic. Eyes: Pupils equal round and reactive to light, extra-ocular motions intact. Lids and lashes normal. Conjunctiva and sclera are non-icteric and not injected. Cornea within normal limits. Periorbital areas with no swelling, redness, or edema. ENT: Moist Mucous membranes Cardiovascular: Regular rate and rhythm with a normal S1 and S2. No gallops, murmurs, or rubs. No pulse deficits. Respiratory: Respirations even and unlabored. No increased work of breathing. Talking in full sentences Skin: Warm, dry with normal turgor. Normal color. MS/ Extremity: Pulses equal, no cyanosis. Neurovascular intact. Full, normal range of motion. Neuro: Awake and alert, GCS 15, oriented to person, place, time, and situation. Moves all extremities. Normal gait. 08:06 Abdomen/GI: Inspection: abdomen appears normal, Bowel sounds: normal, Palpation: soft, in all quadrants, mild abdominal tenderness, in the epigastric area, right upper quadrant and left upper quadrant. 09:10 ECG was reviewed by the Attending Physician. kb Vital Signs: 07:51 BP 114 / 102; Pulse 94; Resp 16; Temp 98.1; Pulse Ox 100% ; Weight 74.84 kg; Height 4 vg1 ft. 11 in. ; Pain 8/10; 08:10 BP 135 / 85; Pulse 83; Resp 16; Pulse Ox 98% ; ko1 09:27 BP 114 / 75; Pulse 73; Resp 15; Pulse Ox 99% ; ko1 10:32 BP 118 / 74; Pulse 75; Resp 16; Pulse Ox 99% ; ko1 07:51 Body Mass Index 33.33 (74.84 kg, 149.86 cm) vg1 07:51 Pain Scale: Adult vg1 MDM: 08:00 Patient medically screened. kb 08:08 Differential diagnosis: coronary artery disease, cholecystitis, Cholelithiasis, kb myocardia ischemia or infarction, non-specific abd pain, pancreatitis. Data reviewed: vital signs, nurses notes. 11:05 Management of patient was discussed with the following: Dr Topete, who evaluated pt as kb well. In agreement with workup. After normal workup, discussed with Dr Topete again who recommends outpatient follow up. Pt in agreement with outpatient follow up. Will call Dr Lau tomorrow. Counseling: I had a detailed discussion with the patient and/or guardian regarding: the historical points, exam findings, and any diagnostic results supporting the discharge/admit diagnosis, lab results, radiology results, the need for outpatient follow up, a family practitioner, a neurologist, to return to the emergency department if symptoms worsen or persist or if there are any questions or concerns that arise at home. 01/24 08:04 Order name: CBC with Diff; Complete Time: 08:32 kb 01/24 08:04 Order name: CMP; Complete Time: 08:46 kb 01/24 08:04 Order name: Lipase; Complete Time: 08:46 kb 01/24 08:04 Order name: Test, Urine; Complete Time: 10:01 kb 01/24 08:04 Order name: Urinalysis w/ reflexes; Complete Time: 09:56 kb 01/24 08:08 Order name: Troponin HS; Complete Time: 08:46 kb 01/24 09:56 Order name: Troponin High Sensitivity; Complete Time: 11:00 kb 01/24 08:04 Order name: Abdomen Limited US; Complete Time: 09:10 kb 01/24 08:04 Order name: CT Head Brain wo Cont; Complete Time: 09:10 kb 01/24 08:08 Order name: EKG; Complete Time: 08:09 kb 01/24 08:04 Order name: IV Saline Lock; Complete Time: 08:21 kb 01/24 08:04 Order name: Labs collected and sent; Complete Time: 08:21 kb 01/24 08:05 Order name: Visual Acuity; Complete Time: 08:55 kb 01/24 08:08 Order name: EKG - Nurse/Tech; Complete Time: 08:53 kb EC:10 Rate is 72 beats/min. Rhythm is regular. QRS [place] is Normal. UT interval is normal at kb 196 msec. QRS interval is normal at 90 msec. QT interval is normal at 438 msec. Administered Medications: 08:53 Drug: NS 0.9% IV 1000 ml Route: IV; Rate: 1 bolus; Site: right antecubital; ko1 Disposition Summary: 01/24/23 11:07 Discharge Ordered Location: Home kb Condition: Stable kb Diagnosis - Upper abdominal pain, unspecified kb - Diarrhea, unspecified kb - Weakness kb Followup: kb - With: Emergency Department - When: As needed - Reason: Worsening of condition Followup: kb - With: Private Physician - When: 2 - 3 days - Reason: Recheck today's complaints, Continuance of care, Re-evaluation by your physician Discharge Instructions: - Discharge Summary Sheet kb - Food Choices to Help Relieve Diarrhea, Adult kb - Abdominal Pain, Adult, [id number] kb - Diarrhea, Adult, [id number] kb Forms: - Medication Reconciliation Form kb - Thank You Letter kb - Antibiotic Education kb - Prescription Opioid Use kb Signatures: Dispatcher [employer] EDMS Ambreen Riggs, MURIEL-C Jess Shearer RN RN vg1 Abigail Valdez RN RN ko1 Corrections: (The following items were deleted from the chart) 08:33 08:08 Differential diagnosis: cholecystitis, Cholelithiasis, non-specific abd pain, kb pancreatitis, kb
[2023-01-24 11:41] VITALS: TEMP 98.1
[2023-01-24 11:43] VITALS: O2SAT 99
[2023-01-24 11:44] VITALS: BP 118/74
--- NOTE | 2023-01-25 17:51 | EKG ---
Test Date: 2023-01-24 Test Time: 08:47:14 Freight Flagman: SULY MEASUREMENT RESULTS: Intervals: Rate: 72 MA: 196 QRSD: 90 QT: 400 QTc: 438 [place]: P: 56 MA: 196 QRS: 76 T: 51 INTERPRETIVE STATEMENTS: Normal sinus rhythm Normal ECG Compared to ECG 04/15/2022 09:27:18 No significant changes Electronically Signed On 01-25-23 17:49:27 CDT by Barrera Arenas
== END 2023-01-24 11:17 | disposition home or self-care (01) ==
LOC: ER 07:45
DX: R10.10 Upper abdominal pain, unspecified (principal); R19.7 Diarrhea, unspecified; R53.1 Weakness
CPT/HCPCS: 36415; 70450; 76705; 80053; 81001; 81025; 83690; 84484; 85025; 93005; 99285; J7030

== ENCOUNTER 2023-04-11 11:46 | Emergency (ER) | payer SELFPAY ==
--- NOTE | 2023-04-11 13:24 | ER ---
Nurse's Notes [facility] Name: Mirna Allen Age: 42 yrs Sex: Female : 1980 Arrival Date: 04/11/2023 Time: 11:46 Bed 16 Private MD: Diagnosis: Acute upper respiratory infection, unspecified Presentation: 04/11 12:03 Chief complaint: Patient states: cough, tightness to throat, bodyaches that started iw yesterday. Denies fever. 12:04 Coronavirus screen: Client presents with at least one sign or symptom that may indicate iw coronavirus-19. Ebola Screen: Patient negative for fever greater than or equal to 101.5 degrees Fahrenheit, and additional compatible Ebola Virus Disease symptoms Patient denies exposure to infectious person. Patient denies travel to an Ebola-affected area in the 21 days before illness onset. Risk Assessment: Do you want to hurt yourself or someone else? Patient reports no desire to harm self or others. 12:04 Method Of Arrival: Ambulatory iw 12:04 Acuity: WILLIAM 4 iw 12:04 Initial Sepsis Screen: Does the patient meet any 2 criteria? No. Patient's initial iw sepsis screen is negative. Does the patient have a suspected source of infection? No. Patient's initial sepsis screen is negative. Onset of symptoms was April 10, 2023. 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 - Social history:: Smoking status: Patient reports the use of cigarette tobacco products. Screenin:46 [facility] ED Fall Risk Assessment (Adult) History of falling in the last 3 months, me1 including since admission No falls in past 3 months (0 pts) Confusion or Disorientation No (0 pts) Intoxicated or Sedated No (0 pts) Impaired Gait No (0 pts) Mobility Assist Device Used No (0 pt) Altered Elimination No (0 pt) Score/Fall Risk Level 0 - 2 = Low Risk. Abuse screen: Denies threats or abuse. Nutritional screening: No deficits noted. Tuberculosis screening: No symptoms or risk factors identified. Assessment: 12:46 General: Appears uncomfortable, well groomed, well developed, well nourished, Behavior me1 is calm, cooperative, appropriate for age, Reports chills for feeling ill for fatigue for cough, congestion, sore throat, body aches, headache and nausea and diarrhea that started yesterday. Pain: Complains of pain in generalized Quality of pain is described as aching. Neuro: Level of Consciousness is awake, alert, obeys commands, Oriented to person, place, time, situation, Appropriate for age. Cardiovascular: Capillary refill < 3 seconds Patient's skin is warm and dry. Cardiovascular: Respiratory: Reports cough that is non-productive, Airway is patent Respiratory effort is even, unlabored, Respiratory pattern is regular, symmetrical. 12:46 Pain: Pain began 1 day ago. me1 12:50 Pain: Pain does not radiate. me1 Vital Signs: 12:04 BP 124 / 85; Pulse 91; Resp 16; Temp 98.1; Pulse Ox 100% on R/A; Weight 68.04 kg; iw Height 4 ft. 11 in. ; 12:46 BP 125 / 79; Pulse 90; Resp 17; Pulse Ox 98% on R/A; me1 14:03 BP 136 / 93; Pulse 82; Resp 17; Pulse Ox 100% on R/A; me1 12:04 Body Mass Index 30.30 (68.04 kg, 149.86 cm) ED Course: 11:48 Patient arrived in ED. ts1 11:52 Ambreen Riggs FNP-C is [facility]. kb 11:52 Diego Topete MD is Attending Physician. kb 12:10 Triage completed. iw 12:11 Arm band placed on. iw 12:31 nAneliese Horn, CASTRO is Primary Nurse. me1 12:44 Strep Sent. me1 12:44 SARS-COV-2 RT PCR Sent. me1 12:44 Flu Sent. me1 12:46 Patient has correct armband on for positive identification. Bed in low position. Call me1 light in reach. Side rails up X2. Provided Education on: POC. Verbalized understanding.. Client placed on continuous cardiac and pulse oximetry monitoring. NIBP monitoring applied. 12:46 No provider procedures requiring assistance completed. me1 12:50 Patient maintains SpO2 saturation greater than 95% on room air. me1 14:03 Patient did not have IV access during this emergency room visit. me1 Administered Medications: No medications were administered Medication: 12:46 VIS not applicable for this client. me1 Outcome: 13:23 Discharge ordered by . fantasma 14:07 Discharged to home ambulatory, with significant other. me1 14:07 Condition: stable 14:07 Discharge instructions given to patient, significant other, Instructed on discharge instructions, follow up and referral plans. medication usage, Demonstrated understanding of instructions, follow-up care, medications, Prescriptions given X 1. 14:07 Patient left the ED. me1 Signatures: Ambreen Riggs, KARATE BLACK BELT-C KARATE BLACK BELT-Annika Nichols, RN RN iw Shellie Avina, PAS PAS ts1 Anneliese Horn, RN RN me1 Corrections: (The following items were deleted from the chart) 12:11 12:04 Acuity: WILLIAM 3 iw iw 12:11 12:04 Pulse 91bpm; Resp 16bpm; Pulse Ox 100% RA; Temp 98.1F; 68.04 kg; Height 4 ft. 11 iw in.; BMI: 30.3; iw
--- NOTE | 2023-04-11 13:24 | EDPHYS ---
Physician Documentation [facility] Name: Mirna Allen Age: 42 yrs Sex: Female : 1980 Arrival Date: 04/11/2023 Time: 11:46 Bed 16 Private MD: ED Physician Diego Topete HPI: 04/11 13:21 This 42 yrs old Female presents to ER via Ambulatory with complaints of Chest kb Congestion, Cough, General Weakness, Chest Pain. 13:21 The patient or guardian reports cough, that is intermittent, described as moderate, flu kb symptoms, myalgias. Onset: The symptoms/episode began/occurred yesterday. Severity of symptoms: At their worst the symptoms were moderate, in the emergency department the symptoms are unchanged. Modifying factors: The symptoms are alleviated by nothing, the symptoms are aggravated by nothing. Associated signs and symptoms: The patient has no apparent associated signs or symptoms. The patient has not experienced similar symptoms in the past. The patient has not recently seen a physician. Patient is a 42-year-old female who presents for cough that causes tightness to the throat and body aches that started yesterday. Denies fever, shortness of breath, chest pain.. 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 - Social history:: Smoking status: Patient reports the use of cigarette tobacco products. ROS: 13:22 Abdomen/GI: Negative for abdominal pain, nausea, vomiting, diarrhea, and constipation. kb 13:22 Constitutional: Positive for body aches, malaise. 13:22 Respiratory: Positive for cough. 13:22 All other systems are negative. Exam: 13:22 Constitutional: This is a well developed, well nourished patient who is awake, alert, kb and in no acute distress. Head/Face: Normocephalic, atraumatic. ENT: Moist Mucous membranes Cardiovascular: Regular rate and rhythm with a normal S1 and S2. No gallops, murmurs, or rubs. No pulse deficits. Respiratory: Respirations even and unlabored. No increased work of breathing. Talking in full sentences Abdomen/GI: Soft, non-tender. No distention Skin: Warm, dry with normal turgor. Normal color. MS/ Extremity: Pulses equal, no cyanosis. Neurovascular intact. Full, normal range of motion. Neuro: Awake and alert, GCS 15, oriented to person, place, time, and situation. Moves all extremities. Normal gait. Vital Signs: 12:04 BP 124 / 85; Pulse 91; Resp 16; Temp 98.1; Pulse Ox 100% on R/A; Weight 68.04 kg; iw Height 4 ft. 11 in. ; 12:46 BP 125 / 79; Pulse 90; Resp 17; Pulse Ox 98% on R/A; me1 14:03 BP 136 / 93; Pulse 82; Resp 17; Pulse Ox 100% on R/A; me1 12:04 Body Mass Index 30.30 (68.04 kg, 149.86 cm) iw MDM: 12:02 Patient medically screened. kb 13:22 Differential Diagnosis: Other Flu, URI, COVID, strep. Data reviewed: vital signs, kb nurses notes. Test considered but Not performed: X-ray: X-ray of chest considered but lungs clear throughout, oxygen 98% on room air, respirations even unlabored.. Counseling: I had a detailed discussion with the patient and/or guardian regarding the historical points, exam findings, and any diagnostic results supporting the discharge/admit diagnosis, lab results, the need for outpatient follow up, a family practitioner, to return to the emergency department if symptoms worsen or persist or if there are any questions or concerns that arise at home. 04/11 12:02 Order name: Flu; Complete Time: 13:04 04/11 12:02 Order name: SARS-COV-2 RT PCR; Complete Time: 13:21 04/11 12:08 Order name: Strep 04/11 12:56 Order name: Throat Culture EDMS Administered Medications: No medications were administered Disposition Summary: 04/11/23 13:23 Discharge Ordered Location: Home kb Condition: Stable kb Diagnosis - Acute upper respiratory infection, unspecified kb Followup: kb - With: Emergency Department - When: As needed - Reason: Worsening of condition Followup: kb - With: Private Physician - When: 2 - 3 days - Reason: Recheck today's complaints, Continuance of care, Re-evaluation by your physician Discharge Instructions: - Discharge Summary Sheet kb - Upper Respiratory Infection, Adult, [id number] kb - Viral Respiratory Infection, [id number] kb Forms: - Medication Reconciliation Form kb - Thank You Letter kb - Antibiotic Education kb - Prescription Opioid Use kb - Patient Portal Instructions kb - Leadership Thank You Letter kb Prescriptions: - Tessalon Perles 100 mg Oral Capsule - take 1 capsule by ORAL route every 8 hours As needed; 15 capsule; Refills: 0, kb Product Selection Permitted Signatures: Dispatcher [employer] EDMS Ambreen Riggs, WIND ENERGY TECHNICIAN-C WIND ENERGY TECHNICIAN-Annika Nichols, RN RN iw
[2023-04-11 14:18] VITALS: TEMP 98.1
[2023-04-11 14:26] VITALS: BP 136/93; O2SAT 100
== END 2023-04-11 14:07 | disposition home or self-care (01) ==
LOC: ER 11:46
DX: J06.9 Acute upper respiratory infection, unspecified (principal); Z72.0 Tobacco use; Z20.822 Contact with and (suspected) exposure to COVID-19
CPT/HCPCS: 87070; 87081; 87635; 87804; 99284

== ENCOUNTER 2023-05-12 17:27 | Inpatient (IN) | payer SELFPAY ==
[2023-05-12] MEDS ORDERED: NA CHLORIDE 0.9% 1,000 ML ONE (17:56)
[2023-05-12] MEDS ORDERED: NA CHLORIDE 0.9% 500 ML ONE (17:56)
[2023-05-12] MEDS ORDERED: ASPIRIN 81 MG CHEWABLE TABLET ONE (17:56)
[2023-05-12 18:04] LABS: Hematocrit 39.9 % (36.0-45.0); Lymphocytes % 35.4 % (15.3-44.8); MCV 96.9 fL (80-100); MPV 6.5 fL (7.6-11.3); Platelets 415 thou/uL (152-406); RBC Red Blood Cell Count 4.12 M/uL (3.86-4.86)
[2023-05-12 18:12] LABS: Protime INR 1.12
[2023-05-12] MEDS ORDERED: TENECTEPLASE 50 MG/10 ML VIAL IV ONE (18:14)
[2023-05-12 18:21] LABS: Albumin 4.1 g/dL (3.4-5.0); Bilirubin Direct 0.1 mg/dL (0-0.2); Bilirubin Indirect, Calculated 0.2 mg/dL (0.2-0.8); Bilirubin Total 0.3 mg/dL (0.2-1.0); Potassium 3.4 mEq/L (3.5-5.1); Protein, Total 8.3 g/dL (6.4-8.2); Troponin High Sensitivity 5.4 pg/mL (<58.9)
--- NOTE | 2023-05-12 18:29 | RAD REPORT ---
EXAM DESCRIPTION: CT - Ct Stroke Brain Wo Cont - 05/12/2023 6:20 pm CLINICAL HISTORY: NUMBNESS COMPARISON: January 2023 TECHNIQUE: Computed axial tomography of the head was obtained. All CT scans are performed using dose optimization technique as appropriate and may include automated exposure control or mA/KV adjustment according to patient size. FINDINGS: An intracranial bleed is not seen . The ventricles are normal in caliber. No extra-axial fluid collection is noted. No significant hypodensity within the brain noted Fluid within the sinuses/ mastoids is not seen. IMPRESSION: No acute intracranial abnormality is seen. If patient's symptoms persist MRI of the bra in would be recommended Doctor Garcia of the emergency room was notified at 6:14 p.m. on May 12, 2023
--- NOTE | 2023-05-12 18:37 | RAD REPORT ---
EXAM DESCRIPTION: Ronen Angio05/12/2023 6:20 pm CLINICAL HISTORY: Numbness COMPARISON: 2021 TECHNIQUE: 100 cc Isovue [address] angiogram of the neck was obtained. 3D MIPS reconstruction performed. All CT scans are performed using dose optimization technique as appropriate and may include automated exposure control or mA/KV adjustment according to patient size. FINDINGS: Minimal plaque is present within common carotid, internal carotid and external carotid art eries bilaterally Vertebral arteries appear unremarkable Vertebral arteries unremarkable No dissection is seen. No high-grade stenosis IMPRESSION: No significant abnormality is displayed Nascet crieria Mild stenosis 0 to 49 % Moderate stenosis 50-69% Severe stenosis 70-99%
--- NOTE | 2023-05-12 18:39 | RAD REPORT ---
EXAM DESCRIPTION: CTHead angio05/12/2023 6:20 pm CLINICAL HISTORY: Numbness COMPARISON: None TECHNIQUE: 100 cc Isovue [address] angiogram of the head was obtained. 3D MIPS reconstruction performed. All CT scans are performed using dose optimization technique as appropriate and may include automated exposure control or mA/KV adjustment according to patient size. FINDINGS: The basilar, anterior cerebral, middle cerebral and posterior cerebral arteries do not dem onstrate a significant abnormality origin right posterior cerebral artery An aneurysm is not seen A significant stenosis is not noted. No large vessel occlusion IMPRESSION: No significant abnormality is displayed
--- NOTE | 2023-05-12 18:50 | RAD REPORT ---
EXAM DESCRIPTION: Julito Single View05/12/2023 6:38 pm CLINICAL HISTORY: Chest pain COMPARISON: 2021 FINDINGS: The lungs appear clear of acute infiltrate. The heart is normal size IMPRESSION: No acute abnormalities displayed
--- NOTE | 2023-05-12 18:52 | ER ---
Nurse's Notes [facility] Name: Mirna Allen Age: 42 yrs Sex: Female : 1980 Arrival Date: 05/12/2023 Time: 17:27 Bed 13 Private MD: Diagnosis: Chest pain, unspecified;Cerebral infarction, unspecified-acute ;Hypokalemia Presentation: 05/12 17:30 Chief complaint: Patient states: chest pain radiating down left arm that began 1 hr aa5 ago. Pt c/o headache and slight numbness/tingling to lips and tongue. Coronavirus screen: At this time, the client does not indicate any symptoms associated with coronavirus-19. Ebola Screen: Patient denies travel to an Ebola-affected area in the 21 days before illness onset. Initial Sepsis Screen: Does the patient meet any 2 criteria? HR > 90 bpm. Does the patient have a suspected source of infection? No. Patient's initial sepsis screen is negative. Risk Assessment: Do you want to hurt yourself or someone else? Patient reports no desire to harm self or others. 17:30 Acuity: WILLIAM 2 aa5 17:30 Method Of Arrival: Ambulatory aa5 17:30 Onset of symptoms was May 12, 2023. 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 - Social history:: Smoking status: Patient reports the use of cigarette tobacco products, smokes one pack cigarettes per day. - Family history:: not pertinent. Screenin:45 [facility] ED Fall Risk Assessment (Adult) Score/Fall Risk Level 0 - 2 = Low Risk nj1 Oriented to surroundings, Maintained a safe environment, Hourly rounding (assess needs \T\ fall precautionary measures) done. Abuse screen: Denies threats or abuse. Denies injuries from another. Nutritional screening: No deficits noted. Tuberculosis screening: No symptoms or risk factors identified. 18:50 Rand Swallow Protocol Exclusion Criteria: Unable to remain alert for testing: No NPO nj1 for medical/surgical reason by provider order No Tracheostomy tube present No No thin liquids due to preexisting dysphagia/baseline modified diet thickened liquids No Exclusion Criteria Result: Proceed Brief Cognitive Screen What is your name? Normal, Where are you right now? Normal, What year is it? Normal. Oral Mechanism Examination Facial Symmetry: Normal, Motion: Normal, Lip Closure: Normal, Oral Mechanism Result: Normal. 3 oz Water Swallow Challenge: Pt able to drink all water without stopping, coughing, choking or throat clearing: Yes Result: PASS. Assessment: 17:45 General: Appears in no apparent distress. comfortable, Behavior is calm, cooperative, nj1 appropriate for age. 17:45 Pain: Complains of pain in chest Pain does not radiate. Pain began 1 hour ago. Neuro: nj1 Level of Consciousness is awake, alert, obeys commands, Oriented to person, place, time, situation, [facility] are equal bilaterally Moves all extremities. Speech is normal, Facial symmetry appears normal, Intact Tingling in left arm Numbness in Ravi, lower lip. Cardiovascular: Chest pain. 17:50 Reassessment: Dr Garcia at bedside. or1 17:58 Reassessment: Code Stroke activated by Dr Garcia. [facility] 18:03 Reassessment: Taken for CT. nj 18:52 Reassessment: Patient appears in no apparent distress at this time. Patient and/or nj1 family updated on plan of care and expected duration. Pain level reassessed. Patient is alert, oriented x 3, equal unlabored respirations, skin warm/dry/pink. Patient denies pain at this time. Patient states feeling better. 19:52 Reassessment: Patient appears in no apparent distress at this time. Patient and/or nj1 family updated on plan of care and expected duration. Pain level reassessed. Patient is alert, oriented x 3, equal unlabored respirations, skin warm/dry/pink. Patient denies pain at this time. Patient states feeling better. Patient states symptoms have improved. Numbness (tongue, lower lip) resolved.. Vital Signs: 17:30 BP 161 / 107; Pulse 98; Resp 20 S; Temp 98(TE); Pulse Ox 100% on R/A; Weight 72.57 kg aa5 (R); Height 4 ft. 11 in. (R); 17:47 BP 130 / 95; Pulse 84; Resp 17; Pulse Ox 100% on R/A; nj1 18:17 BP 122 / 80; Pulse 78; Resp 19; Pulse Ox 100% on R/A; Pain 5/10; nj1 19:52 BP 122 / 91; Pulse 77; Resp 16; Pulse Ox 100% on R/A; Pain 0/10; nj1 17:30 Body Mass Index 32.32 (72.57 kg, 149.86 cm) aa5 18:17 Pain Scale: Adult nj1 19:52 Pain Scale: Adult nj1 NIH Stroke Scale Scores: 18:00 NIHSS Score: 0 nj1 18:44 NIHSS Score: 4 [facility] ED Course: 17:29 Patient arrived in ED. aa5 17:30 Arm band placed on. aa5 17:31 Triage completed. aa5 17:32 Dmitri Garcia MD is Attending Physician. nam 17:40 Cathy Russell RN is Primary Nurse. nj1 17:45 Patient has correct armband on for positive identification. Bed in low position. Call nj1 light in reach. Adult w/ patient. 17:45 Provided Education on: call light, fall precautions. Client placed on continuous or1 cardiac and pulse oximetry monitoring. NIBP monitoring applied. 17:45 Inserted saline lock: 20 gauge in right antecubital area, using aseptic technique. nj1 Blood collected. 17:50 Patient maintains SpO2 saturation greater than 95% on room air. nj1 18:22 CT Stroke Brain w/o Contrast In Process Unspecified. EDMS 18:22 CT Head Angio In Process Unspecified. EDMS 18:22 CT Neck Angio In Process Unspecified. EDMS 18:40 XRAY Chest (1 view) In Process Unspecified. EDMS 18:51 Yamilka Andrews MD is Hospitalizing Provider. nam 20:12 No provider procedures requiring assistance completed. Patient admitted, IV remains in or1 place. Administered Medications: 17:45 Drug: Aspirin PO Chewable Tablet 324 mg PO once; 81 mg tablets x 4 Route: PO; nj1 17:48 Drug: NS 0.9% IV 500 ml IV at bolus once Route: IV; Rate: bolus; Site: right nj1 antecubital; 19:10 Follow up: Response: No adverse reaction; IV Status: Completed infusion; IV Intake: nj1 500ml 18:22 Drug: TNK FOR STROKE - Tenecteplase IV 0.25 mg/kg IV at per protocol once; MAX iw DOSE 25 mg, IVP over 5 seconds {Co-Signature: jamel (Cathy Russell RN).} Route: IV; Rate: per protocol; Site: right antecubital; 20:22 Follow up: Response: No adverse reaction nj1 18:47 Drug: Famotidine IVP 20 mg IVP once; dilute with 10 mL 0.9% NaCl; give over 2 minutes iw Route: IVP; Site: right antecubital; 20:26 Follow up: Response: No adverse reaction nj1 18:55 Drug: foLIC Acid IVPB 1 mg IVPB once Route: IVPB; Site: right antecubital; iw 18:55 Follow up: Response: No adverse reaction nj1 19:20 Drug: Potassium PO Effervescent Tablet 25 mEq PO once; dissolve in 4 ounces of water or nj1 juice Route: PO; 20:26 Follow up: Response: No adverse reaction nj1 20:10 Drug: NS 0.9% IV 1000 ml IV at 125 ml/hr continuous Route: IV; Rate: 125 ml/hr; Site: [facility] right antecubital; Medication: 20:13 VIS not applicable for this client. nj1 Intake: 19:10 IV: 500ml; Total: 500ml. nj1 Outcome: 18:52 Decision to Hospitalize by Provider. nam 20:12 Admitted to ICU accompanied by nurse, via stretcher, room 7, Report called to Ani ERAZO nj1 20:12 Condition: stable 20:12 Instructed on the need for admit, 20:43 Patient left the ED. nj1 NIH Stroke Scale - NIH Stroke Score Date: 05/12/2023 Time: 18:00 Total Score = 0 10. Dysarthria (speech clarity - read or repeat words) - 0(Normal) 11. Extinction and Inattention (visual/tactile/auditory/spatial/personal) - 0(No abnormality) 1a. Level of Consciousness (LOC) - 0(Alert) 1b. Level of Consciousness (LOC) (Month \T\ Age) - 0(Both) 1c. LOC Commands (Open \T\ Closes Eyes/Coal Tram Driver) - 0(Both) 2. Best Gaze (Lateral Gaze Paresis) - 0(Normal) 3. Visual Field Loss - 0(No visual loss) 4. Facial Palsy - 0(Normal) 5a. Left Arm: Motor (10-second hold) - 0(No drift) 5b. Right Arm: Motor (10-second hold) - 0(No drift) 6a. Left Leg: Motor (5-second hold - always test supine) - 0(No drift) 6b. Right Leg: Motor (5-second hold - always test supine) - 0(No drift) 7. Limb Ataxia (finger/nose \T\ heel/okeefe - test with eyes open) - 0(Absent) 8. Sensory Loss (pinprick arms/legs/face) - 0(Normal) 9. Best Language: Aphasia (description/naming/reading) - 0(No aphasia) Initials: nj1 NIH Stroke Scale - NIH Stroke Score Date: 05/12/2023 Time: 18:44 Total Score = 4 10. Dysarthria (speech clarity - read or repeat words) - 0(Normal) 11. Extinction and Inattention (visual/tactile/auditory/spatial/personal) - 0(No abnormality) 1a. Level of Consciousness (LOC) - 0(Alert) 1b. Level of Consciousness (LOC) (Month \T\ Age) - 0(Both) 1c. LOC Commands (Open \T\ Closes Eyes/Coal Tram Driver) - 0(Both) 2. Best Gaze (Lateral Gaze Paresis) - 0(Normal) 3. Visual Field Loss - 0(No visual loss) 4. Facial Palsy - 0(Normal) 5a. Left Arm: Motor (10-second hold) - 1(Drift) 5b. Right Arm: Motor (10-second hold) - 0(No drift) 6a. Left Leg: Motor (5-second hold - always test supine) - 1(Drift) 6b. Right Leg: Motor (5-second hold - always test supine) - 0(No drift) 7. Limb Ataxia (finger/nose \T\ heel/okeefe - test with eyes open) - 1(Present in one limb) 8. Sensory Loss (pinprick arms/legs/face) - 1(Mild to moderate loss) 9. Best Language: Aphasia (description/naming/reading) - 0(No aphasia) Initials: nam Signatures: Dispatcher [employer] Dmitri Alford MD MD cha Williams, Irene, RN RN iw Calderon, Audri, RN RN aa5 Cathy Russell RN RN nj1 Cathy Russell RN nj1 Corrections: (The following items were deleted from the chart) 18:16 17:47 BP 130 / 95; Pulse 84bpm; Resp 17bpm; nj1 nj1 19:11 18:50 [place] Swallow Protocol Exclusion Criteria: Unable to remain alert for nj1 testing: No NPO for medical/surgical reason by provider order No Tracheostomy tube present No No thin liquids due to preexisting dysphagia/baseline modified diet thickened liquids No Exclusion Criteria Result: Proceed Brief Cognitive Screen What is your name? Normal, Where are you right now? Normal, What year is it? Normal. Oral Mechanism Examination Facial Symmetry: Normal, Motion: Normal, Lip Closure: Normal, Oral Mechanism Result: Normal. 3 oz Water Swallow Challenge: Pt able to drink all water without stopping, coughing, choking or throat clearing: Yes Result: PASS nj1
--- NOTE | 2023-05-12 18:52 | EDPHYS ---
Physician Documentation [facility] Name: Mirna Allen Age: 42 yrs Sex: Female : 1980 Arrival Date: 05/12/2023 Time: 17:27 Bed 13 Private MD: Dmitri Grubbs HPI: 05/12 18:43 This 42 yrs old Female presents to ER via Ambulatory with complaints of Chest nam Pain. 18:43 The patient or guardian reports chest pain that is located primarily in the anterior nam chest wall. Onset: just prior to arrival, today. The pain radiates to the left arm. 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 - Social history:: Smoking status: Patient reports the use of cigarette tobacco products, smokes one pack cigarettes per day. - Family history:: not pertinent. ROS: 18:44 Constitutional: Negative for fever, chills, and weight loss, Eyes: Negative for injury, nam pain, redness, and discharge, ENT: Negative for injury, pain, and discharge, Neck: Negative for injury, pain, and swelling, Cardiovascular: Negative for chest pain, palpitations, and edema, Respiratory: Negative for shortness of breath, cough, wheezing, and pleuritic chest pain, Abdomen/GI: Negative for abdominal pain, nausea, vomiting, diarrhea, and constipation, Back: Negative for injury and pain, : Negative for injury, bleeding, discharge, and swelling, Skin: Negative for injury, rash, and discoloration, Neuro: Negative for headache, weakness, numbness, tingling, and seizure, Psych: Negative for depression, anxiety, suicide ideation, homicidal ideation, and hallucinations, Allergy/Immunology: Negative for hives, rash, and allergies, Endocrine: Negative for neck swelling, polydipsia, polyuria, polyphagia, and marked weight changes, Hematologic/Lymphatic: Negative for swollen nodes, abnormal bleeding, and unusual bruising, 18:44 MS/extremity: Positive for decreased range of motion, of the left arm and left leg, 18:44 Neuro: Positive for numbness, weakness, of the face, left arm and left leg, Exam: 18:44 Radiologist reports: negative nam 18:44 Constitutional: This is a well developed, well nourished patient who is awake, alert, and in no acute distress. Head/Face: Normocephalic, atraumatic. Eyes: Pupils equal round and reactive to light, extra-ocular motions intact. Lids and lashes normal. Conjunctiva and sclera are non-icteric and not injected. Cornea within normal limits. Periorbital areas with no swelling, redness, or edema. ENT: Nares patent. No nasal discharge, no septal abnormalities noted. Tympanic membranes are normal and external auditory canals are clear. Oropharynx with no redness, swelling, or masses, exudates, or evidence of obstruction, uvula midline. Mucous membranes moist. Neck: Trachea midline, no thyromegaly or masses palpated, and no cervical lymphadenopathy. Supple, full range of motion without nuchal rigidity, or vertebral point tenderness. No Meningismus. Chest/axilla: Normal chest wall appearance and motion. Nontender with no deformity. No lesions are appreciated. Cardiovascular: Regular rate and rhythm with a normal S1 and S2. No gallops, murmurs, or rubs. Normal PMI, no JVD. No pulse deficits. Respiratory: Lungs have equal breath sounds bilaterally, clear to auscultation and percussion. No rales, rhonchi or wheezes noted. No increased work of breathing, no retractions or nasal flaring. Abdomen/GI: Soft, non-tender, with normal bowel sounds. No distension or tympany. No guarding or rebound. No evidence of tenderness throughout. Back: No spinal tenderness. No costovertebral tenderness. Full range of motion. Skin: Warm, dry with normal turgor. Normal color with no rashes, no lesions, and no evidence of cellulitis. MS/ Extremity: Pulses equal, no cyanosis. Neurovascular intact. Full, normal range of motion. Psych: Awake, alert, with orientation to person, place and time. Behavior, mood, and affect are within normal limits. 18:44 Neuro: Orientation: is normal, appropriate for stated age, no acute changes, Mentation: is normal, appropriate for stated age, Memory: is normal, Cranial nerves: grossly normal, is grossly normal based on the patient's age, no acute changes, Cerebellar function: is grossly normal, is grossly normal based on the patient's age, Motor: strength is 4/5 in the left arm and left leg, Sensation: numbness, that is mild, of the left arm and left leg, Gait: is steady, at a normal pace, Deep tendon reflexes are 2+ (normal) in the bilateral brachioradialis, bicep, tricep and patellar and Achilles tendons, Babinski testing is normal, seizure activity, is not displayed by the patient, 18:53 ECG was reviewed by the Attending Physician. [facility] Vital Signs: 17:30 BP 161 / 107; Pulse 98; Resp 20 S; Temp 98(TE); Pulse Ox 100% on R/A; Weight 72.57 kg aa5 (R); Height 4 ft. 11 in. (R); 17:47 BP 130 / 95; Pulse 84; Resp 17; Pulse Ox 100% on R/A; nj1 18:17 BP 122 / 80; Pulse 78; Resp 19; Pulse Ox 100% on R/A; Pain 5/10; nj1 19:52 BP 122 / 91; Pulse 77; Resp 16; Pulse Ox 100% on R/A; Pain 0/10; nj1 17:30 Body Mass Index 32.32 (72.57 kg, 149.86 cm) aa5 18:17 Pain Scale: Adult nj1 19:52 Pain Scale: Adult nj1 NIH Stroke Scale Scores: 18:00 NIHSS Score: 0 nj1 18:44 NIHSS Score: 4 nam MDM: 17:32 Patient medically screened. nam 18:47 Differential diagnosis: abnormal EKG, acute myocardial infarction, chest wall pain, nam Cholelithiasis CVA, TIA, Dementia, metabolic disorder, gastritis, pneumonia, stable angina, thoracic aortic disection, unstable angina. HEART Score: History: Slightly Suspicious (0), ECG: Normal (0), Age: < or = 45 years (0), Risk Factors: > or = 3 Risk factors for atherosclerotic disease (2), [Hypercholesterolemia] [Hypertension] [+ Family HX] [Obesity] Troponin: < or = 1 x Normal Limit (0), Total Score = 2. The patient was given aspirin in the Emergency Department. ROD Risk Score: 1 - Three or more CAD risk factors, TOTAL SCORE = 1. Data reviewed: vital signs, nurses notes, lab test result(s), EKG, radiologic studies, CT scan, plain films. Consideration of Admission/Observation Patient was admitted/placed on observation. Escalation of care including admission/observation considered. I considered the following discharge prescriptions or medication management in the emergency department Medications were administered in the Emergency Department. See MAR. Independent interpretation of the following test(s) in the Emergency Department EKG: See my EKG interpretation above. Test considered but Not performed: MRI: mri na. Historians other than the Patient: Family Member: mom. Care significantly affected by the following chronic conditions: Hypertension, migraine,, seizure, cva. 05/12 17:32 Order name: Basic Metabolic Panel; Complete Time: 18:39 nam 05/12 17:32 Order name: CBC with Diff; Complete Time: 18:39 nam 05/12 17:32 Order name: LFT's; Complete Time: 18:39 nam 05/12 17:32 Order name: Magnesium; Complete Time: 18:39 nam 05/12 17:32 Order name: NT PRO-BNP; Complete Time: 18:39 nam 05/12 17:32 Order name: PT-INR; Complete Time: 18:39 nam 05/12 17:32 Order name: Troponin HS; Complete Time: 18:39 nam 05/12 17:32 Order name: Lipase; Complete Time: 18:39 nam 05/12 17:32 Order name: Urinalysis w/ reflexes 05/12 17:32 Order name: XRAY Chest (1 view); Complete Time: 20:28 05/12 18:02 Order name: CT Stroke Brain w/o Contrast; Complete Time: 18:39 05/12 18:02 Order name: CT Head Angio; Complete Time: 18:50 05/12 18:02 Order name: CT Neck Angio; Complete Time: 18:39 05/12 17:32 Order name: EKG; Complete Time: 17:33 05/12 17:32 Order name: Cardiac monitoring; Complete Time: 17:59 nam 05/12 17:32 Order name: EKG - Nurse/Tech; Complete Time: 17:41 05/12 17:32 Order name: IV Saline Lock; Complete Time: 17:59 05/12 17:32 Order name: Labs collected and sent; Complete Time: 17:59 [facility] 05/12 17:32 Order name: O2 Per Protocol; Complete Time: 17:59 [facility] 05/12 17:32 Order name: O2 Sat Monitoring; Complete Time: 17:59 [facility] EC:53 Rate is 85 beats/min. Rhythm is regular. QRS [place] is Normal. IN interval is normal. QRS nam interval is normal. QT interval is normal. No Q waves. T waves are Normal. No ST changes noted. Clinical impression: Normal ECG and No evidence of ischemia. Interpreted by me. Reviewed by me. Administered Medications: 17:45 Drug: Aspirin PO Chewable Tablet 324 mg PO once; 81 mg tablets x 4 Route: PO; nj 17:48 Drug: NS 0.9% IV 500 ml IV at bolus once Route: IV; Rate: bolus; Site: right [facility] antecubital; 19:10 Follow up: Response: No adverse reaction; IV Status: Completed infusion; IV Intake: nj1 500ml 18:22 Drug: TNK FOR STROKE - Tenecteplase IV 0.25 mg/kg IV at per protocol once; MAX iw DOSE 25 mg, IVP over 5 seconds {Co-Signature: [facility] (Cathy Russell RN).} Route: IV; Rate: per protocol; Site: right antecubital; 20:22 Follow up: Response: No adverse reaction nj1 18:47 Drug: Famotidine IVP 20 mg IVP once; dilute with 10 mL 0.9% NaCl; give over 2 minutes iw Route: IVP; Site: right antecubital; 20:26 Follow up: Response: No adverse reaction nj1 18:55 Drug: foLIC Acid IVPB 1 mg IVPB once Route: IVPB; Site: right antecubital; iw 18:55 Follow up: Response: No adverse reaction nj1 19:20 Drug: Potassium PO Effervescent Tablet 25 mEq PO once; dissolve in 4 ounces of water or nj1 juice Route: PO; 20:26 Follow up: Response: No adverse reaction nj1 20:10 Drug: NS 0.9% IV 1000 ml IV at 125 ml/hr continuous Route: IV; Rate: 125 ml/hr; Site: [facility] right antecubital; Disposition Summary: 05/12/23 18:52 Hospitalization Ordered Notes: Hospitalization Status: Inpatient Admission nam Provider: Yamilka Andrews cha Location: Intensive Care Unit nam Condition: Fair nam Problem: new nam Symptoms: have improved nma Bed/Room Type: Standard [facility] Room Assignment: 5-(05/12/23 19:36) cg Diagnosis - Chest pain, unspecified nam - Cerebral infarction, unspecified - acute nam - Hypokalemia nam Forms: - Medication Reconciliation Form nam - SBAR form nam - Leadership Thank You Letter [facility] NIH Stroke Scale - NIH Stroke Score Date: 05/12/2023 Time: 18:00 Total Score = 0 10. Dysarthria (speech clarity - read or repeat words) - 0(Normal) 11. Extinction and Inattention (visual/tactile/auditory/spatial/personal) - 0(No abnormality) 1a. Level of Consciousness (LOC) - 0(Alert) 1b. Level of Consciousness (LOC) (Month \T\ Age) - 0(Both) 1c. LOC Commands (Open \T\ Closes Eyes/[employer]) - 0(Both) 2. Best Gaze (Lateral Gaze Paresis) - 0(Normal) 3. Visual Field Loss - 0(No visual loss) 4. Facial Palsy - 0(Normal) 5a. Left Arm: Motor (10-second hold) - 0(No drift) 5b. Right Arm: Motor (10-second hold) - 0(No drift) 6a. Left Leg: Motor (5-second hold - always test supine) - 0(No drift) 6b. Right Leg: Motor (5-second hold - always test supine) - 0(No drift) 7. Limb Ataxia (finger/nose \T\ heel/okeefe - test with eyes open) - 0(Absent) 8. Sensory Loss (pinprick arms/legs/face) - 0(Normal) 9. Best Language: Aphasia (description/naming/reading) - 0(No aphasia) Initials: nj1 NIH Stroke Scale - NIH Stroke Score Date: 05/12/2023 Time: 18:44 Total Score = 4 10. Dysarthria (speech clarity - read or repeat words) - 0(Normal) 11. Extinction and Inattention (visual/tactile/auditory/spatial/personal) - 0(No abnormality) 1a. Level of Consciousness (LOC) - 0(Alert) 1b. Level of Consciousness (LOC) (Month \T\ Age) - 0(Both) 1c. LOC Commands (Open \T\ Closes Eyes/[employer]) - 0(Both) 2. Best Gaze (Lateral Gaze Paresis) - 0(Normal) 3. Visual Field Loss - 0(No visual loss) 4. Facial Palsy - 0(Normal) 5a. Left Arm: Motor (10-second hold) - 1(Drift) 5b. Right Arm: Motor (10-second hold) - 0(No drift) 6a. Left Leg: Motor (5-second hold - always test supine) - 1(Drift) 6b. Right Leg: Motor (5-second hold - always test supine) - 0(No drift) 7. Limb Ataxia (finger/nose \T\ heel/okeefe - test with eyes open) - 1(Present in one limb) 8. Sensory Loss (pinprick arms/legs/face) - 1(Mild to moderate loss) 9. Best Language: Aphasia (description/naming/reading) - 0(No aphasia) Initials: nam Signatures: Dispatcher [employer] EDDmitri Crabajal MD MD cha Williams, Irene, RN Zahida Pinto RN RN aa5 Dominique Anderson RN RN cg Jaco, Norma, RN RN nj1 Cathy Russell RN nj1 Corrections: (The following items were deleted from the chart) 19:36 18:52 nam [place]
[2023-05-12] MEDS ORDERED: FAMOTIDINE 20 MG/2 ML VIAL IV ONE (18:56)
[2023-05-12] MEDS ORDERED: FOLIC ACID 5 MG/ML VIAL ONE (18:58)
--- NOTE | 2023-05-12 19:00 | P.HP ---
Certification for Inpatient Patient admitted to: Inpatient With expected LOS: <2 Midnights Patient will require the following post-hospital care: None Practitioner: I am a practitioner with admitting privileges, knowledge of patient current condition, hospital course, and medical plan of care. Services: Services provided to patient in accordance with Admission requirements found in Title 42 Section 412.3 of the Code of Federal Regulations Patient History Date of Service: 05/12/23 Reason for admission: Chest pain History of Present Illness: 42-year-old female with a past medical history of hyperlipidemia, tobacco use migraine, seizure, stroke presents to the emergency room with chest pain. She reports anterior chest pain reports radiation L arm started today. Denies nausea vomiting, fever chills, shortness of breath, edema. She reports left lower extremity numbness weakness strength 4 out of 5. NIH stroke scale 4 left upper extremity drift, left leg drift, limb ataxia, mild loss of sensation. vital signs BP 130 / 95; Pulse 84; Resp 17; Pulse Ox 100% CT of the brain IMPRESSION: No acute intracranial abnormality is seen. If patient's symptoms persist MRI of the brain would be recommended, CTA of the head neck and IMPRESSION: No significant abnormality is displayed. Chest x-ray IMPRESSION: No acute abnormalities displayed. Plan to ICU admit for - Chest pain, unspecified, Cerebral infarction, unspecified - acute, Hypokalemia. Patient was treated with 18:22 Drug: TNK FOR STROKE - Tenecteplase IV 0.25 mg/kg IV at per protocol once; MAX DOSE 25 mg, IVP over 5 seconds {Co-Signature: nj1 (Cathy Russell RN).} Route: IV; Rate: per protocol; Site: right antecubital; aspirin, laboratory evaluation CBC unremarkable mild hypokalemia 3.4, UA pending ER evaluation. Allergies NK Allergy (Uncoded 08/30/15 10:40) Unknown No Known Allergies Allergy (Uncoded 12/27/16 10:52) Unknown Home Medications: Aspirin [Aspirin EC 81 MG] 81 mg PO DAILY #30 tablet. 11/11/21 Atorvastatin Calcium [Lipitor*] 40 mg PO BEDTIME #30 tab 11/11/21 Clopidogrel Bisulfate [Plavix] 75 mg PO DAILY #30 tablet 11/11/21 Folic Acid 1 mg PO DAILY #30 tablet 11/11/21 Clopidogrel Bisulfate [Plavix*] 75 mg PO DAILY #30 04/16/22 Hydrocodone 5/APAP 325 [[place] 5/325*] 1 tab PO Q6H PRN #30 tab 04/16/22 Topiramate [Topamax] 50 mg PO BID #60 04/16/22 - Past Medical/Surgical History -: Tobacco use -: Seizure -: CVA -: Obesity. -: Tubal Ligation - Family History Father -: Cancer Mother -: Hypertension - Social History Alcohol use: No CD- Drugs: No Review of Systems 10-point ROS is otherwise unremarkable Physical Examination - Physical Exam General: Alert, In no apparent distress, Oriented x3 HEENT: Atraumatic, Normocephalic Respiratory: Clear to auscultation bilaterally, Normal air movement Cardiovascular: No edema, Regular rate/rhythm, Normal S1 S2 Capillary refill: <2 Seconds Gastrointestinal: Normal bowel sounds, Soft and benign Musculoskeletal: No clubbing, No swelling Integumentary: No rashes, No breakdown Neurological: Normal speech, Normal strength at 5/5 x4 extr, Other (Left upper, left lower extremity weakness 4 out of 5, decreased sensation) - Studies Laboratory Data (last 24 hrs) 05/12/23 05/12/23 05/12/23 17:45 17:45 17:45 WBC 8.50 Hgb 14.1 Hct 39.9 Plt Count 415 H PT 12.3 INR 1.12 Sodium 136 Potassium 3.4 L BUN 17 Creatinine 0.63 Glucose 98 Magnesium 2.0 Total Bilirubin 0.3 AST 35 ALT 73 H Alkaline Phosphatase 105 Lipase 13 Assessment and Plan - Plan Assessment plan CVA left hemiparesis acute Chest pain rule out RI acute Hypokalemia acute Essential hypertension Hyperlipidemia Assessment plan CVA left hemiparesis Admit to ICU, neurology consult, MRI in am She reports left lower extremity numbness weakness strength 4 out of 5. NIH stroke scale 4 left upper extremity drift, left leg drift, limb ataxia, mild loss of sensation. vital signs BP 130 / 95; Pulse 84; Resp 17; Pulse Ox 100% CT of the brain IMPRESSION: No acute intracranial abnormality is seen. If patient's symptoms persist MRI of the brain would be recommended, CTA of the h ead neck and IMPRESSION: No significant abnormality is displayed. Chest x-ray IMPRESSION: No acute abnormalities displayed. Patient was treated with 18:22 Drug: TNK FOR STROKE - Tenecteplase IV 0.25 mg/kg IV at per protocol once; MAX DOSE 25 mg, IVP over 5 seconds {Co- Signature: nj1 (Cathy Russell RN).} Route: IV; Rate: per protocol; Site: right antecubital; aspirin, PT eval, fall precautions Bedside swallow Chest pain rule out RI Cardiology consult, trend troponins Aspirin, hold anticoagulations status post TNK for CVA 05/12/2023 Hypokalemia Trend electrolytes replace as needed hypokalemia 3.4 Essential hypertension Permissive hypertension keep elevated elevated 30 degrees Hyperlipidemia Resume appropriate home meds Diet cardiac Full code DVT SCDs Discharge Plan: Home Plan to discharge in: 48 Hours - Advance Directives Does patient have a Living Will: No Does patient have a Durable POA for Healthcare: No - Code Status/Comfort Care Code Status: Full Code Physician Review: Patient Assessed, Agree with Above Assessment and Plan Critical Care: Yes Time Spent Managing Pts Care (In Minutes): 70
[2023-05-12] MEDS ORDERED: POTASSIUM 25 MEQ EFFERV TAB ONE (19:30)
[2023-05-12] MEDS ORDERED: ONDANSETRON 4 MG/2 ML VIAL IV PRN (21:09)
[2023-05-12 21:25] VITALS: BMI 31.8
[2023-05-12 22:41] LABS: Urine Bacteria <20 /HPF (<20); Urine Bilirubin NEGATIVE (Negative); Urine Blood 1+ (Negative); Urine Clarity Clear (Clear); Urine Color Light-Yellow (Yellow); Urine Glucose NEGATIVE (Negative); Urine Mucus 1+ /HPF (None Seen); Urine Protein NEGATIVE (Negative); Urine Urobilinogen Normal (Normal); Urine pH 5.5 (5.0-7.0)
[2023-05-12 23:21] LABS: Specific Gravity > 1.030 (1.005-1.030)
[2023-05-13 04:04] VITALS: O2SAT 98
[2023-05-13 04:34] LABS: Absolute Lymphocytes (CBC) 2.6 K/uL (0.7-4.9); Lymphocytes % 40.4 % (15.3-44.8); MCV 97.4 fL (80-100); MPV 6.5 fL (7.6-11.3); Platelets 398 thou/uL (152-406)
[2023-05-13 04:52] LABS: Magnesium 2.2 mg/dL (1.6-2.4); Potassium 3.9 mEq/L (3.5-5.1); Troponin High Sensitivity 4.6 pg/mL (<58.9)
[2023-05-13] MEDS ORDERED: INFLUENZA VACCINE (for 6+ mo) 0.5 ML DOSE IMVAC ONE (08:00)
--- NOTE | 2023-05-13 10:41 | RAD REPORT ---
EXAM DESCRIPTION: MRI - Brain Wo Cont - 05/13/2023 10:10 am CLINICAL HISTORY: CVA left-sided weakness COMPARISON: Noncontrast head CT and CT angiogram 05/12/2023. Brain MRI 11/18/2022 TECHNIQUE: Multiplanar multisequence MRI of the brain performed without IV contrast. FINDINGS: No evidence of acute infarct or other diffusion signal abnormality. No evidence of acute intracranial hemorrhage or abnormal extra-axial fluid collections. Ventricular caliber within normal for age. Midline structures are unremarkable. No mass effect or midline shift. Major vascular flow voids are preserved. Mastoid air cells and paranasal sinuses are clear. IMPRESSION: No acute intracranial process. No evidence of ventriculomegaly or mass effect.
--- NOTE | 2023-05-13 14:26 | CON ---
Reason For Consultation: Consultation was called because of stroke status post TNK. History Of Present Illness: Ms. Allen is a 42-year-old right-handed patient with history of migraine, who has had 4 similar admissions at the [facility] in the last year and a half with stroke-like symptoms and on 2 occasions she has received TNKs. Typically, the left side of her body is involved with weakness and numbness and that may follow a headache, although not on all occa sions. MRI was normal on November 18, 2021. This is brain MRI. The brain MRI also normal today on May. Normal brain MRI on November 18, 2022, and April 15, 2023. 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 A few days earlier, she had a migraine, which may have preceded some of the other episodes. At that point, she noted left arm and leg numbness and weakness and made her way to [facility] Emergency Room. She arrived well w ithin the window for TNKs and was given TNKs in emergency room after an NIH Stroke Scale was 4 with l eft upper extremity drift and the arm and leg and limb ataxia with loss of sensation. Her blood pres sure is 130/95, pulse 84, saturation 100%. Her CT scan was negative prior to her receiving TNKs. CT angiogram of her head and neck showed no abnormalities. The patient said after the last event earlier this year she was put on aspirin and Plavix and the Krissy vix was discontinued and she has been only taking aspirin. Past Medical History: Dyslipidemia and migraine along with stroke-like symptoms. Allergies: NO KNOWN DRUG ALLERGIES. Home Medications: Aspirin 81 mg daily, atorvastatin 40 mg at bedtime, folic acid 1 mg daily, topiram ate 50 mg twice daily. Social History: The patient smokes tobacco, cigarettes regularly and denies alcohol or IV drug use. Surgical History: Tubal ligation. Family History: Cancer in father, hypertension in mother. Review of Systems: Prior to the onset of her symptoms, she denies any fevers or chills. With symptoms, nausea, headache , left-sided weakness and numbness and coordination. No active genitourinary or gastrointestinal iss ues. She denies any psychiatric issues. Other positives on the systems review such as dermatologica l issues. Physical Examination: Vital Signs: Blood pressure 116/71, pulse of 83, respiratory rate 18 to 22, temperature 97.5, oxygen saturation 98% on room air. General: Ms. Allen is resting in the ICU and she is in no acute distress. HEENT: She is normocephalic, atraumatic. Sclerae are anicteric. Oropharynx is pink and moist. Neck: Supple. Chest: Clear. Heart: Regular. Extremities: Show no edema, cyanosis, or clubbing. Neurological: She is alert and oriented to person, place, time, and situation. She has no cranial n erve deficits on 2 through 12 with symmetric face. Motor Exam: The upper and lower extremities 5/5 proximally and distally. Sensory exam intact to light touch and temperature bilaterally. Coordinati on intact bilaterally. Reflexes 2+ and symmetric in upper and lower extremities. She will be ambula yojana with a gait belt and the physical therapist. Laboratory Studies: Complete blood count with differential is normal. INR 1.12. Basic metabolic pa elder is remarkable initially for a slightly low potassium of 3.4, now corrected to 3.9; calcium is 8.4 . Liver function studies show elevated ALT of 73. Her lipid panel is pending. Urinalysis: 5-10 re d blood cells, 1+ blood. Her COVID testing is negative. Assessment: Ms. Allen is a 42-year-old patient who had multiple admissions with similar symptoms of left-sided weakness, which may or may not be associated with headache. She has no significant carleen nosis in intracranial or cervical blood vessels. She does smoke. The etiology of her symptoms may b e complicated migraine. However, it is not always possible to to rule out an acute ischem ic stroke and so giving TNKs is appropriate in this case as if she did have a stroke, it may have lef t her with a significant deficit. Plan: 1.She will have aspirin and Plavix for 4 weeks, 81 mg aspirin and 75 mg Plavix. 2.Folic acid 1 mg daily. 3.May consider switching her statin since her liver function study is showing elevation with ALT of 73. May consider omega-3 4 g daily. She may be discharged home once out of ICU and follo w up in Dr. Lau's office within the month. MALIA/KATRIN Voice ID: [id number] Report ID: [id number]
--- NOTE | 2023-05-13 16:59 | EKG ---
Test Date: 2023-05-12 Test Time: 17:35:35 Barge Pilot: REYNA MEASUREMENT RESULTS: Intervals: Rate: 85 TX: 182 QRSD: 76 QT: 376 QTc: 447 [place]: P: 29 TX: 182 QRS: 36 T: 38 INTERPRETIVE STATEMENTS: Normal sinus rhythm Normal ECG Compared to ECG 01/24/2023 08:47:14 No significant changes Electronically Signed On 05-13-23 16:56:27 CDT by Barrera Arenas
[2023-05-13 17:25] VITALS: TEMP 97.5
[2023-05-13 18:36] VITALS: BP 108/74
--- NOTE | 2023-05-13 18:59 | RAD REPORT ---
EXAM DESCRIPTION: CT - Head Brain Wo Cont - 05/13/2023 6:23 pm CLINICAL HISTORY: s/p TNK; protocol Headache, drowsiness, CVA symptomology COMPARISON: Ct Stroke Brain Wo Cont dated 05/12/2023; Head angio dated 05/12/2023; Brain Wo Cont dated 05/13/2023; Neck Angio dated 05/12/2023; Head Brain Wo Cont dated 01/24/2023 TECHNIQUE: All CT scans are performed using dose optimization technique as appropriate and may inclu de automated exposure control or mA/KV adjustment according to patient size. FINDINGS: No hemorrhage, hydrocephalus or extra-axial fluid collection is seen.No areas of brain lexy ma or evidence of midline shift. The paranasal sinuses and mastoids are clear. The calvarium is intact. IMPRESSION: No acute intracranial abnormality.
== END 2023-05-13 19:30 | disposition home or self-care (01) | DRG 62 ==
LOC: ER 17:27 → ERHOLD 19:27 → 3RD-ICU 20:14
PROVIDERS: ADMIT Hospitalist; ATTEND Hospitalist
DX: I63.9 Cerebral infarction, unspecified (principal); G81.94 Hemiplegia, unspecified affecting left nondominant side; E78.5 Hyperlipidemia, unspecified; R29.704 NIHSS score 4; E87.6 Hypokalemia; E66.9 Obesity, unspecified; G43.909 Migraine, unspecified, not intractable, without status migrainosus; F17.210 Nicotine dependence, cigarettes, uncomplicated; Z68.31 Body mass index [BMI] 31.0-31.9, adult; Z86.73 Personal history of transient ischemic attack (TIA), and cerebral infarction without residual deficits
CPT/HCPCS: 36415; 70450; 70496; 70498; 70551; 71045; 80048; 80076; 81001; 83690; 83735; 83880; 84484; 85025; 85610; 90471; 92977; 93005; 96361; 96374; 96375; 97116; 97161; 99285; J3101; J7030; J7040; Q2035; Q9967

== ENCOUNTER 2024-01-12 10:21 | Emergency (ER) | payer SELFPAY ==
--- NOTE | 2024-01-12 11:14 | RAD REPORT ---
EXAM DESCRIPTION: CT - Ct Stroke Brain Wo Cont - 01/12/2024 11:04 am CLINICAL HISTORY: STROKE ALERT COMPARISON: Head Brain Wo Cont dated 05/13/2023; Ct Stroke Brain Wo Cont dated 05/12/2023 TECHNIQUE: Noncontrast head CT images ad were obtained without IV contrast. Multiplanar reformats we re generated and reviewed. All CT scans are performed using dose optimization technique as appropriate and may include automated exposure control or mA/KV adjustment according to patient size. FINDINGS: No intracranial hemorrhage, mass, or edema. Midline structures are unremarkable. Normal ventricular caliber for age. Perea-white matter differentiation is preserved, without evidence of acute infarct. No abnormal extra- axial fluid collections. Mastoid air cells are well aerated. Mild right maxillary sinus inflammatory mucosal thickening. No acute bony findings. IMPRESSION: No evidence of an acute intracranial process. The findings were communicated to Rai Antunez on 01/12/2024 at 11:09 hours.
[2024-01-12 11:30] LABS: Absolute Eosinophils 0.2 K/uL (0-0.5); Absolute Monocytes 0.5 K/uL (0.1-1.3); Absolute Neutrophil 3.7 K/uL (1.8-8.0); Basophils % 0.5 % (0-1.3); Eosinophils % 2.9 % (0-4.4); Hematocrit 39.8 % (36.0-45.0); Hemoglobin 13.5 g/dL (12.0-15.0); Lymphocytes % 31.6 % (15.3-44.8); MCH 32.3 pg (27.0-35.0); MCHC 33.9 g/dL (32.0-36.0); MCV 95.3 fL (80-100); MPV 6.5 fL (7.6-11.3); Monocytes % 7.4 % (3.3-12.3); Neutrophils % 57.6 % (41.7-73.7); Nucleated Red Blood Cells % 0.1 % (0-0); Platelets 463 thou/uL (152-406); RBC Red Blood Cell Count 4.17 M/uL (3.86-4.86); Red Cell Distribution Width 12.7 % (12.1-15.2)
[2024-01-12 11:35] LABS: PT Prothrombin Time 12.9 SECONDS (9.5-12.5); PTT, Activated Partial Thromb 30.7 SECONDS (24.3-36.9); Protime INR 1.18
--- NOTE | 2024-01-12 11:36 | RAD REPORT ---
EXAM DESCRIPTION: CT - Head angio - 01/12/2024 11:14 am CLINICAL HISTORY: code stroke COMPARISON: Ct Stroke Brain Wo Cont dated 01/12/2024; Head Brain Wo Cont dated 05/13/2023; Neck Angio d ated 01/12/2024 TECHNIQUE: Axial CT angiography images of the head was performed with multiplanar and maximum intens ity projection reconstructions. Images performed following intravenous administration of 100mL Isovue 370. All CT scans are performed using dose optimization technique as appropriate and may include automated exposure control or mA/KV adjustment according to patient size. FINDINGS: No evidence of large vessel occlusion. No evidence of aneurysm or dissection flap is detec yojana. No flow-limiting stenosis or vascular malformation identified. Antegrade flow is seen in the vertebral arteries. The right vertebral artery is dominant. Diminutive appearance of the right P1 segment, with patent prominent right posterior cerebral artery. The visualized dural venous sinuses are grossly patent. IMPRESSION: No evidence of large vessel occlusion or flow-limiting stenosis.
--- NOTE | 2024-01-12 11:49 | RAD REPORT ---
EXAM DESCRIPTION: CT - Neck Angio - 01/12/2024 11:15 am CLINICAL HISTORY: code stroke COMPARISON: Neck Angio dated 05/12/2023; Neck Angio dated 04/15/2022 TECHNIQUE: Axial CT angiography images of the neck was performed with multiplanar and maximum intens ity projection reconstructions. Images performed following intravenous administration of 100mL Isovue 370. All CT scans are performed using dose optimization technique as appropriate and may include automated exposure control or mA/KV adjustment according to patient size. Quantification of carotid stenosis, if any, is performed according to NASCET criteria. 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 No significant flow abnormality is seen of the common carotid bilaterally. No significant stenosis is identified involving the cervical segments of both internal carotid arteri es. Normal flow is seen within both vertebral arteries. IMPRESSION: No significant flow abnormality of the neck vessels is identified. CAROTID STENOSIS REFERENCE USING NASCET CRITERIA: % ICA stenosis = (1 - narrowest ICA diameter/diameter of distal cervical ICA) x 100. Mild - <50% stenosis. Moderate - 50-69% stenosis. Severe - 70-94% stenosis. Near occlusion - 95-99% stenosis. Occluded - 100% stenosis.
--- NOTE | 2024-01-12 11:59 | RAD REPORT ---
EXAM DESCRIPTION: RADChest Single View01/12/2024 11:23 am CLINICAL HISTORY: dizziness COMPARISON: Chest Single View dated 05/12/2023; Chest Single View dated 04/15/2022; Chest Single View d ated 11/10/2021 TECHNIQUE: Portable AP view of the chest. FINDINGS: The lungs are clear. No pneumothorax or effusion. The cardiomediastinal contours are unre markable. 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 IMPRESSION: No acute cardiopulmonary process.
[2024-01-12 12:03] LABS: Anion Gap 7.4 mEq/L (5.0-15.0); BUN Blood Urea Nitrogen 14 mg/dL (7-18); Bicarbonate 25 mEq/L (21-32); Glomerular Filtration Rate 112 ml/min (=/>90); Glucose Level 166 mg/dL (74-106); Potassium 3.4 mEq/L (3.5-5.1); Sodium Level 137 mEq/L (136-145)
[2024-01-12 12:08] LABS: Troponin High Sensitivity < 3.0 pg/mL (<58.9)
--- NOTE | 2024-01-12 12:43 | ER ---
Nurse's Notes [facility] Name: Mirna Allen Age: 43 yrs Sex: Female : 1980 Arrival Date: 01/12/2024 Time: 10:21 Bed IW1 Private MD: Diagnosis: Headache;Paresthesias;Dizziness Presentation: 01/11 10:44 Chief complaint: Patient states: pt was at work, she got hot and felt flush with ap3 nausea. patient then reports her left arm felt heavy and the bottom of her left foot feels funny. patient states she has a previous stroke but reports no deficits. Coronavirus screen: At this time, the client does not indicate any symptoms associated with coronavirus-19. Ebola Screen: No symptoms or risks identified at this time. Initial Sepsis Screen: Does the patient meet any 2 criteria? No. Patient's initial sepsis screen is negative. Does the patient have a suspected source of infection? No. Patient's initial sepsis screen is negative. Risk Assessment: Do you want to hurt yourself or someone else? Patient reports no desire to harm self or others. 10:44 Method Of Arrival: Ambulatory ap3 10:48 Onset of symptoms was January 12, 2024 at 10:00. ap3 10:50 Acuity: WILLIAM 2 ap3 Triage Assessment: 10:52 The onset of the patients symptoms was January 12, 2024 at 10:00. General: Appears in no ap3 apparent distress. Behavior is calm, cooperative, appropriate for age. Pain: Complains of pain in head. Neuro: Reports dizziness, headache. Cardiovascular: Patient's skin is warm and dry. Respiratory: Airway is patent Respiratory effort is even, unlabored, Respiratory pattern is regular, symmetrical. GI: Reports nausea. Historical: - Allergies: 10:49 No Known Allergies; ap3 - PMHx: 10:49 Hypercholesterolemia; Migraine; Seizure; stroke; ap3 - PSHx: 10:49 tubal ligation; ap3 - Immunization history:: Client reports receiving the 2nd dose of the Covid vaccine, Flu vaccine is not up to date. - Social history:: Smoking status: Reported history of juuling and/or vaping. Screenin:49 Abuse screen: Denies threats or abuse. Nutritional screening: No deficits noted. ap3 Tuberculosis screening: No symptoms or risk factors identified. Vital Signs: 10:44 BP 123 / 92; Pulse 90; Resp 18; Temp 98.4(O); Pulse Ox 98% ; Weight 74.39 kg; Height 4 ap3 ft. 11 in. ; 14:33 Resp 15; jl7 10:44 Body Mass Index 33.12 (74.39 kg, 149.86 cm) ap3 NIH Stroke Scale Scores: 10:51 NIHSS Score: 0 ms3 ED Course: 10:34 Patient arrived in ED. rg4 10:45 Rai Antunez DO is Attending Physician. ms3 10:49 Arm band placed on right wrist. ap3 10:52 Triage completed. ap3 10:53 ED physician to see patient. Dr. Antunez in Triage to evaluate Patient. ap3 11:06 CT Stroke Brain w/o Contrast In Process Unspecified. EDMS 11:16 Head angio In Process Unspecified. EDMS 11:17 Neck Angio In Process Unspecified. EDMS 11:25 Stroke CXR 1 View In Process Unspecified. EDMS 11:27 CT completed. Patient tolerated procedure well. Note: 20 g to rt ac and labs collected ls3 and sent by anahi in ct. 12:15 Initial lab(s) drawn, sent to lab. jl7 12:37 Gustavo Lau MD is Referral Physician. ms3 14:33 Patient has correct armband on for positive identification. Provided Education on: POC. jl7 14:37 No provider procedures requiring assistance completed. Patient did not have IV access jl7 during this emergency room visit. Administered Medications: No medications were administered Medication: 14:37 VIS not applicable for this client. jl7 Outcome: 12:41 Discharge ordered by . ms3 14:38 Discharged to home ambulatory, jl7 14:38 Condition: stable 14:38 Discharge instructions given to patient, family, Instructed on discharge instructions, follow up and referral plans. medication usage, Demonstrated understanding of instructions, follow-up care, medications, Prescriptions given X 1, 14:38 Patient left the ED. jl7 NIH Stroke Scale - NIH Stroke Score Date: 01/12/2024 Time: 10:51 Total Score = 0 10. Dysarthria (speech clarity - read or repeat words) - 0(Normal) 11. Extinction and Inattention (visual/tactile/auditory/spatial/personal) - 0(No abnormality) 1a. Level of Consciousness (LOC) - 0(Alert) 1b. Level of Consciousness (LOC) (Month \T\ Age) - 0(Both) 1c. LOC Commands (Open \T\ Closes Eyes/Surveyor Rod Helper) - 0(Both) 2. Best Gaze (Lateral Gaze Paresis) - 0(Normal) 3. Visual Field Loss - 0(No visual loss) 4. Facial Palsy - 0(Normal) 5a. Left Arm: Motor (10-second hold) - 0(No drift) 5b. Right Arm: Motor (10-second hold) - 0(No drift) 6a. Left Leg: Motor (5-second hold - always test supine) - 0(No drift) 6b. Right Leg: Motor (5-second hold - always test supine) - 0(No drift) 7. Limb Ataxia (finger/nose \T\ heel/okeefe - test with eyes open) - 0(Absent) 8. Sensory Loss (pinprick arms/legs/face) - 0(Normal) 9. Best Language: Aphasia (description/naming/reading) - 0(No aphasia) Initials: ms3 Signatures: Dispatcher [employer] Nuzhat Johnson rg4 Christina Latham, RN RN jl7 Emely Kitchen, CASTRO RN ap3 Gee Nathan ls3 Rai Antunez DO DO ms3
--- NOTE | 2024-01-12 12:43 | EDPHYS ---
Physician Documentation [facility] Name: Mirna Allen Age: 43 yrs Sex: Female : 1980 Arrival Date: 01/12/2024 Time: 10:21 Bed IW1 Private MD: ED Physician Rai Antunez HPI: 01/11 10:51 This 43 yrs old Female presents to ER via Ambulatory with complaints of ms3 Dizziness, Nausea. 10:51 43-year-old female with past medical history of seizure, stroke, hypercholesterolemia, ms3 migraines presents to the emergency department for nausea and dizziness that began while at work at 10 AM. Patient denies chest pain, shortness of breath, fevers, chills. Patient endorses left arm paresthesias.. Historical: - Allergies: 10:49 No Known Allergies; ap3 - PMHx: 10:49 Hypercholesterolemia; Migraine; Seizure; stroke; ap3 - PSHx: 10:49 tubal ligation; ap3 - Immunization history:: Client reports receiving the 2nd dose of the Covid vaccine, Flu vaccine is not up to date. - Social history:: Smoking status: Reported history of juuling and/or vaping. ROS: 10:51 Constitutional: Negative for fever, and chills. Neck: Negative for injury, pain, and ms3 swelling, Cardiovascular: Negative for chest pain, and palpitations. Respiratory: Negative for shortness of breath, cough, wheezing, and pleuritic chest pain, MS/Extremity: Negative for injury and deformity, Skin: Negative for injury, rash, and discoloration, 10:51 Abdomen/GI: Positive for nausea, 10:51 Neuro: Positive for dizziness, headache, Negative for gait disturbance, Exam: 10:51 Constitutional: This is a well developed, well nourished patient who is awake, alert, ms3 and in no acute distress. Head/Face: Normocephalic, atraumatic. Neck: Trachea midline, no cervical lymphadenopathy. Supple, full range of motion without nuchal rigidity, or vertebral point tenderness. No Meningismus. Chest/axilla: Normal chest wall appearance and motion. Nontender with no deformity. Cardiovascular: Regular rate and rhythm with a normal S1 and S2. No gallops, murmurs, or rubs. Normal PMI, no JVD. No pulse deficits. Respiratory: Lungs have equal breath sounds bilaterally, clear to auscultation and percussion. No rales, rhonchi or wheezes noted. No increased work of breathing, no retractions or nasal flaring. Abdomen/GI: Soft, non-tender, with normal bowel sounds. No distension or tympany. No guarding or rebound. No evidence of tenderness throughout. Skin: Warm, dry with normal turgor. Normal color with no rashes, no lesions, and no evidence of cellulitis. MS/ Extremity: Pulses equal, no cyanosis. Neurovascular intact. Full, normal range of motion. Neuro: Awake and alert, GCS 15, oriented to person, place, time, and situation. Cranial nerves II-XII grossly intact. Motor strength 5/5 in all extremities. Sensory grossly intact. Cerebellar exam normal. Normal gait. Vital Signs: 10:44 BP 123 / 92; Pulse 90; Resp 18; Temp 98.4(O); Pulse Ox 98% ; Weight 74.39 kg; Height 4 ap3 ft. 11 in. ; 14:33 Resp 15; jl7 10:44 Body Mass Index 33.12 (74.39 kg, 149.86 cm) ap3 NIH Stroke Scale Scores: 10:51 NIHSS Score: 0 ms3 MDM: 10:51 Differential diagnosis: Arrhythmia versus electrolyte abnormality versus Migraine. ms3 11:02 Patient medically screened. ms3 12:41 Data reviewed: vital signs, nurses notes, lab test result(s), EKG, radiologic studies, ms3 and as a result, I will discharge patient. Consideration of Admission/Observation Escalation of care including admission/observation considered. Discussed case with Dr. Lau and patient to be started on Topamax 25 mg nightly and follow-up in clinic with him. Management of patient was discussed with the following: Woven Label Designer: Dr. Lau. Independent interpretation of the following test(s) in the Emergency Department EKG: See my EKG interpretation above X-Ray: My interpretation is Chest x-ray image reviewed by me does not reveal pneumonia. Care significantly affected by the following chronic conditions: Hyperlipidemia, migraines, seizures, stroke. Counseling: I had a detailed discussion with the patient and/or guardian regarding the historical points, exam findings, and any diagnostic results supporting the discharge/admit diagnosis, lab results, radiology results, the need for outpatient follow up, to return to the emergency department if symptoms worsen or persist or if there are any questions or concerns that arise at home. Special discussion: I discussed with the patient/guardian in detail that at this point there is no indication for admission to the hospital. It is understood, however, that if the symptoms persist or worsen the patient needs to return immediately for re-evaluation. ED course: Discussed labs, imaging, conversation with Dr. Lau with the patient and her . Patient to follow-up with Dr. Lau in 2 to 3 days. Patient understands and agrees with plan. All questions were answered. Return precautions discussed include worsening symptoms, or any other concerns. 01/11 10:51 Order name: Basic Metabolic Panel; Complete Time: 12:22 ms3 01/11 10:51 Order name: CBC with Diff; Complete Time: 12:22 ms3 01/11 10:51 Order name: High Sensitivity Troponin; Complete Time: 12:22 ms3 01/11 10:51 Order name: Protime (+inr); Complete Time: 12:22 ms3 01/11 10:51 Order name: Ptt, Activated; Complete Time: 12:22 ms01/11 11:42 Order name: CREATININE WHOLE BLOOD; Complete Time: 12:22 EDMS 01/11 10:51 Order name: CT Stroke Brain w/o Contrast; Complete Time: 12:22 ms3 01/11 10:51 Order name: Stroke CXR 1 View; Complete Time: 12:22 ms3 01/11 11:05 Order name: Head angio; Complete Time: 12:22 EDMS 01/11 11:05 Order name: Neck Angio; Complete Time: 12:22 EDMS 01/11 10:51 Order name: EKG; Complete Time: 10:51 ms3 01/11 10:51 Order name: Labs collected and sent; Complete Time: 14:04 ms3 01/11 10:51 Order name: NPO; Complete Time: 14:04 ms3 01/11 10:51 Order name: O2 Per Protocol; Complete Time: 14:04 ms3 01/11 10:51 Order name: O2 Sat Monitoring; Complete Time: 14:04 ms3 Administered Medications: No medications were administered Disposition: 15:26 Chart complete. ms3 Disposition Summary: 01/12/24 12:41 Discharge Ordered Notes: Location: Home ms3 Condition: Stable ms3 Diagnosis - Headache ms3 - Paresthesias ms3 - Dizziness ms3 Followup: ms3 - With: Gustavo Lau MD - When: 2 - 3 days - Reason: Recheck today's complaints Discharge Instructions: - Discharge Summary Sheet ms3 - Migraine Headache ms3 - Paresthesia, [id number] ms3 - Dizziness, Trye-jo-Jyct ms3 Forms: - Medication Reconciliation Form ms3 - Antibiotic Education ms3 - Prescription Opioid Use ms3 - Patient Portal Instructions ms3 - Leadership Thank You Letter ms3 Prescriptions: - Topamax 25 mg Oral tablet - take 1 tablet ORAL route every day at bedtime; 15 tablet; Refills: 0, Product ms3 Selection Permitted NIH Stroke Scale - NIH Stroke Score Date: 01/12/2024 Time: 10:51 Total Score = 0 10. Dysarthria (speech clarity - read or repeat words) - 0(Normal) 11. Extinction and Inattention (visual/tactile/auditory/spatial/personal) - 0(No abnormality) 1a. Level of Consciousness (LOC) - 0(Alert) 1b. Level of Consciousness (LOC) (Month \T\ Age) - 0(Both) 1c. LOC Commands (Open \T\ Closes Eyes/Human Performance Consultant) - 0(Both) 2. Best Gaze (Lateral Gaze Paresis) - 0(Normal) 3. Visual Field Loss - 0(No visual loss) 4. Facial Palsy - 0(Normal) 5a. Left Arm: Motor (10-second hold) - 0(No drift) 5b. Right Arm: Motor (10-second hold) - 0(No drift) 6a. Left Leg: Motor (5-second hold - always test supine) - 0(No drift) 6b. Right Leg: Motor (5-second hold - always test supine) - 0(No drift) 7. Limb Ataxia (finger/nose \T\ heel/okeefe - test with eyes open) - 0(Absent) 8. Sensory Loss (pinprick arms/legs/face) - 0(Normal) 9. Best Language: Aphasia (description/naming/reading) - 0(No aphasia) Initials: ms3 Signatures: Dispatcher [employer] Emely Washburn RN RN ap3 Rai Antunez DO DO ms3 Corrections: (The following items were deleted from the chart) 10:55 10:51 Neuro: Positive for dizziness, ms3 ms3
[2024-01-12 15:33] VITALS: BP 123/92; TEMP 98.4; O2SAT 98
--- NOTE | 2024-01-15 11:50 | EKG ---
Test Date: 2024-01-12 Test Time: 17:44:48 Warehouse Assistant: ANGELA MEASUREMENT RESULTS: Intervals: Rate: 96 NE: 170 QRSD: 86 QT: 366 QTc: 462 [place]: P: 56 NE: 170 QRS: -8 T: 67 INTERPRETIVE STATEMENTS: Normal sinus rhythm Possible Left atrial enlargement Low voltage QRS Cannot rule out Anterior infarct, age undetermined Abnormal ECG Compared to ECG 05/12/2023 17:35:35 Low QRS voltage now present Myocardial infarct finding now present Electronically Signed On 01-15-24 11:48:43 CDT by Jimmy Saul
== END 2024-01-12 14:38 | disposition home or self-care (01) ==
LOC: ER 10:21
DX: R51.9 Headache, unspecified (principal); R20.2 Paresthesia of skin; R42 Dizziness and giddiness
CPT/HCPCS: 36415; 70450; 70496; 70498; 71045; 80048; 82565; 84484; 85025; 85610; 85730; 93005; 99283; Q9967